=== PATIENT | male | born 1960 | race Caucasian/White ===

== ENCOUNTER 2016-09-11 05:24 | Day surgery (SDC) | payer OTHER ==
[2016-09-06 14:22] VITALS: BMI 33.7
[2016-09-11] MEDS ORDERED: POVIDONE-IODINE OINTMENT 10% - 28.4 GM TUBE ONE (12:09)
[2016-09-11] MEDS ORDERED: LIDOCAINE HCL 1%, 10 MG/ML (20ML VIAL) ONE (12:09)
[2016-09-11] MEDS ORDERED: HEPARIN NA (PORCINE) 5,000 UNITS/ML 1ML VIAL ONE (12:09)
--- NOTE | 2016-09-11 12:26 | HP ---
Satellite [facility] - Chief Complaint Chief Complaint: Renal failure History of Present Illness: 56 year old man who has ESRD on HD since April with Permacath. Chronic access needed. He is left handed. History Source: Patient Limitations to Obtaining History: No Limitations - Past Medical History Allergies/Adverse Reactions: Allergies Allergy/AdvReac Type Severity Reaction Status Date / Time No Known Allergies Allergy Verified 09/11/16 10:41 Cardiovascular: Yes: HTN Pulmonary: Yes: COPD Endocrine: Yes: Diabetes Mellitus - Current Medications Current Medications: Home Medications Medication Instructions Recorded Albuterol Sulfate Inhaler - 1 puff DAILY 09/06/16 [Ventolin HFA Inhaler -] Amlodipine Besylate 10 mg PO DAILY 09/06/16 Atorvastatin Ca [Lipitor] 20 mg PO DAILY 09/06/16 Calcium Acetate 667 mg PO DAILY 09/06/16 Cholecalciferol (Vitamin D3) 5,000 unit PO DAILY 09/06/16 [Vitamin D3] Fluticasone/Vilanterol [Breo 1 each IH DAILY 09/06/16 Ellipta 100-25 Mcg INH] Furosemide [Lasix] 40 mg PO ASDIR 09/06/16 Hydralazine HCl 100 mg PO BID 09/06/16 Insulin (Levemir) [Levemir Flexpen 20 units SQ DAILY 09/06/16 -] Satellite Physical Exam - Physical Examination Vital Signs: Vital Signs Period Temp Pulse Resp BP Sys/Sandoval Pulse Ox Last 24 Hr 98.2 F 84 20 114/62 99 General Appearance: Alert & Oriented x3 ENT: Clear Lung: Clear to auscultation Heart: Regular rate & rhythm Abdomen: Soft Extremities: No edema Satellite Impression/Plan - Impression/Plan Impression: ESRD on HD Operative Procedure: Creation AV fistula right arm Date to be Performed: 09/11/16
[2016-09-11] MEDS ORDERED: PAPAVERINE HCL 30 MG/1 ML 10 ML VIAL NR ONE (12:31)
[2016-09-11] MEDS ORDERED: PROPOFOL 20 ML ONE (12:31)
[2016-09-11] MEDS ORDERED: MIDAZOLAM HCL 2 MG/2 ML SINGLE DOSE VIAL ONE ×2 (12:32→12:36)
[2016-09-11] MEDS ORDERED: LIDOCAINE HCL/PF 2% SDV 5ML VIAL ONE (12:45)
[2016-09-11] MEDS ORDERED: LIDOCAINE HCL 1%, 10 MG/ML (20ML VIAL) IJ ONE (13:08)
[2016-09-11] MEDS ORDERED: ACETAMINOPHEN 325 MG TABLET (FP) PO PRN (13:59)
[2016-09-11] MEDS ORDERED: oxyCODONE HCL 5 MG TABLET PO PRN (13:59)
--- NOTE | 2016-09-11 13:59 | OP ---
Operative Note - Note: Operative Date: 09/11/16 Pre-Operative Diagnosis: ESRD Operation: Creation AV fistula right arm Post-Operative Diagnosis: Same as Pre-op Surgeon: Severo Little Anesthesiologist/CHURN TENDER: Milind Ramírez Anesthesia: Fractional Operative Report Dictated: Yes
[2016-09-11] MEDS ORDERED: ONDANSETRON 4 MG/2 ML VIAL IVPUSH PRN (14:04)
[2016-09-11] MEDS ORDERED: PROMETHAZINE HCL 25 MG/1 ML VIAL IVPUSH PRN (14:04)
[2016-09-11] MEDS ORDERED: SODIUM CHLORIDE 1,000 ML IV SCH (14:15)
[2016-09-11 15:42] VITALS: TEMP 97.4
[2016-09-11 15:59] VITALS: BP 133/65; PULSE 71
--- NOTE | 2016-09-14 07:58 | OP ---
DATE OF OPERATION: 09/11/2016 SURGEON: Severo Barajas MD PROCEDURE: Creation of arteriovenous fistula, right arm. PREOPERATIVE DIAGNOSIS: Renal failure. POSTOPERATIVE DIAGNOSIS: Renal failure. ANESTHESIA: Fractional. ANESTHESIOLOGIST: Addison Ramírez MD OPERATIVE FINDINGS: The right cephalic vein was patent down to the wrist. The radial artery was approximately 3 mm in diameter. DESCRIPTION OF OPERATIVE PROCEDURE: Following routine patient identification with side and site verification, intravenous sedation was established. The right arm and hand were prepped with ChloraPrep. Xylocaine 1% was infiltrated over the radial artery and cephalic vein just proximal to the wrist and a longitudinal incision made between the two. The vein was mobilized from its bed with sharp dissection and cautery for hemostasis. The vein was ligated distally and incised. It was distended with heparin and papaverine solution. Number 5 and number 8 feeding tubes were passed proximally without resistance. The vein was filled with heparin and was occluded with a small bulldog clamp. The artery was then exposed and encircled proximally and distally with vessel loops. Small side branches were ligated and divided. The artery was then occluded with Yasargil clips and opened with a longitudinal arteriotomy measuring approximately 6 mm. The vein was freed and spatulated and anastomosed to the side of the artery with running suture of 6-0 Prolene. Prior to completion of the suture line, the artery was allowed to back bleed and flushed, and the vessels were all flushed with heparin solution. Suture line was completed, and all vessels were released. There was good flow through the anastomosis with a palpable thrill proximally. Bleeding from the suture line was controlled with Surgicel. When hemostasis was adequate, the wound was irrigated and closed with interrupted suture of 3-0 Vicryl and skin emerita. Sterile dressings were applied, and the patient was taken to the recovery room in stable condition. SEVERO BARAJAS M.D. [id number]
== END 2016-09-11 15:15 | disposition home or self-care (01) ==
LOC: JASU-SURG 05:24
PROVIDERS: ATTEND Surgery
PROC: 031B0ZF Bypass Right Radial Artery to Lower Arm Vein, Open Approach (ICD-10-PCS; principal; 2016-09-11 12:30)
DX: I12.0 Hypertensive chronic kidney disease with stage 5 chronic kidney disease or end stage renal disease (principal); E11.22 Type 2 diabetes mellitus with diabetic chronic kidney disease; N18.6 End stage renal disease; N17.9 Acute kidney failure, unspecified; Z79.4 Long term (current) use of insulin
CPT/HCPCS: 36415; 84132; 94760; J1644

== ENCOUNTER 2019-01-12 10:32 | Inpatient (IN) | payer OTHER, MEDICARE ==
[2019-01-12 11:47] LABS: BASO % 0.9 % (0-2.0); HEMATOCRIT 37.3 % (35.4-49); HEMOGLOBIN 12.2 GM/dL (11.7-16.9); LYMPH % 16.6 % (8-40); MCH 31.2 pg (25.7-33.7); MCHC 32.7 g/dl (32.0-35.9); MEAN CELL VOLUME 95.4 fl (80-96); MEAN PLT VOLUME 8.3 fl (7.5-11.1); MONO % 3.2 % (3.8-10.2); NEUT % 78.3 % (42.8-82.8); PLATELET COUNT 167 K/MM3 (134-434); RDW 15.1 % (11.9-15.9); WHITE BLOOD COUNT 10.2 K/mm3 (4.0-10.0)
--- NOTE | 2019-01-12 11:48 | PDOC ---
*Physical Exam - Vital Signs Last Vital Signs Temp Pulse Resp BP Pulse Ox 97.8 F 44 L 16 181/62 H 99 01/12/19 10:39 01/12/19 10:39 01/12/19 10:39 01/12/19 10:39 01/12/19 10:39 ED Treatment Course - LABORATORY CBC & Chemistry Diagram: 01/13/19 05:50 01/13/19 05:50 Medical Decision Making - Critical Care Time Total Critical Care Time (minutes): 60 Critical Care Statement: The care of this patient involved high complexity decision making to prevent further life threatening deterioration of the patient 's condition and/or to evaluate & treat vital organ system(s) failure or risk of failure. - Medical Decision Making 01/12/19 11:48 This is a 58-year-old male end-stage renal disease presenting to the emergency department because his fistula is clogged. Last dialysis was 4 days ago. Patient denies chest pain, shortness of breath. 58-year-old male presenting with thrombosed fistula Pt seen by Midlevel Provider under my direct supervision Pt interviewed and examined Ancillary studies reviewed EKG: Bradycardia, intraventricular block, no ST elevations, EKG is concerning for hyperkalemia First set of labs hemolyzed Laboratory Tests 01/12/19 12:30 Potassium 8.3 H* BUN 82.5 H Creatinine 14.8 H* Labs finally return Pt hyperkalemic Insulin/Dextrose/Calcium/HCO3 ordered Lokelma approved by Dr Cross Pt walking around the ER Angry, refusing multiple interventions Dr. Cross has seen this patient in the ER After seeing Dr Cross, he is agreeable to getting into the stretcher Upgraded to ICU based on lab Earl Ba in the ER to place permacath I agree with plan as outlined by Midlevel Provider 01/12/19 13:48 01/12/19 13:48 Discharge - Discharge Information Problems reviewed: Yes Clinical Impression/Diagnosis: Thrombosis of arteriovenous fistula Qualifiers: Encounter type: initial encounter Qualified Code(s): T82.868A - Thrombosis due to vascular prosthetic devices, implants and grafts, initial encounter Condition: Fair - Admission Yes - Follow up/Referral - Patient Discharge Instructions - Post Discharge Activity
[2019-01-12 12:05] LABS: INR 1.07 (0.83-1.09); PROTHROMBIN TIME (PATIENT) 12.6 SEC (9.7-13.0)
[2019-01-12 12:08] LABS: ACTIVATED PTT 32.8 SECONDS (25.2-36.5)
--- NOTE | 2019-01-12 12:20 | PDOC ---
History of Present Illness - General Chief Complaint: Dialysis Shunt Problem Stated Complaint: SENT BY PCP Time Seen by Provider: 01/12/19 10:53 History Source: Patient Exam Limitations: No Limitations Past History - Past Medical History Allergies/Adverse Reactions: Allergies Allergy/AdvReac Type Severity Reaction Status Date / Time No Known Allergies Allergy Verified 01/12/19 10:43 Home Medications: Ambulatory Orders Albuterol Sulfate Inhaler - [Ventolin HFA Inhaler -] 1 puff DAILY 09/06/16 Amlodipine Besylate 10 mg PO DAILY 09/06/16 Atorvastatin Ca [Lipitor] 20 mg PO DAILY 09/06/16 Calcium Acetate 667 mg PO DAILY 09/06/16 Cholecalciferol (Vitamin D3) [Vitamin D3] 5,000 unit PO DAILY 09/06/16 Fluticasone/Vilanterol [Breo Ellipta 100-25 Mcg INH] 1 each IH DAILY 09/06/16 Furosemide [Lasix] 40 mg PO ASDIR 09/06/16 Hydralazine HCl 100 mg PO BID 09/06/16 Insulin (Levemir) [Levemir Flexpen -] 20 units SQ DAILY 09/06/16 Anemia: No Asthma: Yes (on inhalers) Cancer: No Cardiac Disorders: No CVA: No COPD: No CHF: No Diabetes: Yes Dialysis: Yes GI Disorders: No Disorders: No HTN: Yes Hypercholesterolemia: No Liver Disease: No Seizures: No Thyroid Disease: No - Psycho Social/Smoking Cessation Hx Smoking History: Former smoker Have you smoked in the past 12 months: No If you are a former smoker, when did you quit?: 2009 Information on smoking cessation initiated: No Hx Alcohol Use: No Drug/Substance Use Hx: No *Physical Exam - Vital Signs Last Vital Signs Temp Pulse Resp BP Pulse Ox 97.8 F 44 L 16 181/62 H 99 01/12/19 10:39 01/12/19 10:39 01/12/19 10:39 01/12/19 10:39 01/12/19 10:39 - Physical Exam General Appearance: No: Apparent Distress Respiratory/Chest: positive: Lungs Clear, Normal Breath Sounds. negative: Respiratory Distress Cardiovascular: positive: Bradycardia. negative: Murmur Gastrointestinal/Abdominal: positive: Soft. negative: Tender Extremity: positive: Other (R forearm AV fistula - difficult to feel thrill, no erythema) Integumentary: positive: Normal Color. negative: Swelling, Ecchymosis, Bruising Neurologic: positive: Alert ED Treatment Course - LABORATORY CBC & Chemistry Diagram: 01/12/19 11:33 01/12/19 11:33 - ADDITIONAL ORDERS Additional order review: Laboratory Results 01/12/19 11:33 PT with INR 12.60 INR 1.07 PTT (Actin FS) 32.8 01/12/19 11:33 RBC 3.90 L MCV 95.4 MCHC 32.7 RDW 15.1 MPV 8.3 Neutrophils % 78.3 Lymphocytes % 16.6 Monocytes % 3.2 L Eosinophils % 1.0 Basophils % 0.9 - RADIOLOGY Radiology Studies Ordered: Category Date Time Status CHEST PA & LAT [RAD] Stat Radiology 01/12/19 11:20 Ordered Medical Decision Making - Medical Decision Making 58 y/o M hx of ESRD on HD (//Fri; last dialysis 01/09), HTN, DM was sent by Dr. Little for clotted R arm AV fistula to be admitted to go to OR today. Patient was unable to get dialysis done today due to clotted fistula. Denies fever, sob, cp, abd pain, n/v. D/W Dr. Little - wants pre-op work-up and to keep NPO; patient to go to OR at 4:30 PM today Patient's PCP, Dr. Chavira, made aware as well EKG: Ventricular rate at 34 bpm, RBBB noted (seen on prior EKG as well) Prior EKG was from 2 years ago Patient is on Coreg Patient will need cardiac clearance prior to going to OR Awaiting to hear back from Dr. Wallace for cardiac clearance 01/12/19 12:14 Dr. Wallace currently seeing patient CMP hemolyzed; will get another sample Patient to be admitted 01/12/19 12:26 Discharge - Discharge Information Problems reviewed: Yes Clinical Impression/Diagnosis: Thrombosis of arteriovenous fistula Qualifiers: Encounter type: initial encounter Qualified Code(s): T82.868A - Thrombosis due to vascular prosthetic devices, implants and grafts, initial encounter Condition: Stable - Admission Yes - Additional Discharge Information Prescription Drug Monitoring Program (I-STOP) results: I-STOP not reviewed - Follow up/Referral Referrals: Orquidea Chavira MD [Primary Care Provider] - - Patient Discharge Instructions - Post Discharge Activity
--- NOTE | 2019-01-12 12:38 | CON.CARD ---
Consult Consult Specialty:: Cardiology Referred by:: ER/Dr. Chavira Reason for Consultation:: Preop, abnl ekg - History of Present Illness Chief Complaint: clotted AV fistula History of Present Illness: 58 year old man with a pmh HTN, DMII, HLD, ESRD on HD last 01/09, sent to ER by vascular for clotted R AV fistula, planned for declotting, noted to be bradycardic with EKG showing likely ventricular escape rhythm at 34bpm. pt seen and examined in the ER. Pt angry and not cooperative with history or exam. pt states he has no heart problem. states he is always bradycardic and that his potassium level is always high. denies chest pain, sob, palpitations, pnd, orthopnea or LE edema. chemistry panel is not back yet as first sample clotted. - History Source History Provided By: Patient, Medical Record Limitations to Obtaining History: Poor Historian - Past Medical History Cardio/Vascular: Yes: HTN Pulmonary: Yes: COPD Endocrine: Yes: Diabetes Mellitus - Alcohol/Substance Use Hx Alcohol Use: No - Smoking History Smoking history: Former smoker Have you smoked in the past 12 months: No If you are a former smoker, when did you quit?: 2009 Home Medications - Allergies Allergies/Adverse Reactions: Allergies Allergy/AdvReac Type Severity Reaction Status Date / Time No Known Allergies Allergy Verified 01/12/19 10:43 - Home Medications Home Medications: Ambulatory Orders Albuterol Sulfate Inhaler - [Ventolin HFA Inhaler -] 1 puff DAILY 09/06/16 Amlodipine Besylate 10 mg PO DAILY 09/06/16 Atorvastatin Ca [Lipitor] 20 mg PO DAILY 09/06/16 Calcium Acetate 667 mg PO DAILY 09/06/16 Cholecalciferol (Vitamin D3) [Vitamin D3] 5,000 unit PO DAILY 09/06/16 Fluticasone/Vilanterol [Breo Ellipta 100-25 Mcg INH] 1 each IH DAILY 09/06/16 Furosemide [Lasix] 40 mg PO ASDIR 09/06/16 Hydralazine HCl 100 mg PO BID 09/06/16 Insulin (Levemir) [Levemir Flexpen -] 20 units SQ DAILY 09/06/16 Review of Systems - Review of Systems Constitutional: denies: No Symptoms, Chills, Diaphoresis, Fever, Lethargy, Loss of Appetite, Malaise, Night Sweats, Unintentional Wgt. Loss, Weakness, Other Eyes: denies: No Symptoms, Blind Spots, Blurred Vision, Double Vision, Eye Pain , Floaters, Photophobia, Recent Change in Vision, Other HENT: denies: No Symptoms, Difficult Swallowing, Ear Discharge, Ear Pain, Epistaxis, Gingival Bleeding, Hearing Loss, Mouth Swelling, Nasal Congestion, Ocular Prosthesis, Throat Pain, Toothache, Ringing in Ears, Other Neck: denies: No Symptoms, Decreased ROM, Lumps, Pain on Movement, Stiffness, Swollen Glands, Tenderness, Other Cardiovascular: denies: No Symptoms, Chest Pain, Edema, Palpitations, Shortness of Breath, Other Respiratory: denies: No Symptoms, Cough, Exercise Intolerance, Hemoptysis, Orthopnea, PND, Snoring, SOB, SOB on Exertion, Wheezing, Other Gastrointestinal: denies: No Symptoms, Abdominal Pain, Bloating, Constipation, Diarrhea, Dysphagia, Indigestion, Melena, Nausea, Rectal Bleeding, Vomiting, Vomiting Blood, Other Genitourinary: denies: No Symptoms, Burning, Discharge, Dysuria, Flank Pain, Frequency, Hematuria, Incontinence, Lesions, Menses, Pain, Testicular Mass, Testicular Pain, Testicular Swelling, Urgency, Vaginal Bleeding, Other Breasts: denies: No Symptoms Reported, See HPI, Breast Implants, Discharge from Nipple, Lumps, Pain, Skin Changes, Other Musculoskeletal: denies: No Symptoms, Back Pain, Crepitus, Decreased ROM, Extremity Pain, Joint Pain, Joint Swelling, Muscle Pain, Muscle Cramps, Muscle Weakness, Other Integumentary: denies: No Symptoms, Blister, Bruising, Change in Color, Eczema, Erythema, Incision, Lesions, Lump, Pallor, Pruritis, Rash, Wound, Other Neurological: denies: No Symptoms, Change in LOC, Change in Speech, Confusion, Dizziness, Headache, Incoordination, Numbness, Parasthesia, Pre-Existing Deficit , Seizure, Syncope, Tremors, Unsteady Gait, Weakness, Other Endocrine: denies: No Symptoms, Excessive Sweating, Flushing, Increased Hunger, Increased Thirst, Intolerance to Cold, Intolerance to Heat, Unexplained Weight Gain, Unexplained Weight Loss, Other Hematology/Lymphatic: denies: No Symptoms, Easily Bruised, Excessive Bleeding, Swollen Glands, Other Psychiatric: denies: No Symptoms, Altered Sleep Pattern, Anxiety, Depression, Hallucinations, Panic, Paranoia, Suicidal, Other Vital Signs: Vital Signs Temperature 97.8 F 01/12/19 10:39 Pulse Rate 44 L 01/12/19 10:39 Respiratory Rate 16 01/12/19 10:39 Blood Pressure 181/62 H 01/12/19 10:39 O2 Sat by Pulse Oximetry (%) 99 01/12/19 10:39 Constitutional: Yes: No Distress, Calm Eyes: Yes: Conjunctiva Clear, EOM Intact HENT: Yes: Atraumatic, Normocephalic Neck: Yes: Supple, Trachea Midline Respiratory: Yes: Regular, CTA Bilaterally. No: Rales, Rhonchi, Wheezes Gastrointestinal: Yes: Normal Bowel Sounds, Soft Cardiovascular: Yes: Bradycardia. No: Regular Rate and Rhythm, Tachycardia, Pulse Irregular, Gallop, Rub, Varicosities JVD: No Carotid Bruit: No PMI: Non-Displaced Heart Sounds: Yes: S1, S2 Murmur: No: Systolic Murmur Edema: No Peripheral Pulses WNL: Yes Peripheral Pulses: 2+ Left Doralis Pedis, 2+ Right Dorsalis Pedis Neurological: Yes: Alert, Oriented Psychiatric: Yes: Alert, Oriented - Other Data Labs, Other Data: CBC, BMP 01/12/19 11:33 INR, PTT INR 1.07 (0.83-1.09) 01/12/19 11:33 ekg-ventricular escape rhythm 34bpm. Imaging - Results EKG: Report Reviewed, Image Reviewed Assessment/Plan 58 year old man with a pmh HTN, DMII, HLD, ESRD on HD last 01/09, sent to ER by vascular for clotted R AV fistula, planned for declotting, noted to be bradycardic with EKG showing likely ventricular escape rhythm at 34bpm. pt seen and examined in the ER. Pt angry and not cooperative with history or exam. pt states he has no heart problem. states he is always bradycardic and that his potassium level is always high. denies chest pain, sob, palpitations, pnd, orthopnea or LE edema. chemistry panel is not back yet as first sample clotted. Preop cardiovascular exam -do not recommend going to surgery with an unstable rhythm -pt should have further evaluation and treatment of source of bradyarrhythmia first Abnormal ekg -appears c/w ventricular escape rhythm at 34bpm -check chemistry panel candida for K+ -if K+ abnl will need correction -stop Carvedilol -can give glucagon -move to monitored bed pt became very agitated during this conversation. would not discuss his current condition any further. raised the possibility of needing a PPM but he refused to discuss it.
--- NOTE | 2019-01-12 13:11 | HP ---
Admitting History and Physical - Primary Care Physician PCP: Orquidea Chavira - Admission Chief Complaint: Not working fistula History of Present Illness: Patient is a 58 y/o male with past medical history of ESRD on HD, DM, HTN. Patient presented to [facility] from [facility] where they were unable to access R forearm fistula. Patient was unable to have HD done due to clotted fistula. Patient was to go to OR today with Dr Little for his clotted fistula when Pre-Op EKG showed slow ventricular rate. Cardiology was consulted and was not cleared from cardiac perspective for surgery. History Source: Patient Limitations to Obtaining History: No Limitations - Past Medical History Cardiovascular: Yes: HTN Pulmonary: Yes: COPD Endocrine: Yes: Diabetes Mellitus - Smoking History Smoking history: Former smoker Have you smoked in the past 12 months: No If you are a former smoker, when did you quit?: 2009 - Alcohol/Substance Use Hx Alcohol Use: No - Social History Usual Living Arrangement: Yes: Alone ADL: Independent Home Medications - Allergies Allergies/Adverse Reactions: Allergies Allergy/AdvReac Type Severity Reaction Status Date / Time No Known Allergies Allergy Verified 01/12/19 10:43 - Home Medications Home Medications: Ambulatory Orders Albuterol Sulfate Inhaler - [Ventolin HFA Inhaler -] 1 puff DAILY 09/06/16 Amlodipine Besylate 10 mg PO DAILY 09/06/16 Atorvastatin Ca [Lipitor] 20 mg PO DAILY 09/06/16 Calcium Acetate 667 mg PO DAILY 09/06/16 Cholecalciferol (Vitamin D3) [Vitamin D3] 5,000 unit PO DAILY 09/06/16 Fluticasone/Vilanterol [Breo Ellipta 100-25 Mcg INH] 1 each IH DAILY 09/06/16 Furosemide [Lasix] 40 mg PO ASDIR 09/06/16 Hydralazine HCl 100 mg PO BID 09/06/16 Insulin (Levemir) [Levemir Flexpen -] 20 units SQ DAILY 09/06/16 Review of Systems - Review of Systems Constitutional: reports: No Symptoms Eyes: reports: No Symptoms HENT: reports: No Symptoms Neck: reports: No Symptoms Cardiovascular: reports: No Symptoms Respiratory: reports: No Symptoms Gastrointestinal: reports: Diarrhea Genitourinary: reports: No Symptoms Breasts: reports: No Symptoms Reported Musculoskeletal: reports: No Symptoms Integumentary: reports: No Symptoms Neurological: reports: No Symptoms Endocrine: reports: No Symptoms Hematology/Lymphatic: reports: No Symptoms Psychiatric: reports: No Symptoms Physical Examination Vital Signs: Vital Signs Temperature 97.8 F 01/12/19 10:39 Pulse Rate 44 L 01/12/19 10:39 Respiratory Rate 16 01/12/19 10:39 Blood Pressure 181/62 H 01/12/19 10:39 O2 Sat by Pulse Oximetry (%) 99 01/12/19 10:39 Constitutional: Yes: No Distress, Calm, Obese Eyes: Yes: Conjunctiva Clear HENT: Yes: Atraumatic Neck: Yes: Supple Cardiovascular: Yes: Bradycardia Respiratory: Yes: Regular, Diminished Gastrointestinal: Yes: Normal Bowel Sounds, Soft, Abdomen, Obese Musculoskeletal: Yes: WNL Extremities: Yes: WNL Edema: Yes Edema: LLE: Trace, RLE: Trace Neurological: Yes: Alert, Oriented Psychiatric: Yes: Alert, Oriented, Agitated Labs: CBC, BMP 01/12/19 11:33 Problem List - Problems (1) ESRD on hemodialysis Assessment/Plan: -Renal on board -BUN/Cr 82.5/14.8 -monitor renal function -K 8.3 will upgrade patient to ICU, surgical PA will place shiley for emergent dialysis -tele monitoring Code(s): N18.6 - END STAGE RENAL DISEASE; Z99.2 - DEPENDENCE ON RENAL DIALYSIS (2) HTN (hypertension) Assessment/Plan: -Carvedilol on hold to ventricular rate -Hydralazine Code(s): I10 - ESSENTIAL (PRIMARY) HYPERTENSION (3) Diabetes mellitus Assessment/Plan: -BGM ACHS -Levemir -ISS -HgA1c Code(s): E11.9 - TYPE 2 DIABETES MELLITUS WITHOUT COMPLICATIONS (4) Thrombosis of arteriovenous fistula Assessment/Plan: -Vascular on board -OR on hold due to ventricular rate of 34 -surgical PA will place Shiley in meantime for emergent dialysis Code(s): T82.868A - THROMBOSIS DUE TO VASCULAR PROSTH DEV/GRFT, INIT Qualifiers: Encounter type: initial encounter Qualified Code(s): T82.868A - Thrombosis due to vascular prosthetic devices, implants and grafts, initial encounter (5) Abnormal EKG Assessment/Plan: -Cardiology on board -ICU monitoring -EKG with ventricular rate 34bpm -secondary to hyperkalemia K 8.3 -K 8.3 will upgrade patient to ICU, surgical PA will place shiley for emergent dialysis Code(s): R94.31 - ABNORMAL ELECTROCARDIOGRAM [ECG] [EKG] Assessment/Plan see problem list dvt ppx
[2019-01-12 13:14] LABS: BILIRUBIN,TOTAL 0.4 mg/dL (0.2-1); BLOOD UREA NITROGEN 82.5 mg/dL (7-18); CALCIUM 8.5 mg/dL (8.5-10.1); TOT PROT 7.4 g/dl (6.4-8.2)
[2019-01-12 13:22] LABS: CREATININE 14.8 mg/dL (0.55-1.3); POTASSIUM 8.3 mmol/L (3.5-5.1)
[2019-01-12] MEDS ORDERED: INSULIN REGULAR HUMAN 100 UNITS/ML *VIAL IVPUSH ONE ×2 (13:23→13:32)
[2019-01-12] MEDS ORDERED: DEXTROSE 50%-WATER - 25 GM/50 ML VIAL IVPUSH ONE (13:23)
[2019-01-12] MEDS ORDERED: CALCIUM GLUCONATE 10% - 1,000 MG/10 ML VIAL IVPUSH ONE (13:23)
[2019-01-12] MEDS ORDERED: SODIUM BICARBONATE 8.4% 50 MEQ/50 ML DISP.SYRIN IVPUSH ONE (13:33)
[2019-01-12] MEDS ORDERED: DEXTROSE 50%-WATER 25 GM/50 ML DISP.SYRIN ONE (13:35)
[2019-01-12] MEDS ORDERED: CALCIUM GLUCONATE 10% - 1,000 MG/10 ML VIAL ONE (13:35)
[2019-01-12] MEDS ORDERED: FUROSEMIDE 40 MG TABLET (FP) PO SCH (14:00)
--- NOTE | 2019-01-12 14:46 | PROC ---
Central Line Insertion - Procedure Note TIME OUT performed prior to this procedure with verbal confirmation of correct patient identity, correct side, agreement of the procedure, correct patient position, availability of necessary equipment. The consent form is complete and accurate. Risk of possible infection and bleeding a have been discussed with the patient. Safety precautions based on patient history or medication use has been addressed. Coag profile within normal limits to do procedure safely. Indication: Other (RUE AVF clotted and needs HD. ) Central Line: Dialysis Cath, Dual Lumen Position: Supine Area prepped with Chlorhexidine solution then draped using sterile barrier protection. Anesthesia: Lidocaine 1% Technique used: Seldinger Ultrasound Guided Assistance: Yes Site: Right Femoral Dark venous non-pulsatile flow noted from hub of needle. The catheter was introduced. Guide wire removed intact. Each port aspirated then flushed with sterile normal saline and Tegu caps placed. Line secured to skin with nylon suture. Biopatch placed around base of line. Sterile occlusive dressing applied. No complications. Patient tolerated the procedure well. Line ok to use for HD.
[2019-01-12] MEDS ORDERED: FUROSEMIDE 40 MG TABLET (FP) ONE ×2 (14:47→14:51)
[2019-01-12] MEDS ORDERED: SODIUM BICARBONATE 8.4% 50 MEQ/50 ML VIAL ONE (14:47)
--- NOTE | 2019-01-12 14:53 | CONSULT ---
Consult Consult Specialty:: Nephrology Reason for Consultation:: ESRD - History of Present Illness Chief Complaint: sent in for clotted access History of Present Illness: Pt is a 58 year old male with pmhx of htn, dm, hld, esrd who presented to the ER with a clotted av fistula. He was found to be hansa and have an ecg with vent escape rhythm at 34 bpm. His first set of labs were hemolyzed. His potassium was 8.3. I was called to evaluate pt for HD. He says he feels well. He denies shortness of breath or palpitations. He was anxious earlier but is calmer now. His last HD was on 01/09. - History Source History Provided By: Patient, Medical Record - Past Medical History Cardio/Vascular: Yes: HTN Pulmonary: Yes: COPD Renal/: Yes: Renal Failure, Renal Inusuff, Hemodialysis Endocrine: Yes: Diabetes Mellitus - Alcohol/Substance Use Hx Alcohol Use: No - Smoking History Smoking history: Former smoker Have you smoked in the past 12 months: No If you are a former smoker, when did you quit?: 2009 - Social History ADL: Independent Home Medications - Allergies Allergies/Adverse Reactions: Allergies Allergy/AdvReac Type Severity Reaction Status Date / Time No Known Allergies Allergy Verified 01/12/19 10:43 - Home Medications Home Medications: Ambulatory Orders Albuterol Sulfate Inhaler - [Ventolin HFA Inhaler -] 1 puff DAILY 09/06/16 Amlodipine Besylate 10 mg PO DAILY 09/06/16 Atorvastatin Ca [Lipitor] 20 mg PO DAILY 09/06/16 Calcium Acetate 667 mg PO DAILY 09/06/16 Cholecalciferol (Vitamin D3) [Vitamin D3] 5,000 unit PO DAILY 09/06/16 Fluticasone/Vilanterol [Breo Ellipta 100-25 Mcg INH] 1 each IH DAILY 09/06/16 Furosemide [Lasix] 40 mg PO ASDIR 09/06/16 Hydralazine HCl 100 mg PO BID 09/06/16 Insulin (Levemir) [Levemir Flexpen -] 20 units SQ DAILY 09/06/16 Family Medical History Family History: Denies Review of Systems - Review of Systems Constitutional: reports: No Symptoms Eyes: reports: No Symptoms HENT: reports: No Symptoms Neck: reports: No Symptoms Cardiovascular: reports: No Symptoms Respiratory: reports: No Symptoms Gastrointestinal: reports: No Symptoms Genitourinary: reports: No Symptoms Musculoskeletal: reports: No Symptoms Integumentary: reports: No Symptoms Neurological: reports: No Symptoms Endocrine: reports: No Symptoms Hematology/Lymphatic: reports: No Symptoms Physical Exam Vital Signs: Vital Signs Temperature 97.8 F 01/12/19 10:39 Pulse Rate 44 L 01/12/19 10:39 Respiratory Rate 16 01/12/19 10:39 Blood Pressure 181/62 H 01/12/19 10:39 O2 Sat by Pulse Oximetry (%) 99 01/12/19 10:39 Constitutional: Yes: Calm Eyes: Yes: Conjunctiva Clear HENT: Yes: Atraumatic Neck: Yes: Supple Cardiovascular: Yes: Bradycardia, Pulse Irregular, S1, S2 Gastrointestinal: Yes: Soft Renal/: Yes: WNL Musculoskeletal: Yes: WNL Edema: Yes Edema: LLE: 1+, RLE: 1+ Neurological: Yes: Oriented Psychiatric: Yes: Oriented Labs: CBC, BMP 01/12/19 11:33 01/12/19 12:30 Laboratory Tests 01/12/19 01/12/19 01/12/19 11:33 11:33 12:30 WBC 10.2 H Hgb 12.2 PT with INR 12.60 INR 1.07 PTT (Actin FS) 32.8 Sodium 134 L Potassium 8.3 H* BUN 82.5 H Creatinine 14.8 H* Random Glucose 148 H Problem List - Problems (1) Hyperkalemia Code(s): E87.5 - HYPERKALEMIA (2) Abnormal EKG Code(s): R94.31 - ABNORMAL ELECTROCARDIOGRAM [ECG] [EKG] (3) Diabetes mellitus Code(s): E11.9 - TYPE 2 DIABETES MELLITUS WITHOUT COMPLICATIONS (4) ESRD on hemodialysis Code(s): N18.6 - END STAGE RENAL DISEASE; Z99.2 - DEPENDENCE ON RENAL DIALYSIS (5) HTN (hypertension) Code(s): I10 - ESSENTIAL (PRIMARY) HYPERTENSION (6) Thrombosis of arteriovenous fistula Code(s): T82.868A - THROMBOSIS DUE TO VASCULAR PROSTH DEV/GRFT, INIT Qualifiers: Encounter type: initial encounter Qualified Code(s): T82.868A - Thrombosis due to vascular prosthetic devices, implants and grafts, initial encounter Assessment/Plan Current Medications Generic Name Dose Route Start Last Admin Trade Name Corby PRN Reason Stop Dose Admin Calcium Acetate 667 mg 01/12/19 17:30 Phoslo - PO TIDCM [facility] Chlorhexidine Gluconate 1 applic 01/12/19 22:00 Hibiclens For Decolonization - TP HS [facility] Furosemide 40 mg 01/12/19 14:00 Lasix - PO BID@0600,1400 [facility] Heparin Sodium (Porcine) 5,000 unit 01/12/19 22:00 Heparin - SQ BID [facility] Hydralazine HCl 50 mg 01/12/19 22:00 Apresoline - PO BID [facility] Insulin Aspart 1 vial 01/12/19 16:30 Novolog Vial Sliding Scale - SQ ACHS [facility] Protocol Insulin Detemir 30 units 01/12/19 22:00 Levemir Vial SQ HS [facility] Mupirocin 1 applic 01/12/19 22:00 Bactroban Ointment (For Decolonization) - NS 01/17/19 21:59 BID [facility] Impression 1. ESRD 2. hyperkalemia 3. arrythmia 4. htn 5. dm 6. hld 7. clotted av fistula Plan - spoke to vascular, they will place shiley cath - admit to ICU - pt for urgent bedside dialysis in ICU - check potassium post HD - monitor on tele monitor - discussed with cardio and primary team
[2019-01-12] MEDS ORDERED: SODIUM CHLORIDE 250 ML IV PRN ×2 (15:00→15:01)
--- NOTE | 2019-01-12 15:54 | CONSULT ---
Consultation: REQUESTING PROVIDER: CONSULT REQUEST: We have been asked to medically evaluate this patient for ICU admission. HISTORY OF PRESENT ILLNESS: 58 y/o/m with PMHx of HTN, DM, HLD, ESRD on HD (Friday, , Friday) with last treatment on 01/09 who was sent to the ER for a clotted right sided AV fistula. He states his fistula was working normally on Friday but today it was not working. In the ED he was noted to be bradycardic and had an EKG showing ventricular escape rhythm at 34bpm. He was also found to be hyperkalemic at 8.3. He denies chest pain, SOB, palpitations, SOB, cough, fever, chills, headache, Past Medical History: HTN, DM, HLD, ESRD Past Surgical History: Right AV fistula REVIEW OF SYSTEMS: As per HPI PHYSICAL EXAMINATION Vital Signs - 24 hr 01/12/19 01/12/19 10:39 14:45 Temperature 97.8 F Pulse Rate 44 L Pulse Rate [ 45 L Apical] Respiratory 16 18 Rate Blood Pressure 181/62 H Blood Pressure 187/58 H [Arm] O2 Sat by Pulse 99 96 Oximetry (%) GENERAL: Awake, alert, and fully oriented, in no acute distress. HEAD: Normal with no signs of trauma. EYES: PERRL, EOMI EARS, NOSE, THROAT: oropharynx clear without exudates. Moist mucous membranes. NECK: Normal range of motion, supple without lymphadenopathy, JVD, or masses. LUNGS: Breath sounds equal, clear to auscultation bilaterally. No wheezes, and no crackles. No accessory muscle use. HEART: Bradycardic, regular rhythm, normal S1 and S2 without murmur, rub or gallop. ABDOMEN: Soft, nontender, not distended, normoactive bowel sounds, no guarding, no rebound, no masses EXTREMITIES: 2+ pulses, warm, well-perfused. No peripheral edema. NEUROLOGICAL: Cranial nerves II-XII intact. Normal speech. Normal gait. PSYCHIATRIC: Cooperative. Good eye contact. Appropriate mood and affect. Laboratory Results - last 24 hr 01/12/19 01/12/19 01/12/19 11:33 11:33 11:33 WBC 10.2 H RBC 3.90 L Hgb 12.2 Hct 37.3 MCV 95.4 MCH 31.2 MCHC 32.7 RDW 15.1 Plt Count 167 MPV 8.3 Absolute Neuts (auto) 8.0 Neutrophils % 78.3 Lymphocytes % 16.6 Monocytes % 3.2 L Eosinophils % 1.0 Basophils % 0.9 Nucleated RBC % 0 PT with INR 12.60 INR 1.07 PTT (Actin FS) 32.8 Sodium Cancelled Potassium Cancelled Chloride Cancelled Carbon Dioxide Cancelled Anion Gap Cancelled BUN Cancelled Creatinine Cancelled Est GFR (CKD-EPI)AfAm Cancelled Est GFR (CKD-EPI)NonAf Cancelled Random Glucose Cancelled Calcium Cancelled Total Bilirubin Cancelled AST Cancelled ALT Cancelled Alkaline Phosphatase Cancelled Total Protein Cancelled Albumin Cancelled Blood Type Antibody Screen 01/12/19 01/12/19 01/12/19 11:33 12:30 14:30 WBC RBC Hgb Hct MCV MCH MCHC RDW Plt Count MPV Absolute Neuts (auto) Neutrophils % Lymphocytes % Monocytes % Eosinophils % Basophils % Nucleated RBC % PT with INR INR PTT (Actin FS) Sodium 134 L Potassium 8.3 H* Chloride 103 Carbon Dioxide 23 Anion Gap 8 BUN 82.5 H Creatinine 14.8 H* Est GFR (CKD-EPI)AfAm 3.66 Est GFR (CKD-EPI)NonAf 3.16 Random Glucose 148 H Calcium 8.5 Total Bilirubin 0.4 AST 16 ALT 16 Alkaline Phosphatase 80 Total Protein 7.4 Albumin 4.0 Blood Type O POSITIVE O POSITIVE Antibody Screen Negative Active Medications Generic Name Dose Route Start Last Admin Trade Name Freq PRN Reason Stop Dose Admin Calcium Acetate 667 mg 01/12/19 17:30 Phoslo - PO TIDCM [facility] Chlorhexidine Gluconate 1 applic 01/12/19 22:00 Hibiclens For Decolonization - TP HS [facility] Furosemide 40 mg 01/12/19 14:00 01/12/19 14:50 Lasix - PO 40 mg BID@0600,1400 [facility] Administration Heparin Sodium (Porcine) 5,000 unit 01/12/19 22:00 Heparin - SQ BID [facility] Hydralazine HCl 50 mg 01/12/19 22:00 Apresoline - PO BID [facility] Sodium Chloride 250 mls @ 3,000 mls/hr 01/12/19 15:00 Normal Saline - IV 01/13/19 15:00 PRN PRN Hypotension during Dialysis Sodium Chloride 250 mls @ 3,000 mls/hr 01/12/19 15:01 Normal Saline - IV 01/13/19 15:01 PRN PRN Hypotension during Dialysis Insulin Aspart 1 vial 01/12/19 16:30 Novolog Vial Sliding Scale - SQ ACHS [facility] Protocol Insulin Detemir 30 units 01/12/19 22:00 Levemir Vial SQ HS [facility] Mupirocin 1 applic 01/12/19 22:00 Bactroban Ointment (For Decolonization) - NS 01/17/19 21:59 BID [facility] ASSESSMENT/PLAN: 58 y/o/m with PMHx of HTN, DM, HLD, ESRD on HD with last treatment on 01/09 who was sent to the ER for a clotted right sided AV fistula. Admitted for bradycardia and Hyperkalemia requiring urgent dialysis. #Neuro - AAOx3, monitor #Cardio - EKG showing likely ventricular escape rhythm at 34 bpm - Bradycardia likely due to Hyperkalemia vs Beta Stanislaw use - Hyperkalemia at 8.3, correcting with medical management and HD - Patient should not be on Beta Blockers during hospital stay or on discharge due to RBBB - Calcium Gluconate, Sodium Bicarb given in ED - Heart rate improving with HD, monitor - On Hydralazine and Lasix at home, will continue - Cardio on board #Resp - Keep O2 saturation >90% #Renal - ESRD, clotted R AV fistula. Last HD on 01/09 - Shiley catheter placed in ED on 01/12 - BUN/Cr at 82.5/14.8. Monitor renal function - Hyperkalemia of 8.3, correcting with medical management and hemodialysis - repeat BMP after HD - Nephro on board #GI - no active issues - Hep B and C tests pending #Endo - Hx of DM - ISS - BGMs #ID - afebrile, WBC 10.2 - monitor #Prophylaxis - Heparin #FEN - Renal Diet - Hyperkalemia, correcting #Dispo - ICU monitoring Visit type - Emergency Visit Emergency Visit: Yes ED Registration Date: 01/12/19 Care time: The patient presented to the Emergency Department on the above date and was hospitalized for further evaluation of their emergent condition. - New Patient This patient is new to me today: Yes Date on this admission: 01/12/19 - Critical Care Critical Care patient: Yes Total Critical Care Time (in minutes): 36 Critical Care Statement: The care of this patient involved high complexity decision making to prevent further life threatening deterioration of the patient 's condition and/or to evaluate & treat vital organ system(s) failure or risk of failure. ATTENDING PHYSICIAN STATEMENT I saw and evaluated the patient. I reviewed the resident's note and discussed the case with the resident. I agree with the resident's findings and plan as documented. SUBJECTIVE: OBJECTIVE: ASSESSMENT AND PLAN:
[2019-01-12 16:03] VITALS: BMI 32.8
[2019-01-12] MEDS ORDERED: CALCIUM ACETATE 667 MG CAPSULE (FP) PO SCH (17:30)
[2019-01-12] MEDS ORDERED: hydrALAZINE HCL 50 MG TABLET (FP) PO ONE (18:03)
[2019-01-12] MEDS: INSULIN SLIDING SCALE (NOVOLOG) 1 VIAL SQ SCH ×2 (18:51→21:53)
[2019-01-12 19:50] LABS: BLOOD UREA NITROGEN 30.2 mg/dL (7-18); CALCIUM 8.4 mg/dL (8.5-10.1); CREATININE 5.9 mg/dL (0.55-1.3); POTASSIUM 3.5 mmol/L (3.5-5.1)
[2019-01-12] MEDS ORDERED: hydrALAZINE HCL 20 MG/ML VIAL IVPUSH ONE (21:03)
--- NOTE | 2019-01-12 21:37 | PN ---
Progress Note (short form) - Note Progress Note: If OR time available in AM will proceed with fistula thrombectomy. Keep patient NPO.
[2019-01-12] MEDS ORDERED: hydrALAZINE HCL 50 MG TABLET (FP) PO SCH (22:00)
[2019-01-12] MEDS ORDERED: HEPARIN NA (PORCINE) 5,000 UNITS/ML 1ML VIAL SQ SCH (22:00)
[2019-01-12] MEDS ORDERED: INSULIN (LEVEMIR) 100 UNITS/ML UNITS SQ SCH (22:00)
[2019-01-12] MEDS ORDERED: MUPIROCIN 2% TOPICAL OINTMENT FOR DECOLONIZATION NS SCH (22:00)
[2019-01-12] MEDS ORDERED: CARVEDILOL 12.5 MG TABLET (FP) PO SCH (22:00)
[2019-01-12] MEDS ORDERED: CHLORHEXIDINE GLUCONATE 4% CLEANSER FOR DECOLONIZATION TP SCH (22:00)
[2019-01-13] MEDS ORDERED: hydrALAZINE HCL 50 MG TABLET (FP) PO ONE (05:17)
[2019-01-13] MEDS: INSULIN SLIDING SCALE (NOVOLOG) 1 VIAL SQ SCH ×3 (06:06→16:44)
[2019-01-13] MEDS: FUROSEMIDE 40 MG TABLET (FP) PO SCH ×2 (06:06→14:23)
[2019-01-13] MEDS ORDERED: INSULIN (LEVEMIR) 100 UNITS/ML UNITS SQ SCH ×2 (07:00→22:00)
[2019-01-13] MEDS ORDERED: hydrALAZINE HCL 20 MG/ML VIAL IVPUSH ONE ×2 (07:42→09:15)
[2019-01-13 07:57] LABS: BASO % 0.5 % (0-2.0); EOS % 0.9 % (0-4.5); HEMATOCRIT 33.4 % (35.4-49); HEMOGLOBIN 11.4 GM/dL (11.7-16.9); LYMPH % 13.5 % (8-40); MCH 31.9 pg (25.7-33.7); MCHC 34.1 g/dl (32.0-35.9); MEAN CELL VOLUME 93.5 fl (80-96); MEAN PLT VOLUME 8.3 fl (7.5-11.1); MONO % 4.7 % (3.8-10.2); NEUT % 80.4 % (42.8-82.8); PLATELET COUNT 113 K/MM3 (134-434); RBC 3.57 M/mm3 (4.00-5.60); RDW 15.1 % (11.9-15.9); WHITE BLOOD COUNT 5.1 K/mm3 (4.0-10.0)
[2019-01-13 08:20] LABS: ALBUMIN 3.1 g/dl (3.4-5.0); BILIRUBIN,TOTAL 0.4 mg/dL (0.2-1); BLOOD UREA NITROGEN 47.5 mg/dL (7-18); CALCIUM 7.7 mg/dL (8.5-10.1); MAGNESIUM 1.7 mg/dL (1.8-2.4); PHOSPHOROUS 6.5 mg/dL (2.5-4.9); POTASSIUM 5.1 mmol/L (3.5-5.1); TOT PROT 6.2 g/dl (6.4-8.2)
[2019-01-13 08:23] LABS: CREATININE 10.8 mg/dL (0.55-1.3)
[2019-01-13] MEDS ORDERED: PROPOFOL 20 ML ONE ×3 (08:56→10:18)
[2019-01-13] MEDS ORDERED: LIDOCAINE HCL 1%, 10 MG/ML (20ML VIAL) ONE (09:00)
[2019-01-13] MEDS ORDERED: HEPARIN NA (PORCINE) 5,000 UNITS/ML 1ML VIAL ONE ×3 (09:00→10:01)
--- NOTE | 2019-01-13 09:06 | PN ---
Progress Note, Physician - Current Medication List Current Medications: Active Medications Calcium Acetate (Phoslo -) 667 mg PO TIDCM [facility] Chlorhexidine Gluconate (Hibiclens For Decolonization -) 1 applic TP HS [facility] Last Admin: 01/12/19 21:40 Dose: 1 applic Furosemide (Lasix -) 40 mg PO BID@0600,1400 [facility] Last Admin: 01/13/19 06:06 Dose: 40 mg Heparin Sodium (Porcine) (Heparin -) 5,000 unit SQ BID [facility] Hydralazine HCl (Apresoline -) 50 mg PO BID [facility] Sodium Chloride (Normal Saline -) 250 mls @ 3,000 mls/hr IV PRN PRN PRN Reason: Hypotension during Dialysis Stop: 01/13/19 15:00 Sodium Chloride (Normal Saline -) 250 mls @ 3,000 mls/hr IV PRN PRN PRN Reason: Hypotension during Dialysis Stop: 01/13/19 15:01 Insulin Aspart (Novolog Vial Sliding Scale -) 1 vial SQ ACHS [facility]; Protocol Last Admin: 01/13/19 06:06 Dose: 8 units Insulin Detemir (Levemir Vial) 30 units SQ HS [facility] Insulin Detemir (Levemir Vial) 10 units SQ 0700 [facility] Mupirocin (Bactroban Ointment (For Decolonization) -) 1 applic NS BID [facility] Stop: 01/17/19 21:59 Last Admin: 01/13/19 02:36 Dose: 1 applic - Objective Vital Signs: Vital Signs Temperature 98.4 F 01/13/19 06:00 Pulse Rate 74 01/13/19 08:00 Respiratory Rate 18 01/13/19 08:00 Blood Pressure 196/94 H 01/13/19 08:00 O2 Sat by Pulse Oximetry (%) 96 01/12/19 22:00 Cardiovascular: Yes: S1, S2 Respiratory: Yes: Regular, CTA Bilaterally Gastrointestinal: Yes: Normal Bowel Sounds, Soft Labs: CBC, BMP 01/13/19 05:50 01/13/19 05:50 INR, PTT INR 1.07 (0.83-1.09) 01/12/19 11:33 Assessment/Plan - Problems (1) ESRD on hemodialysis Assessment/Plan: -Renal on board -Trend BUN/Cr -monitor renal function -K was8.[address] and had emergent dialysis--improved--5 -tele monitoring Code(s): N18.6 - END STAGE RENAL DISEASE; Z99.2 - DEPENDENCE ON RENAL DIALYSIS (2) HTN (hypertension) Assessment/Plan: -Carvedilol on hold to ventricular rate -Hydralazine Code(s): I10 - ESSENTIAL (PRIMARY) HYPERTENSION (3) Diabetes mellitus Assessment/Plan: -BGM ACHS -Levemir -ISS -HgA1c Code(s): E11.9 - TYPE 2 DIABETES MELLITUS WITHOUT COMPLICATIONS (4) Thrombosis of arteriovenous fistula Assessment/Plan: -Vascular on board-Thrombectomy today -OR on hold yesterday due to ventricular rate of 34 Code(s): T82.868A - THROMBOSIS DUE TO VASCULAR PROSTH DEV/GRFT, INIT Qualifiers: Encounter type: initial encounter Qualified Code(s): T82.868A - Thrombosis due to vascular prosthetic devices, implants and grafts, initial encounter (5) Abnormal EKG Assessment/Plan: -Cardiology on board -ICU monitoring -EKG with ventricular rate 34bpm--now 74 -secondary to hyperkalemia K 8.3 Code(s): R94.31 - ABNORMAL ELECTROCARDIOGRAM [ECG] [EKG]
[2019-01-13] MEDS ORDERED: HEPARIN NA (PORCINE) 5,000 UNITS/ML 1ML VIAL SQ ONE (09:30)
[2019-01-13] MEDS ORDERED: LIDOCAINE HCL 1%, 10 MG/ML (20ML VIAL) INF ONE (09:30)
[2019-01-13] MEDS ORDERED: SUCCINYLCHOLINE CHLORIDE 200 MG/10 ML SYRINGE ONE (09:31)
[2019-01-13] MEDS ORDERED: MIDAZOLAM HCL 2 MG/2 ML SINGLE DOSE VIAL ONE (09:31)
[2019-01-13] MEDS ORDERED: ceFAZolin SODIUM 1 GM VIAL ONE (09:33)
[2019-01-13] MEDS ORDERED: LIDOCAINE HCL/PF 2% SDV 5ML VIAL ONE (09:33)
[2019-01-13] MEDS ORDERED: DEXAMETHASONE SOD PHOSPHATE 4 MG/1 ML VIAL ONE (09:33)
[2019-01-13] MEDS ORDERED: SODIUM CHLORIDE 0.9% P/F 10 ML VIAL IJ ONE (09:33)
[2019-01-13] MEDS ORDERED: LABETALOL HCL 5 MG/1 ML (100MG/20 ML VIAL) ONE (09:44)
[2019-01-13] MEDS ORDERED: hydrALAZINE HCL 50 MG TABLET (FP) PO SCH (10:00)
[2019-01-13] MEDS ORDERED: HEPARIN NA (PORCINE) 5,000 UNITS/ML 1ML VIAL SQ SCH (10:00)
[2019-01-13] MEDS: CALCIUM ACETATE 667 MG CAPSULE (FP) PO SCH ×3 (10:28→17:56)
--- NOTE | 2019-01-13 11:06 | OP ---
Operative Note - Note: Operative Date: 01/13/19 Pre-Operative Diagnosis: Thrombosed AV fistula right arm Operation: Percutaneous suction thrombectomy, venoplasty AV fistula Findings: Thrombosed AV fistula, stenosis of venous outflow in forearm Post-Operative Diagnosis: Same as Pre-op Surgeon: Severo Little Anesthesiologist/SOFTWARE PRODUCT SPECIALIST: Nitin Savage Anesthesia: Fractional Estimated Blood Loss (mls): 10
[2019-01-13] MEDS ORDERED: ASPIRIN 81 MG CHEWABLE TABLETS PO SCH (11:15)
[2019-01-13] MEDS ORDERED: CARVEDILOL 6.25 MG TABLET (FP) PO SCH (11:45)
[2019-01-13] MEDS ORDERED: amLODIPine BESYLATE 10 MG TABLET (FP) PO SCH (11:45)
--- NOTE | 2019-01-13 12:14 | EKG ---
Test Reason : Blood Pressure : / mmHG Vent. Rate : 075 BPM Atrial Rate : 075 BPM P-R Int : 162 ms QRS Dur : 138 ms QT Int : 456 ms P-R-T Axes : 044 -56 034 degrees QTc Int : 509 ms SINUS RHYTHM WITH OCCASIONAL PREMATURE VENTRICULAR COMPLEXES RIGHT BUNDLE BRANCH BLOCK LEFT ANTERIOR FASCICULAR BLOCK BIFASCICULAR BLOCK MINIMAL VOLTAGE CRITERIA FOR LVH, MAY BE NORMAL VARIANT ABNORMAL ECG WHEN COMPARED WITH ECG OF 12-JAN-2019 11:11, SINUS RHYTHM HAS REPLACED IDIOVENTRICULAR RHYTHM VENT. RATE HAS INCREASED BY 41 BPM Confirmed by MICHA NOBLE MD ([id number]) on 01/13/2019 12:14:02 PM Referred By: Confirmed By:MICHA NOBLE MD
--- NOTE | 2019-01-13 12:22 | EKG ---
Test Reason : Blood Pressure : / mmHG Vent. Rate : 069 BPM Atrial Rate : 069 BPM P-R Int : 166 ms QRS Dur : 142 ms QT Int : 454 ms P-R-T Axes : 050 -55 018 degrees QTc Int : 486 ms NORMAL SINUS RHYTHM RIGHT BUNDLE BRANCH BLOCK LEFT ANTERIOR FASCICULAR BLOCK BIFASCICULAR BLOCK MINIMAL VOLTAGE CRITERIA FOR LVH, MAY BE NORMAL VARIANT ABNORMAL ECG WHEN COMPARED WITH ECG OF 12-JAN-2019 19:45, PREMATURE VENTRICULAR COMPLEXES ARE NO LONGER PRESENT Confirmed by REAL ONEILL, MICHA ([id number]) on 01/13/2019 12:22:12 PM Referred By: Confirmed By:MICHA NOBLE MD
--- NOTE | 2019-01-13 12:22 | EKG ---
Test Reason : Blood Pressure : / mmHG Vent. Rate : 034 BPM Atrial Rate : 030 BPM P-R Int : 000 ms QRS Dur : 172 ms QT Int : 508 ms P-R-T Axes : 000 -61 007 degrees QTc Int : 381 ms IDIOVENTRICULAR RHYTHM RIGHT BUNDLE BRANCH BLOCK LEFT ANTERIOR FASCICULAR BLOCK BIFASCICULAR BLOCK MINIMAL VOLTAGE CRITERIA FOR LVH, MAY BE NORMAL VARIANT ABNORMAL ECG WHEN COMPARED WITH ECG OF 10-SEP-2016 13:26, IDIOVENTRICULAR RHYTHM HAS REPLACED SINUS RHYTHM VENT. RATE HAS DECREASED BY 47 BPM Confirmed by MICHA NOBLE MD ([id number]) on 01/13/2019 12:22:05 PM Referred By: Confirmed By:MICHA NOBLE MD
[2019-01-13] MEDS ORDERED: ONDANSETRON 4 MG/2 ML VIAL IVPUSH ONE (12:30)
[2019-01-13] MEDS: LABETALOL HCL 100 MG TABLET (FP) PO SCH ×2 (12:33→16:21)
--- NOTE | 2019-01-13 12:42 | PN ---
Teaching Attending Note Name of Resident: Ranjit Liu ATTENDING PHYSICIAN STATEMENT I saw and evaluated the patient. I reviewed the resident's note and discussed the case with the resident. I agree with the resident's findings and plan as documented. SUBJECTIVE: Pt seen and examined in the ICU. s/p thrombectomy/venoplasty of AVF. Denies shortness of breath or chest pain. OBJECTIVE: Vital Signs Period Temp Pulse Resp BP Sys/Sandoval Pulse Ox Last 24 Hr 97.8 F-98.4 F 35-81 12-20 136-200/8-97 92-98 Intake & Output 01/10/19 01/11/19 01/12/19 01/13/19 23:59 23:59 23:59 23:59 Intake Total 1150 250 Output Total 1500 10 Balance -350 240 Weight 113 kg 112.973 kg Gen: NAD at rest Heart: RRR Lung: decreased breath sounds at the bases Abd: soft, nontender Ext: no edema CBC, BMP 01/13/19 05:50 01/13/19 05:50 Active Medications Amlodipine Besylate (Norvasc -) 10 mg PO BID [facility] Last Admin: 01/13/19 12:33 Dose: 10 mg Aspirin (Asa -) 81 mg PO DAILY [facility] Last Admin: 01/13/19 12:34 Dose: 81 mg Calcium Acetate (Phoslo -) 667 mg PO TIDCM [facility] Last Admin: 01/13/19 10:28 Dose: Not Given Carvedilol (Coreg -) 6.25 mg PO BID [facility] Last Admin: 01/13/19 12:33 Dose: 6.25 mg Chlorhexidine Gluconate (Hibiclens For Decolonization -) 1 applic TP HS [facility] Last Admin: 01/12/19 21:40 Dose: 1 applic Furosemide (Lasix -) 40 mg PO BID@0600,1400 [facility] Last Admin: 01/13/19 06:06 Dose: 40 mg Heparin Sodium (Porcine) (Heparin -) 5,000 unit SQ BID [facility] Hydralazine HCl (Apresoline -) 25 mg PO TID [facility] Sodium Chloride (Normal Saline -) 250 mls @ 3,000 mls/hr IV PRN PRN PRN Reason: Hypotension during Dialysis Stop: 01/13/19 15:00 Sodium Chloride (Normal Saline -) 250 mls @ 3,000 mls/hr IV PRN PRN PRN Reason: Hypotension during Dialysis Stop: 01/13/19 15:01 Insulin Aspart (Novolog Vial Sliding Scale -) 1 vial SQ ACHS [facility]; Protocol Last Admin: 01/13/19 12:26 Dose: Not Given Insulin Detemir (Levemir Vial) 30 units SQ HS [facility] Insulin Detemir (Levemir Vial) 10 units SQ 0700 [facility] Last Admin: 01/13/19 10:28 Dose: Not Given Labetalol HCl (Normodyne -) 300 mg PO TID [facility] Last Admin: 01/13/19 12:33 Dose: 300 mg Mupirocin (Bactroban Ointment (For Decolonization) -) 1 applic NS BID [facility] Stop: 01/18/19 21:59 ASSESSMENT AND PLAN: Clotted AVF s/p thrombectomy/venoplasty POD #0 Severe Hyperkalemia s/p emergent HD Bradycardia resolved ESRD on HD HTN DM Hyperlipidemia Anemia - HD per renal - monitor lytes - BP control - PO as tolerated - DVT prophylaxis - can monitor on floor
--- NOTE | 2019-01-13 13:01 | PN ---
Physical Exam: SUBJECTIVE: Patient seen and examined. No active issues overnight. Denies lightheadedness, SOB, chest pain. No fistula bleeding noted. Sprained R ankle recently causing abrasions OBJECTIVE: Vital Signs Period Temp Pulse Resp BP Sys/Sandoval Pulse Ox Last 24 Hr 97.8 F-98.4 F 35-81 12-20 136-200/8-97 92-98 GENERAL: The patient is awake, alert, and fully oriented, in no acute distress. LUNGS: Breath sounds equal, clear to auscultation bilaterally, no wheezes, no crackles, no accessory muscle use. HEART: Regular rate and rhythm, S1, S2 without murmur, rub or gallop. ABDOMEN: Soft, nontender, nondistended, normoactive bowel sounds, no guarding, no rebound, no hepatosplenomegaly, no masses. EXTREMITIES: warm, well-perfused, no edema. R ankle abrasions NEUROLOGICAL: AOx3. Normal speech. Full sensation/strength/ROM BLE Laboratory Results - last 24 hr 01/12/19 01/12/19 01/12/19 12:30 14:30 15:30 WBC RBC Hgb Hct MCV MCH MCHC RDW Plt Count MPV Absolute Neuts (auto) Neutrophils % Lymphocytes % Monocytes % Eosinophils % Basophils % Nucleated RBC % Sodium 134 L Potassium 8.3 H* Chloride 103 Carbon Dioxide 23 Anion Gap 8 BUN 82.5 H Creatinine 14.8 H* Est GFR (CKD-EPI)AfAm 3.66 Est GFR (CKD-EPI)NonAf 3.16 POC Glucometer Random Glucose 148 H Hemoglobin A1c % Calcium 8.5 Phosphorus Magnesium Total Bilirubin 0.4 AST 16 ALT 16 Alkaline Phosphatase 80 Creatine Kinase Creatine Kinase Index CK-MB (CK-2) Troponin I Total Protein 7.4 Albumin 4.0 Triglycerides Cholesterol Total LDL Cholesterol HDL Cholesterol Hep C Ab Diagnostic Cancelled Hepatitis C RNA Cancelled HCV RNA PCR log animal cop/ml Cancelled HCV RNA (PCR) IUs/ml Cancelled HCV RNA PCR w/Genot Rflx Cancelled Liver Fibrosis Interp Cancelled Blood Type O POSITIVE 01/12/19 01/12/19 01/12/19 18:49 18:58 21:51 WBC RBC Hgb Hct MCV MCH MCHC RDW Plt Count MPV Absolute Neuts (auto) Neutrophils % Lymphocytes % Monocytes % Eosinophils % Basophils % Nucleated RBC % Sodium 139 Potassium 3.5 Chloride 100 Carbon Dioxide 31 Anion Gap 8 BUN 30.2 H Creatinine 5.9 H Est GFR (CKD-EPI)AfAm 11.12 Est GFR (CKD-EPI)NonAf 9.59 POC Glucometer 113 188 Random Glucose 129 H Hemoglobin A1c % Calcium 8.4 L Phosphorus Magnesium Total Bilirubin AST ALT Alkaline Phosphatase Creatine Kinase Creatine Kinase Index CK-MB (CK-2) Troponin I Total Protein Albumin Triglycerides Cholesterol Total LDL Cholesterol HDL Cholesterol Hep C Ab Diagnostic Hepatitis C RNA HCV RNA PCR log animal cop/ml HCV RNA (PCR) IUs/ml HCV RNA PCR w/Genot Rflx Liver Fibrosis Inter Blood Type 01/13/19 01/13/19 01/13/19 05:50 05:50 05:50 WBC 5.1 RBC 3.57 L Hgb 11.4 L Hct 33.4 L MCV 93.5 MCH 31.9 MCHC 34.1 RDW 15.1 Plt Count 113 L D MPV 8.3 Absolute Neuts (auto) 4.1 Neutrophils % 80.4 Lymphocytes % 13.5 Monocytes % 4.7 Eosinophils % 0.9 Basophils % 0.5 Nucleated RBC % 0 Sodium 136 Potassium 5.1 Chloride 99 Carbon Dioxide 29 Anion Gap 8 BUN 47.5 H Creatinine 10.8 H* Est GFR (CKD-EPI)AfAm 5.35 Est GFR (CKD-EPI)NonAf 4.62 POC Glucometer Random Glucose 395 H Hemoglobin A1c % 9.2 H Calcium 7.7 L Phosphorus 6.5 H Magnesium 1.7 L Total Bilirubin 0.4 AST 13 L ALT 15 Alkaline Phosphatase 93 Creatine Kinase 211 Creatine Kinase Index 1.4 CK-MB (CK-2) 3.1 Troponin I 0.04 Total Protein 6.2 L Albumin 3.1 L Triglycerides 168 H Cholesterol 164 Total LDL Cholesterol 103 H HDL Cholesterol 31 L Hep C Ab Diagnostic Hepatitis C RNA HCV RNA PCR log animal cop/ml HCV RNA (PCR) IUs/ml HCV RNA PCR w/Genot Rflx Liver Fibrosis [facility] Blood Type 01/13/19 01/13/19 01/13/19 05:58 09:05 09:46 WBC RBC Hgb Hct MCV MCH MCHC RDW Plt Count MPV Absolute Neuts (auto) Neutrophils % Lymphocytes % Monocytes % Eosinophils % Basophils % Nucleated RBC % Sodium Potassium Chloride Carbon Dioxide Anion Gap BUN Creatinine Est GFR (CKD-EPI)AfAm Est GFR (CKD-EPI)NonAf POC Glucometer 390 76 93 Random Glucose Hemoglobin A1c % Calcium Phosphorus Magnesium Total Bilirubin AST ALT Alkaline Phosphatase Creatine Kinase Creatine Kinase Index CK-MB (CK-2) Troponin I Total Protein Albumin Triglycerides Cholesterol Total LDL Cholesterol HDL Cholesterol Hep C Ab Diagnostic Hepatitis C RNA HCV RNA PCR log animal cop/ml HCV RNA (PCR) IUs/ml HCV RNA PCR w/Genot Rflx Liver Fibrosis Interp Blood Type 01/13/19 12:24 WBC RBC Hgb Hct MCV MCH MCHC RDW Plt Count MPV Absolute Neuts (auto) Neutrophils % Lymphocytes % Monocytes % Eosinophils % Basophils % Nucleated RBC % Sodium Potassium Chloride Carbon Dioxide Anion Gap BUN Creatinine Est GFR (CKD-EPI)AfAm Est GFR (CKD-EPI)NonAf POC Glucometer 130 Random Glucose Hemoglobin A1c % Calcium Phosphorus Magnesium Total Bilirubin AST ALT Alkaline Phosphatase Creatine Kinase Creatine Kinase Index CK-MB (CK-2) Troponin I Total Protein Albumin Triglycerides Cholesterol Total LDL Cholesterol HDL Cholesterol Hep C Ab Diagnostic Hepatitis C RNA HCV RNA PCR log animal cop/ml HCV RNA (PCR) IUs/ml HCV RNA PCR w/Genot Rflx Liver Fibrosis Interp Blood Type Active Medications Generic Name Dose Route Start Last Admin Trade Name Freq PRN Reason Stop Dose Admin Amlodipine Besylate 10 mg 01/13/19 11:45 01/13/19 12:33 Norvasc - PO 10 mg BID [facility] Administration Aspirin 81 mg 01/13/19 11:15 01/13/19 12:34 Asa - PO 81 mg DAILY [facility] Administration Calcium Acetate 667 mg 01/13/19 08:00 01/13/19 10:28 Phoslo - PO Not Given TIDCM [facility] Carvedilol 6.25 mg 01/13/19 11:45 01/13/19 12:33 Coreg - PO 6.25 mg BID [facility] Administration Chlorhexidine Gluconate 1 applic 01/12/19 22:00 01/12/19 21:40 Hibiclens For Decolonization - TP 1 applic HS [facility] Administration Furosemide 40 mg 01/13/19 06:00 01/13/19 06:06 Lasix - PO 40 mg BID@0600,1400 [facility] Administration Heparin Sodium (Porcine) 5,000 unit 01/13/19 10:00 Heparin - SQ BID [facility] Hydralazine HCl 25 mg 01/13/19 14:00 Apresoline - PO TID [facility] Sodium Chloride 250 mls @ 3,000 mls/hr 01/12/19 15:00 Normal Saline - IV 01/13/19 15:00 PRN PRN Hypotension during Dialysis Sodium Chloride 250 mls @ 3,000 mls/hr 01/12/19 15:01 Normal Saline - IV 01/13/19 15:01 PRN PRN Hypotension during Dialysis Insulin Aspart 1 vial 01/12/19 16:30 01/13/19 12:26 Novolog Vial Sliding Scale - SQ Not Given ACHS [facility] Protocol Insulin Detemir 30 units 01/13/19 22:00 Levemir Vial SQ HS [facility] Insulin Detemir 10 units 01/13/19 07:00 01/13/19 10:28 Levemir Vial SQ Not Given 0700 [facility] Labetalol HCl 300 mg 01/13/19 11:39 01/13/19 12:33 Normodyne - PO 300 mg TID [facility] Administration Mupirocin 1 applic 01/13/19 22:00 Bactroban Ointment (For Decolonization) - NS 01/18/19 21:59 BID [facility] ASSESSMENT/PLAN: 58 y/o/m with PMHx of HTN, DM, HLD, ESRD on HD with last treatment on 01/09 who presented for a clotted right sided AV fistula. Admitted for bradycardia and hyperkalemia requiring urgent dialysis. #Neuro - AOx3, no active issues #Cardio - hx HTN, HLD - EKG showed likely ventricular escape rhythm at 34 bpm - Bradycardia likely due to Hyperkalemia vs Beta Stanislaw use, resolved - Hyperkalemia at 8.3, corrected w Ca gluconate, bicarb, HD - restarted home Norvasc,Coreg, Lasix, hydralazine, ASA - holding labetalol d/t bradycardia - DVT ppx - Cardio on board #Resp - breathing RA, O2sat wnl #Renal - ESRD, clotted R AV fistula - AV fistula thrombectomy done today - short HD session today before discharge as potassium is still 5.1 - take out Shiley catheter after dialysis before d/c, hold pressure 15min ( placed 01/12) - Hep B and C tests pending - hyperPhos - started Ca acetate - I/O - Nephro on board #GI - renal diet #Heme - anemia, thrombocytopenia - Hgb 12.2 to 11.4 - plt 167 to 113 - trend H&H #Endo - Hx of DM - ISS, levemir #ID - afebrile, WBC wnl #Prophylaxis - Heparin - no GI ppx #FEN - no fluids - hyperPhos, hypoMg - renal diet #Dispo - d/c home from ICU Visit type - Emergency Visit Emergency Visit: Yes ED Registration Date: 01/12/19 Care time: The patient presented to the Emergency Department on the above date and was hospitalized for further evaluation of their emergent condition. - New Patient This patient is new to me today: Yes Date on this admission: 01/13/19 - Critical Care Critical Care patient: Yes Total Critical Care Time (in minutes): 39 Critical Care Statement: The care of this patient involved high complexity decision making to prevent further life threatening deterioration of the patient 's condition and/or to evaluate & treat vital organ system(s) failure or risk of failure. ATTENDING PHYSICIAN STATEMENT I saw and evaluated the patient. I reviewed the resident's note and discussed the case with the resident. I agree with the resident's findings and plan as documented. SUBJECTIVE: OBJECTIVE: ASSESSMENT AND PLAN:
[2019-01-13] MEDS ORDERED: MAGNESIUM SULF 50% (8.12 MEQ/2 ML-1 GM VIAL) IVPB ONE (13:23)
--- NOTE | 2019-01-13 13:25 | PN ---
Progress Note, Physician History of Present Illness: Pt seen and examined at bedside. He is awake and alert. He had the thrombectomy done today. - Current Medication List Current Medications: Active Medications Amlodipine Besylate (Norvasc -) 10 mg PO BID [facility] Last Admin: 01/13/19 12:33 Dose: 10 mg Aspirin (Asa -) 81 mg PO DAILY [facility] Last Admin: 01/13/19 12:34 Dose: 81 mg Calcium Acetate (Phoslo -) 667 mg PO TIDCM [facility] Last Admin: 01/13/19 10:28 Dose: Not Given Carvedilol (Coreg -) 6.25 mg PO BID [facility] Last Admin: 01/13/19 12:33 Dose: 6.25 mg Chlorhexidine Gluconate (Hibiclens For Decolonization -) 1 applic TP HS [facility] Last Admin: 01/12/19 21:40 Dose: 1 applic Furosemide (Lasix -) 40 mg PO BID@0600,1400 [facility] Last Admin: 01/13/19 06:06 Dose: 40 mg Heparin Sodium (Porcine) (Heparin -) 5,000 unit SQ BID [facility] Hydralazine HCl (Apresoline -) 25 mg PO TID [facility] Sodium Chloride (Normal Saline -) 250 mls @ 3,000 mls/hr IV PRN PRN PRN Reason: Hypotension during Dialysis Stop: 01/13/19 15:00 Sodium Chloride (Normal Saline -) 250 mls @ 3,000 mls/hr IV PRN PRN PRN Reason: Hypotension during Dialysis Stop: 01/13/19 15:01 Sodium Chloride (Normal Saline -) 250 mls @ 3,000 mls/hr IV PRN PRN PRN Reason: Hypotension during Dialysis Stop: 01/14/19 13:20 Insulin Aspart (Novolog Vial Sliding Scale -) 1 vial SQ ACHS [facility]; Protocol Last Admin: 01/13/19 12:26 Dose: Not Given Insulin Detemir (Levemir Vial) 30 units SQ HS [facility] Insulin Detemir (Levemir Vial) 10 units SQ 0700 [facility] Last Admin: 01/13/19 10:28 Dose: Not Given Labetalol HCl (Normodyne -) 300 mg PO TID [facility] Last Admin: 01/13/19 12:33 Dose: 300 mg Mupirocin (Bactroban Ointment (For Decolonization) -) 1 applic NS BID [facility] Stop: 01/18/19 21:59 - Objective Vital Signs: Vital Signs Temperature 98.0 F 01/13/19 11:55 Pulse Rate 72 01/13/19 12:00 Respiratory Rate 18 01/13/19 12:00 Blood Pressure 193/8 H 01/13/19 12:00 O2 Sat by Pulse Oximetry (%) 96 01/13/19 11:55 Constitutional: Yes: Calm Eyes: Yes: Conjunctiva Clear HENT: Yes: Atraumatic Neck: Yes: Supple Cardiovascular: Yes: S1, S2 Respiratory: Yes: CTA Bilaterally Gastrointestinal: Yes: Soft Genitourinary: Yes: WNL Musculoskeletal: Yes: WNL Edema: Yes Edema: LLE: 1+, RLE: 1+ Neurological: Yes: Oriented Psychiatric: Yes: Oriented Labs: CBC, BMP 01/13/19 05:50 01/13/19 05:50 INR, PTT INR 1.07 (0.83-1.09) 01/12/19 11:33 Problem List - Problems (1) Hyperkalemia Code(s): E87.5 - HYPERKALEMIA (2) Abnormal EKG Code(s): R94.31 - ABNORMAL ELECTROCARDIOGRAM [ECG] [EKG] (3) Diabetes mellitus Code(s): E11.9 - TYPE 2 DIABETES MELLITUS WITHOUT COMPLICATIONS (4) ESRD on hemodialysis Code(s): N18.6 - END STAGE RENAL DISEASE; Z99.2 - DEPENDENCE ON RENAL DIALYSIS (5) HTN (hypertension) Code(s): I10 - ESSENTIAL (PRIMARY) HYPERTENSION (6) Thrombosis of arteriovenous fistula Code(s): T82.868A - THROMBOSIS DUE TO VASCULAR PROSTH DEV/GRFT, INIT Qualifiers: Qualified Code(s): T82.868A - Thrombosis due to vascular prosthetic devices, implants and grafts, initial encounter Assessment/Plan Current Medications Generic Name Dose Route Start Last Admin Trade Name Freq PRN Reason Stop Dose Admin Amlodipine Besylate 10 mg 01/13/19 11:45 01/13/19 12:33 Norvasc - PO 10 mg BID [facility] Administration Aspirin 81 mg 01/13/19 11:15 01/13/19 12:34 Asa - PO 81 mg DAILY [facility] Administration Calcium Acetate 667 mg 01/13/19 08:00 01/13/19 10:28 Phoslo - PO Not Given TIDCM [facility] Carvedilol 6.25 mg 01/13/19 11:45 01/13/19 12:33 Coreg - PO 6.25 mg BID [facility] Administration Chlorhexidine Gluconate 1 applic 01/12/19 22:00 01/12/19 21:40 Hibiclens For Decolonization - TP 1 applic HS [facility] Administration Furosemide 40 mg 01/13/19 06:00 01/13/19 06:06 Lasix - PO 40 mg BID@0600,1400 [facility] Administration Heparin Sodium (Porcine) 5,000 unit 01/13/19 10:00 Heparin - SQ BID [facility] Hydralazine HCl 25 mg 01/13/19 14:00 Apresoline - PO TID [facility] Sodium Chloride 250 mls @ 3,000 mls/hr 01/12/19 15:00 Normal Saline - IV 01/13/19 15:00 PRN PRN Hypotension during Dialysis Sodium Chloride 250 mls @ 3,000 mls/hr 01/12/19 15:01 Normal Saline - IV 01/13/19 15:01 PRN PRN Hypotension during Dialysis Sodium Chloride 250 mls @ 3,000 mls/hr 01/13/19 13:19 Normal Saline - IV 01/14/19 13:20 PRN PRN Hypotension during Dialysis Insulin Aspart 1 vial 01/12/19 16:30 01/13/19 12:26 Novolog Vial Sliding Scale - SQ Not Given ACHS [facility] Protocol Insulin Detemir 30 units 01/13/19 22:00 Levemir Vial SQ [facility] Insulin Detemir 10 units 01/13/19 07:00 01/13/19 10:28 Levemir Vial SQ Not Given 0700 [facility] Labetalol HCl 300 mg 01/13/19 11:39 01/13/19 12:33 Normodyne - PO 300 mg TID [facility] Administration Mupirocin 1 applic 01/13/19 22:00 Bactroban Ointment (For Decolonization) - NS 01/18/19 21:59 BID [facility] Impression 1. ESRD 2. hyperkalemia 3. arrythmia 4. htn 5. dm 6. hld 7. clotted av fistula Plan - will arrange for a short HD session today before discharge as potassium is still 5.1 - will use shiley then it can be taken out - pulse is improved - pt regularly on TTS schedule - spoke to vascular, will use fistula tomorrow
[2019-01-13] MEDS ORDERED: hydrALAZINE HCL 25 MG TABLET (FP) PO SCH (14:00)
--- NOTE | 2019-01-13 14:26 | PN ---
Progress Note, Physician Chief Complaint: fatigue. History of Present Illness: 58 year old man with a pmh HTN, DMII, HLD, ESRD on HD last 01/09, sent to ER by vascular for clotted R AV fistula, planned for declotting, noted to be bradycardic with EKG showing likely ventricular escape rhythm at 34bpm. pt seen and examined in the ER. Pt angry and not cooperative with history or exam. pt states he has no heart problem. states he is always bradycardic and that his potassium level is always high. denies chest pain, sob, palpitations, pnd, orthopnea or LE edema. chemistry panel is not back yet as first sample clotted. he patient underwent emergent dialysis.He is in sinus rhythm. No heart block. He is quite comfortable. - Current Medication List Current Medications: Active Medications Amlodipine Besylate (Norvasc -) 10 mg PO BID [facility] Last Admin: 01/13/19 12:33 Dose: 10 mg Aspirin (Asa -) 81 mg PO DAILY [facility] Last Admin: 01/13/19 12:34 Dose: 81 mg Calcium Acetate (Phoslo -) 667 mg PO TIDCM [facility] Last Admin: 01/13/19 13:28 Dose: 667 mg Carvedilol (Coreg -) 6.25 mg PO BID [facility] Last Admin: 01/13/19 12:33 Dose: 6.25 mg Chlorhexidine Gluconate (Hibiclens For Decolonization -) 1 applic TP HS [facility] Last Admin: 01/12/19 21:40 Dose: 1 applic Furosemide (Lasix -) 40 mg PO BID@0600,1400 [facility] Last Admin: 01/13/19 06:06 Dose: 40 mg Heparin Sodium (Porcine) (Heparin -) 5,000 unit SQ BID [facility] Hydralazine HCl (Apresoline -) 25 mg PO TID [facility] Sodium Chloride (Normal Saline -) 250 mls @ 3,000 mls/hr IV PRN PRN PRN Reason: Hypotension during Dialysis Stop: 01/13/19 15:00 Sodium Chloride (Normal Saline -) 250 mls @ 3,000 mls/hr IV PRN PRN PRN Reason: Hypotension during Dialysis Stop: 01/13/19 15:01 Sodium Chloride (Normal Saline -) 250 mls @ 3,000 mls/hr IV PRN PRN PRN Reason: Hypotension during Dialysis Stop: 01/14/19 13:20 Insulin Aspart (Novolog Vial Sliding Scale -) 1 vial SQ ACHS [facility]; Protocol Last Admin: 01/13/19 12:26 Dose: Not Given Insulin Detemir (Levemir Vial) 30 units SQ HS [facility] Insulin Detemir (Levemir Vial) 10 units SQ 0700 [facility] Last Admin: 01/13/19 10:28 Dose: Not Given Labetalol HCl (Normodyne -) 300 mg PO TID [facility] Last Admin: 01/13/19 12:33 Dose: 300 mg Mupirocin (Bactroban Ointment (For Decolonization) -) 1 applic NS BID [facility] Stop: 01/18/19 21:59 - Objective Vital Signs: Vital Signs Temperature 98 F 01/13/19 14:00 Pulse Rate 74 01/13/19 14:00 Respiratory Rate 18 01/13/19 14:00 Blood Pressure 183/78 H 01/13/19 14:00 O2 Sat by Pulse Oximetry (%) 96 01/13/19 11:55 Constitutional: Yes: No Distress, Calm, Obese, Pallor Eyes: Yes: Conjunctiva Clear, EOM Intact HENT: Yes: WNL, Atraumatic, Normocephalic Neck: Yes: WNL, Supple, Trachea Midline Cardiovascular: Yes: WNL, Regular Rate and Rhythm, Pulse Irregular Respiratory: Yes: Regular, Rales, Rhonchi Gastrointestinal: Yes: WNL, Normal Bowel Sounds, Soft ...Rectal Exam: Yes: Deferred Musculoskeletal: Yes: WNL Extremities: Yes: WNL Edema: LLE: Trace, RLE: Trace Peripheral Pulses: Left Radial: 1+, Right Radial: 1+, Left Doralis Pedis: 1+, Right Dorsalis Pedis: 1+, Left Femoral: 1+, Right Femoral: 1+ Neurological: Yes: WNL, Alert, Oriented Labs: CBC, BMP 01/13/19 05:50 01/13/19 05:50 INR, PTT INR 1.07 (0.83-1.09) 01/12/19 11:33 Assessment/Plan 58 year old man with a pmh HTN, DMII, HLD, ESRD on HD last 01/09, sent to ER by vascular for clotted R AV fistula, planned for declotting, noted to be bradycardic with EKG showing likely ventricular escape rhythm at 34bpm. pt seen and examined in the ER. Pt angry and not cooperative with history or exam. pt states he has no heart problem. states he is always bradycardic and that his potassium level is always high. denies chest pain, sob, palpitations, pnd, orthopnea or LE edema. chemistry panel is not back yet as first sample clotted. he patient underwent emergent dialysis.He is in sinus rhythm. No heart block. He is quite comfortable. please continue fluid removal with dialysis. Try to keep the potassium around 4.0. stop labetalol. continue Coreg. Continue the other medications as currently. no need for further cardiac workup at this point. no need for cardiac pacing. Please do not hesitate to call us PRN.
[2019-01-13] MEDS ORDERED: SODIUM CHLORIDE 250 ML IV PRN (15:14)
[2019-01-13 16:12] VITALS: TEMP 98.4
--- NOTE | 2019-01-13 19:40 | CONSULT ---
Consult Consult Specialty:: endocrine Referred by:: dr.[email or web address] yadav Reason for Consultation:: dmt2 - History of Present Illness Chief Complaint: here for av shunt History of Present Illness: 58 y/o male with past medical history of ESRD on HD, DM T2, HTN. Patient presented to [facility] from HD Center where they were unable to access R forearm fistula. Patient was unable to have HD done due to clotted fistula. Patient underwent vascular procedure for fistula thrombectomy.post op awake and asking to go home,denies cp sob cough or fever - Past Medical History Cardio/Vascular: Yes: HTN Pulmonary: Yes: COPD Renal/: Yes: Renal Failure, Renal Inusuff, Hemodialysis Endocrine: Yes: Diabetes Mellitus - Alcohol/Substance Use Hx Alcohol Use: No - Smoking History Smoking history: Former smoker Have you smoked in the past 12 months: No If you are a former smoker, when did you quit?: 2009 - Social History ADL: Independent Home Medications - Allergies Allergies/Adverse Reactions: Allergies Allergy/AdvReac Type Severity Reaction Status Date / Time No Known Allergies Allergy Verified 01/12/19 10:43 - Home Medications Home Medications: Ambulatory Orders Albuterol Sulfate Inhaler - [Ventolin HFA Inhaler -] 1 puff DAILY 09/06/16 Amlodipine Besylate 10 mg PO BID 09/06/16 Atorvastatin Ca [Lipitor] 20 mg PO DAILY 09/06/16 Calcium Acetate 667 mg PO DAILY 09/06/16 Cholecalciferol (Vitamin D3) [Vitamin D3] 5,000 unit PO DAILY 09/06/16 Fluticasone/Vilanterol [Breo Ellipta 100-25 Mcg INH] 1 each IH DAILY 09/06/16 Furosemide [Lasix] 40 mg PO BID 09/06/16 Hydralazine HCl 25 mg PO TID 09/06/16 Insulin (Levemir) [Levemir Flexpen -] 20 units SQ DAILY 09/06/16 Carvedilol [Coreg] 6.25 mg PO BID 01/13/19 Labetalol HCl [Normodyne -] 300 mg PO TID 01/13/19 Review of Systems - Review of Systems Constitutional: reports: No Symptoms Eyes: reports: No Symptoms HENT: reports: No Symptoms Neck: reports: No Symptoms Cardiovascular: reports: No Symptoms Respiratory: reports: No Symptoms Gastrointestinal: reports: No Symptoms Breasts: reports: No Symptoms Reported Musculoskeletal: reports: No Symptoms Neurological: reports: No Symptoms Physical Exam Vital Signs: Vital Signs Temperature 98.4 F 01/13/19 16:00 Pulse Rate 74 01/13/19 18:00 Respiratory Rate 20 01/13/19 18:00 Blood Pressure 155/71 01/13/19 18:00 O2 Sat by Pulse Oximetry (%) 96 01/13/19 11:55 Constitutional: Yes: Calm Eyes: Yes: EOM Intact HENT: Yes: Normocephalic Neck: Yes: Trachea Midline Cardiovascular: Yes: Regular Rate and Rhythm Respiratory: Yes: Regular Gastrointestinal: Yes: WNL ...Rectal Exam: Yes: Deferred Extremities: Yes: WNL Edema: No Labs: CBC, BMP 01/13/19 05:50 01/13/19 05:50 Assessment/Plan Current Active Problems Abnormal EKG (Acute) Diabetes mellitus (Acute) ESRD on hemodialysis (Acute) HTN (hypertension) (Acute) Hyperkalemia (Acute) Thrombosis of arteriovenous fistula (Acute) Abnormal Lab Results 01/12/19 01/13/19 01/13/19 18:58 05:50 05:50 RBC 3.57 L Hgb 11.4 L Hct 33.4 L Plt Count 113 L D BUN 30.2 H 47.5 H Creatinine 5.9 H 10.8 H* Random Glucose 129 H 395 H Hemoglobin A1c % Calcium 8.4 L 7.7 L Phosphorus 6.5 H Magnesium 1.7 L AST 13 L Total Protein 6.2 L Albumin 3.1 L Triglycerides 168 H Total LDL Cholesterol 103 H HDL Cholesterol 31 L 01/13/19 05:50 RBC Hgb Hct Plt Count BUN Creatinine Random Glucose Hemoglobin A1c % 9.2 H Calcium Phosphorus Magnesium AST Total Protein Albumin Triglycerides Total LDL Cholesterol HDL Cholesterol plan: patient unwilling to accept advice for diabetic management wants pmd to control his dm
--- NOTE | 2019-01-13 20:20 | DS ---
Physical Examination Vital Signs: Vital Signs Temperature 98.4 F 01/13/19 16:00 Pulse Rate 74 01/13/19 18:00 Respiratory Rate 20 01/13/19 18:00 Blood Pressure 155/71 01/13/19 18:00 O2 Sat by Pulse Oximetry (%) 94 L 01/13/19 20:06 Findings/Remarks: Laboratory Results - last 24 hr 01/12/19 01/13/19 01/13/19 21:51 05:50 05:50 WBC 5.1 RBC 3.57 L Hgb 11.4 L Hct 33.4 L MCV 93.5 MCH 31.9 MCHC 34.1 RDW 15.1 Plt Count 113 L D MPV 8.3 Absolute Neuts (auto) 4.1 Neutrophils % 80.4 Lymphocytes % 13.5 Monocytes % 4.7 Eosinophils % 0.9 Basophils % 0.5 Nucleated RBC % 0 Sodium 136 Potassium 5.1 Chloride 99 Carbon Dioxide 29 Anion Gap 8 BUN 47.5 H Creatinine 10.8 H* Est GFR (CKD-EPI)AfAm 5.35 Est GFR (CKD-EPI)NonAf 4.62 POC Glucometer 188 Random Glucose 395 H Hemoglobin A1c % Calcium 7.7 L Phosphorus 6.5 H Magnesium 1.7 L Total Bilirubin 0.4 AST 13 L ALT 15 Alkaline Phosphatase 93 Creatine Kinase 211 Creatine Kinase Index 1.4 CK-MB (CK-2) 3.1 Troponin I 0.04 Total Protein 6.2 L Albumin 3.1 L Triglycerides 168 H Cholesterol 164 Total LDL Cholesterol 103 H HDL Cholesterol 31 L 01/13/19 01/13/19 01/13/19 05:50 05:58 09:05 WBC RBC Hgb Hct MCV MCH MCHC RDW Plt Count MPV Absolute Neuts (auto) Neutrophils % Lymphocytes % Monocytes % Eosinophils % Basophils % Nucleated RBC % Sodium Potassium Chloride Carbon Dioxide Anion Gap BUN Creatinine Est GFR (CKD-EPI)AfAm Est GFR (CKD-EPI)NonAf POC Glucometer 390 76 Random Glucose Hemoglobin A1c % 9.2 H Calcium Phosphorus Magnesium Total Bilirubin AST ALT Alkaline Phosphatase Creatine Kinase Creatine Kinase Index CK-MB (CK-2) Troponin I Total Protein Albumin Triglycerides Cholesterol Total LDL Cholesterol HDL Cholesterol 01/13/19 01/13/19 01/13/19 09:46 12:24 16:43 WBC RBC Hgb Hct MCV MCH MCHC RDW Plt Count MPV Absolute Neuts (auto) Neutrophils % Lymphocytes % Monocytes % Eosinophils % Basophils % Nucleated RBC % Sodium Potassium Chloride Carbon Dioxide Anion Gap BUN Creatinine Est GFR (CKD-EPI)AfAm Est GFR (CKD-EPI)NonAf POC Glucometer 93 130 180 Random Glucose Hemoglobin A1c % Calcium Phosphorus Magnesium Total Bilirubin AST ALT Alkaline Phosphatase Creatine Kinase Creatine Kinase Index CK-MB (CK-2) Troponin I Total Protein Albumin Triglycerides Cholesterol Total LDL Cholesterol HDL Cholesterol Active Medications Generic Name Dose Route Start Last Admin Trade Name Freq PRN Reason Stop Dose Admin Amlodipine Besylate 10 mg 01/13/19 11:45 01/13/19 12:33 Norvasc - PO 10 mg BID [facility] Administration Aspirin 81 mg 01/13/19 11:15 01/13/19 12:34 Asa - PO 81 mg DAILY [facility] Administration Calcium Acetate 667 mg 01/13/19 08:00 01/13/19 17:56 Phoslo - PO 667 mg TIDCM [facility] Administration Carvedilol 6.25 mg 01/13/19 11:45 01/13/19 12:33 Coreg - PO 6.25 mg BID [facility] Administration Chlorhexidine Gluconate 1 applic 01/12/19 22:00 01/12/19 21:40 Hibiclens For Decolonization - TP 1 applic HS [facility] Administration Furosemide 40 mg 01/13/19 06:00 01/13/19 14:23 Lasix - PO 40 mg BID@0600,1400 [facility] Administration Heparin Sodium (Porcine) 5,000 unit 01/13/19 10:00 Heparin - SQ BID [facility] Hydralazine HCl 25 mg 01/13/19 14:00 01/13/19 14:23 Apresoline - PO 25 mg TID [facility] Administration Sodium Chloride 250 mls @ 3,000 mls/hr 01/13/19 15:14 Normal Saline - IV 01/13/19 22:00 PRN PRN Hypotension during Dialysis Insulin Aspart 1 vial 01/12/19 16:30 01/13/19 16:44 Novolog Vial Sliding Scale - SQ Not Given ACHS [facility] Protocol Insulin Detemir 30 units 01/13/19 22:00 Levemir Vial SQ HS [facility] Insulin Detemir 10 units 01/13/19 07:00 01/13/19 10:28 Levemir Vial SQ Not Given 0700 [facility] Mupirocin 1 applic 01/13/19 22:00 Bactroban Ointment (For Decolonization) - NS 01/18/19 21:59 BID [facility] Labs: CBC, BMP 01/13/19 05:50 01/13/19 05:50 Discharge Summary Problems reviewed: Yes Reason For Visit: THROMBOSIS OF ARTERIOVENOUS Current Active Problems Abnormal EKG (Acute) Diabetes mellitus (Acute) ESRD on hemodialysis (Acute) HTN (hypertension) (Acute) Hyperkalemia (Acute) Thrombosis of arteriovenous fistula (Acute) Hospital Course: Patient is a 58 y/o male with past medical history of ESRD on HD, DM, HTN. Patient presented to [facility] from [facility] where they were unable to access R forearm fistula. Patient was unable to have HD done due to clotted fistula. Patient was to go to OR today with Dr Little for his clotted fistula when Pre-Op EKG showed slow ventricular rate. Cardiology was consulted and was not cleared from cardiac perspective for surgery. In ER labs show hyperkalemia with K 8.3 and shiley placed for emergent dialysis. Patient received dialysis and K 3.5. Evaluated by Dr Little and went to OR for removal of embolism from fistula. Condition: Stable - Instructions Diet, Activity, Other Instructions: Follow up with PCP in 1 week Follow up with Watchstander Dr Cross Follow up with Showcase Maker Dr Wallace Follow up with Shoeshiner Dr oJe Follow up with Vascular Dr Little continue with renal diet return to ER if develop severe pain, respiratory distress, chest pain Referrals: Danielito Joe MD [Staff Physician] - Juan Wallace MD [Staff Physician] - Orquidea Chavira MD [Primary Care Provider] - Akhil Cross MD [Staff Physician] - Severo Little MD [Staff Physician] - Disposition: HOME - Home Medications Comprehensive Discharge Medication List: Ambulatory Orders Albuterol Sulfate Inhaler - [Ventolin HFA Inhaler -] 1 puff DAILY 09/06/16 Amlodipine Besylate 10 mg PO BID 09/06/16 Atorvastatin Ca [Lipitor] 20 mg PO DAILY 09/06/16 Cholecalciferol (Vitamin D3) [Vitamin D3] 5,000 unit PO DAILY 09/06/16 Fluticasone/Vilanterol [Breo Ellipta 100-25 Mcg INH] 1 each IH DAILY 09/06/16 Furosemide [Lasix] 40 mg PO BID 09/06/16 Hydralazine HCl 25 mg PO TID 09/06/16 Insulin (Levemir) [Levemir Flexpen -] 20 units SQ DAILY 09/06/16 Aspirin [ASA -] 81 mg PO DAILY #30 tab.chew 01/13/19 Calcium Acetate [Phoslo -] 667 mg PO TIDCM capsule 01/13/19 Carvedilol [Coreg -] 12.5 mg PO BID #60 tablet 01/13/19 Carvedilol [Coreg] 6.25 mg PO BID 01/13/19 Insulin (Levemir) [Levemir Vial] 10 units SQ 0700 units 01/13/19 Insulin (Levemir) [Levemir Vial] 30 units SQ HS units 01/13/19 Labetalol HCl [Normodyne -] 300 mg PO TID 01/13/19 hydrALAZINE HCL [Apresoline -] 50 mg PO BID #60 tablet 01/13/19
[2019-01-13 20:29] VITALS: BP 173/78; PULSE 75
[2019-01-13] MEDS ORDERED: CHLORHEXIDINE GLUCONATE 4% CLEANSER FOR DECOLONIZATION TP SCH (22:00)
[2019-01-13] MEDS ORDERED: MUPIROCIN 2% TOPICAL OINTMENT FOR DECOLONIZATION NS SCH (22:00)
--- NOTE | 2019-01-16 12:18 | OP ---
DATE OF OPERATION: 01/13/2019 SURGEON: Severo Barajas MD PROCEDURE: Percutaneous destruction thrombectomy with venoplasty of arteriovenous fistula of right arm. PREOPERATIVE DIAGNOSIS: Thrombosed arteriovenous fistula, right arm. POSTOPERATIVE DIAGNOSIS: Thrombosed arteriovenous fistula, right arm, stenosis. ANESTHESIA: Fractional. ANESTHESIOLOGIST: Janette OPERATIVE FINDINGS: The right radial cephalic fistula was thrombosed. Following thrombectomy, stenosis of the vein in the forearm was identified with greater than 80% narrowing. OPERATIVE PROCEDURE: Following routine patient identification with side and site verification, intravenous sedation was established. Right arm was prepped with ChloraPrep. Time-out was performed, 1% lidocaine was infiltrated over the distal end of the fistula, and using ultrasound guidance, a needle was introduced into the vein lumen. A wire was passed proximally, and the needle was exchanged for a 5-Turkish catheter and then the catheter exchanged for a 7-Turkish sheath. An angled tip wire and catheter were advanced proximally through the thrombosed fistula into cephalic vein proximal to the elbow. Venography was performed showing a patent vein at this level was no stenosis in the venous outflow. The wire was replaced. Suction thrombectomy with the AngioJet was then performed. Repeat imaging revealed diffuse stenosis in the vein and the forearm, and this was balloon dilated with 7-mm balloon. No. 4 Dena catheter was also used to remove small amounts of thrombus from the vein. Repeat angiography was performed showing a patent lumen. The patient was systemically heparinized during the procedure. The sheath was removed and a mattress suture of nylon placed. The vein was then reassessed in the proximal forearm directed distally with 7-Turkish sheath. The wire and catheter were advanced into the radial artery and angiography performed showing a patent radial artery. The AngioJet was used on the distal portion of the graft and the No. 4 Dena catheter used to complete the thrombectomy. Completion imaging showed good flow through the fistula with no residual stenosis. The sheath was removed and nylon suture placed. Patient was taken to the recovery room in stable condition. SEVERO BARAJAS M.D. [id number]
== END 2019-01-13 20:58 | disposition home or self-care (01) | DRG 252 ==
LOC: JER 10:32 → JERBED 12:41 → JICU 14:57
PROVIDERS: ADMIT Family Medicine; ATTEND Family Medicine
PROC: 06HM33Z Insertion of Infusion Device into Right Femoral Vein, Percutaneous Approach (ICD-10-PCS; 2019-01-12)
PROC: B54BZZA Ultrasonography of Right Lower Extremity Veins, Guidance (ICD-10-PCS; 2019-01-12)
PROC: 5A1D70Z Performance of Urinary Filtration, Intermittent, Less than 6 Hours Per Day (ICD-10-PCS; 2019-01-12)
PROC: 05CY3ZZ Extirpation of Matter from Upper Vein, Percutaneous Approach (ICD-10-PCS; principal; 2019-01-13 09:30)
DX: T82.868A Thrombosis due to vascular prosthetic devices, implants and grafts, initial encounter (principal); N18.6 End stage renal disease; I12.0 Hypertensive chronic kidney disease with stage 5 chronic kidney disease or end stage renal disease; Y83.8 Other surgical procedures as the cause of abnormal reaction of the patient, or of later complication, without mention of misadventure at the time of the procedure; E87.5 Hyperkalemia; R00.1 Bradycardia, unspecified; E83.42 Hypomagnesemia; E83.39 Other disorders of phosphorus metabolism; Z79.4 Long term (current) use of insulin; Z87.891 Personal history of nicotine dependence; E11.22 Type 2 diabetes mellitus with diabetic chronic kidney disease; Z99.2 Dependence on renal dialysis; I45.10 Unspecified right bundle-branch block; E78.5 Hyperlipidemia, unspecified; R94.31 Abnormal electrocardiogram [ECG] [EKG]; D64.9 Anemia, unspecified; D69.6 Thrombocytopenia, unspecified
CPT/HCPCS: 36415; 76000-TC-FY; 80048; 80053; 80061; 82550; 82553; 82962; 83036; 83721; 83735; 84100; 84484; 85025; 85610; 85730; 86803; 86850; 86900; 86901; 87340; 93005; 93010; 99285-25; J1644

== ENCOUNTER 2019-09-24 13:07 | Inpatient (IN) | payer OTHER, MEDICARE ==
--- NOTE | 2019-09-24 13:22 | PDOC ---
Rapid Medical Evaluation Medical Evaluation: Allergies Allergy/AdvReac Type Severity Reaction Status Date / Time No Known Allergies Allergy Verified 05/26/19 14:28 09/24/19 13:16 The patient is a 59 y/o M on ESRD (/Fri/Fri) presents to the ER for a clotted R forearm AV shunt. Seen by Dr. Little this morning and diagnosed with a clotted AV shunt on US. Dialyzed yesterday. Exam: no palpable thrill to the R AV shunt Orders: labs Pt to proceed to the ER for further evaluation Discharge Disposition - Diagnosis Thrombosis of arteriovenous fistula Qualifiers: Encounter type: initial encounter Qualified Code(s): T82.868A - Thrombosis due to vascular prosthetic devices, implants and grafts, initial encounter - Referrals - Patient Instructions - Post Discharge Activity
[2019-09-24 13:27] VITALS: BMI 34.2
[2019-09-24 14:13] LABS: BASO % 0.5 % (0-2.0); EOS % 1.4 % (0-4.5); HEMOGLOBIN 12.2 GM/dL (11.7-16.9); LYMPH % 18.9 % (8-40); MCH 31.4 pg (25.7-33.7); MCHC 32.9 g/dl (32.0-35.9); MEAN CELL VOLUME 95.5 fl (80-96); MONO % 5.9 % (3.8-10.2); NEUT % 73.3 % (42.8-82.8); PLATELET COUNT 125 K/MM3 (134-434); RBC 3.87 M/mm3 (4.00-5.60); RDW 14.4 % (11.9-15.9)
--- NOTE | 2019-09-24 14:13 | PDOC ---
History of Present Illness <Tamika Lynn - Last Filed: 09/24/19 14:47> - General History Source: Patient - History of Present Illness Timing/Duration: other (last night) <Bing Briseno - Last Filed: 09/24/19 16:47> - General Chief Complaint: Dialysis Shunt Problem Stated Complaint: SENT BY DOC Time Seen by Provider: 09/24/19 13:47 Past History <Tamika Lynn - Last Filed: 09/24/19 14:47> - Medical History Anemia: No Asthma: No Cancer: No Cardiac Disorders: No CVA: No COPD: No CHF: No Diabetes: Yes Dialysis: Yes (T,TH,SAT) GI Disorders: No Disorders: No HTN: Yes Hypercholesterolemia: No Liver Disease: No Seizures: No Thyroid Disease: No - Surgical History Orthopedic Surgery: Yes (Right foot surgery x 3 "my bone was coming through my foot") - Immunization History Immunization Up to Date: Yes - Psycho-Social/Smoking History Smoking History: Never smoked Have you smoked in the past 12 months: No If you are a former smoker, when did you quit?: 2010 - Substance Abuse Hx (Audit-C & DAST Scrn) In the last yr the pt used illegal drug/Rx for NonMed reason: No Score: Yes response is considered Positive: 0 Screen Result (Positive result requires Nsg. DAST-10): Negative <Bing Briseno - Last Filed: 09/24/19 16:47> - Medical History Allergies/Adverse Reactions: Allergies Allergy/AdvReac Type Severity Reaction Status Date / Time No Known Allergies Allergy Verified 09/24/19 13:20 Home Medications: Ambulatory Orders Cholecalciferol (Vitamin D3) [Vitamin D3] 5,000 unit PO DAILY 09/06/16 Furosemide [Lasix] 40 mg PO ASDIR 09/06/16 Calcium Acetate [Phoslo -] 667 mg PO TIDCM capsule 01/13/19 Carvedilol [Coreg] 12.5 mg PO BID 01/13/19 Omeprazole 20 mg PO DAILY 05/27/19 Acetaminophen [Tylenol .Regular Strength -] 650 mg PO Q4H PRN tablet 05/30/19 hydrALAZINE HCL [Apresoline -] 50 mg PO BID tablet 05/30/19 Insulin Glargine,Hum.rec.anlog [Jennifer Marionar] 30 unit SQ DAILY 09/24/19 Insulin Lispro [Humalog] 5 unit SQ ASDIR 09/24/19 Rosuvastatin [Crestor -] 5 mg PO HS 09/24/19 Review of Systems - Review of Systems Constitutional: No: Chills, Fever Respiratory: No: Cough, Shortness of Breath Cardiac (ROS): No: Chest Pain Integumentary: No: Erythema <Bing Briseno - Last Filed: 09/24/19 16:47> *Physical Exam - Vital Signs Last Vital Signs Temp Pulse Resp BP Pulse Ox 97.8 F 64 16 152/85 100 09/24/19 13:21 09/24/19 13:21 09/24/19 13:21 09/24/19 13:21 09/24/19 13:21 <Tamika Lynn - Last Filed: 09/24/19 14:47> - Vital Signs Last Vital Signs Temp Pulse Resp BP Pulse Ox 97.8 F 64 16 152/85 100 09/24/19 13:21 09/24/19 13:21 09/24/19 13:21 09/24/19 13:21 09/24/19 13:21 - Physical Exam General Appearance: Yes: Appropriately Dressed. No: Apparent Distress HEENT: positive: Normal Voice Neck: positive: Supple Respiratory/Chest: negative: Respiratory Distress Extremity: positive: Other (fistula to RUE, no erythema or swelling) Integumentary: positive: Dry, Warm Neurologic: positive: Fully Oriented, Alert, Normal Mood/Affect <Bing Briseno - Last Filed: 09/24/19 16:47> ED Treatment Course - LABORATORY CBC & Chemistry Diagram: 09/24/19 11:00 09/24/19 11:00 - ADDITIONAL ORDERS Additional order review: Laboratory Results 09/24/19 11:00 PT with INR 12.40 INR 1.05 09/24/19 11:00 RBC 3.87 L MCV 95.5 MCHC 32.9 RDW 14.4 MPV 8.0 Neutrophils % 73.3 Lymphocytes % 18.9 D Monocytes % 5.9 Eosinophils % 1.4 D Basophils % 0.5 <Tamika Lynn - Last Filed: 09/24/19 14:47> - LABORATORY CBC & Chemistry Diagram: 09/24/19 11:00 09/24/19 15:12 <Bing Briseno - Last Filed: 09/24/19 16:47> Medical Decision Making - Medical Decision Making The patient was seen and evaluated in conjunction with midlevel provider under my direct supervision, ancillary studies were reviewed. I agree with the plan as outlined with_ANIBAL Briseno. HPI, workup/dispo as outlined. VS reviewed, wnl. Clogged AV fistula, will require vascular intervention, Dr. Little consulted Admit, preop labs and testing sent 09/24/19 14:47 <Tamika Lynn - Last Filed: 09/24/19 14:47> - Medical Decision Making 09/24/19 14:10 59 yo M, h/o HTN< HLD, DM< ESRD on HOWELL via RUE fistula (T/R/S), last dialyzed yesterday but last night gelt no "pulsation" to fistula and seen by DR Little of [facility] this am who confirmed that access in clotted based on US. Pt reports no sxs. DR Cross in ED and confirms that [facility] taking pt to OR today. Pre-op labs pending 09/24/19 16:46 K 5.5. To be dialyzed per d/w Dr Cross. Pt currently in OR <Bing Briseno - Last Filed: 09/24/19 16:47> Discharge <Tamika Lynn - Last Filed: 09/24/19 14:47> - Discharge Information Problems reviewed: Yes - Admission Yes <Bing Briseno - Last Filed: 09/24/19 16:47> - Discharge Information Clinical Impression/Diagnosis: Thrombosis of arteriovenous fistula Qualifiers: Encounter type: initial encounter Qualified Code(s): T82.868A - Thrombosis due to vascular prosthetic devices, implants and grafts, initial encounter Condition: Stable - Follow up/Referral Referrals: Orquidea Chavira MD [Primary Care Provider] -
[2019-09-24 14:23] LABS: INR 1.05 (0.83-1.09); PROTHROMBIN TIME (PATIENT) 12.4 SEC (9.7-13.0)
[2019-09-24 14:48] LABS: ALBUMIN 3.9 g/dl (3.4-5.0); BILIRUBIN,TOTAL 0.4 mg/dL (0.2-1); BLOOD UREA NITROGEN 43.7 mg/dL (7-18); CALCIUM 8.7 mg/dL (8.5-10.1); TOT PROT 7.9 g/dl (6.4-8.2)
[2019-09-24 14:57] LABS: CREATININE 9.8 mg/dL (0.55-1.3)
[2019-09-24 14:58] LABS: POTASSIUM 6.8 mmol/L (3.5-5.1)
[2019-09-24] MEDS ORDERED: LIDOCAINE HCL 1%, 10 MG/ML (20ML VIAL) ONE (15:38)
[2019-09-24] MEDS ORDERED: HEPARIN NA (PORCINE) 5,000 UNITS/ML 1ML VIAL ONE ×2 (15:38→17:01)
[2019-09-24 15:56] LABS: BLOOD UREA NITROGEN 43.9 mg/dL (7-18); CALCIUM 8.5 mg/dL (8.5-10.1); POTASSIUM 5.5 mmol/L (3.5-5.1)
[2019-09-24 16:05] LABS: CREATININE 9.9 mg/dL (0.55-1.3)
[2019-09-24] MEDS ORDERED: MIDAZOLAM HCL 2 MG/2 ML SINGLE DOSE VIAL ONE ×2 (16:17)
[2019-09-24] MEDS ORDERED: PROPOFOL 20 ML ONE (16:17)
[2019-09-24] MEDS ORDERED: ACETAMINOPHEN 325 MG TABLET (FP) PO PRN (16:41)
[2019-09-24] MEDS ORDERED: CALCIUM ACETATE 667 MG CAPSULE (FP) PO SCH (17:30)
--- NOTE | 2019-09-24 18:02 | CONSULT ---
Consult - text type - Consultation Consultation Note: 59 year old man ESRD on HD with right forearm AVF. Fistula thrombosed today. Last HD yesterday. Right arm fistula with no thrill or bruit. No edema. Plan for suction thrombectomy. Renal to decide on timing of next dialysis.
--- NOTE | 2019-09-24 18:04 | OP ---
Operative Note - Note: Operative Date: 09/24/19 Pre-Operative Diagnosis: Thrombosed AV fistula Operation: Percutaneous suction thrombectomy. Venoplasty cephalic vein fistula. DCB distal fistula Implants: Thrombosed AVF. Intact proximal cephalic and basilic veins with no stenosis Post-Operative Diagnosis: Same as Pre-op Surgeon: Severo Little Anesthesiologist/BRIDGE TEACHER: Hudson Flores Anesthesia: MAC Estimated Blood Loss (mls): 30
[2019-09-24] MEDS ORDERED: CLOPIDOGREL BISULFATE 75 MG TABLET (FP) PO SCH (18:15)
[2019-09-24] MEDS ORDERED: ASPIRIN 81 MG CHEWABLE TABLETS PO SCH (18:15)
[2019-09-24] MEDS ORDERED: ONDANSETRON 4 MG/2 ML VIAL IVPUSH PRN (18:19)
[2019-09-24] MEDS ORDERED: SODIUM ZIRCONIUM CYCLOSILICATE (LOKELMA) 10 GM PACKET PO ONE (18:30)
--- NOTE | 2019-09-24 18:31 | CONSULT ---
Consult Consult Specialty:: Nephrology Reason for Consultation:: ESRD - History of Present Illness Chief Complaint: clotted fistula History of Present Illness: Pt is a 59 year old man with pmhx of esrd, htn, and anemia who presents to the ER with a clotted fistula. He first noticed that he did not feel the thrill yesterday. He spoke to his vascular surgeon who recommended he come in for evaluation. He last had HD yesterday. I was called to evaluate him. He denies chest pain or palpitations. He denies fevers or chills. He denies shortness of breath. - History Source History Provided By: Patient - Past Medical History Cardio/Vascular: Yes: HTN Pulmonary: Yes: COPD Renal/: Yes: Renal Failure, Renal Inusuff, Hemodialysis Endocrine: Yes: Diabetes Mellitus - Past Surgical History Past Surgical History: Yes: AV Fistula/Graft - Alcohol/Substance Use Hx Alcohol Use: No - Smoking History Smoking history: Never smoked Have you smoked in the past 12 months: No If you are a former smoker, when did you quit?: 2009 - Social History ADL: Independent Home Medications - Allergies Allergies/Adverse Reactions: Allergies Allergy/AdvReac Type Severity Reaction Status Date / Time No Known Allergies Allergy Verified 09/24/19 13:20 - Home Medications Home Medications: Ambulatory Orders Cholecalciferol (Vitamin D3) [Vitamin D3] 5,000 unit PO DAILY 09/06/16 Furosemide [Lasix] 40 mg PO ASDIR 09/06/16 Calcium Acetate [Phoslo -] 667 mg PO TIDCM capsule 01/13/19 Carvedilol [Coreg] 12.5 mg PO BID 01/13/19 Omeprazole 20 mg PO DAILY 05/27/19 Acetaminophen [Tylenol .Regular Strength -] 650 mg PO Q4H PRN tablet 05/30/19 hydrALAZINE HCL [Apresoline -] 50 mg PO BID tablet 05/30/19 Clopidogrel Bisulfate [Plavix -] 75 mg PO DAILY #30 tablet 09/24/19 Insulin Glargine,Hum.rec.anlog [Touisa Solostar] 30 unit SQ DAILY 09/24/19 Insulin Lispro [Humalog] 5 unit SQ ASDIR 09/24/19 Rosuvastatin [Crestor -] 5 mg PO HS 09/24/19 Family Medical History Family History: Denies Review of Systems - Review of Systems Constitutional: reports: No Symptoms Eyes: reports: No Symptoms HENT: reports: No Symptoms Neck: reports: No Symptoms Cardiovascular: reports: No Symptoms Respiratory: reports: No Symptoms Gastrointestinal: reports: No Symptoms Genitourinary: reports: No Symptoms Musculoskeletal: reports: No Symptoms Integumentary: reports: No Symptoms Neurological: reports: No Symptoms Endocrine: reports: No Symptoms Hematology/Lymphatic: reports: No Symptoms Psychiatric: reports: No Symptoms Physical Exam Vital Signs: Vital Signs Temperature 97.8 F 09/24/19 13:21 Pulse Rate 64 09/24/19 13:21 Respiratory Rate 16 09/24/19 13:21 Blood Pressure 152/85 09/24/19 13:21 O2 Sat by Pulse Oximetry (%) 100 09/24/19 13:21 Constitutional: Yes: Calm Eyes: Yes: Conjunctiva Clear HENT: Yes: Atraumatic Neck: Yes: Supple Cardiovascular: Yes: S1, S2 Respiratory: Yes: CTA Bilaterally Gastrointestinal: Yes: Soft Renal/: Yes: WNL Musculoskeletal: Yes: WNL Edema: Yes Edema: LLE: Trace, RLE: Trace Neurological: Yes: Oriented Psychiatric: Yes: Oriented Labs: CBC, BMP 09/24/19 11:00 09/24/19 15:12 Problem List - Problems (1) Thrombosis of arteriovenous fistula Code(s): T82.868A - THROMBOSIS DUE TO VASCULAR PROSTH DEV/GRFT, INIT Qualifiers: Encounter type: initial encounter Qualified Code(s): T82.868A - Thrombosis due to vascular prosthetic devices, implants and grafts, initial encounter (2) COVID-19 virus detected Code(s): U07.1 - COVID POSITIVE (3) ESRD on hemodialysis Code(s): N18.6 - END STAGE RENAL DISEASE; Z99.2 - DEPENDENCE ON RENAL DIALYSIS (4) HTN (hypertension) Code(s): I10 - ESSENTIAL (PRIMARY) HYPERTENSION (5) Hyperkalemia Code(s): E87.5 - HYPERKALEMIA Assessment/Plan Current Medications Generic Name Dose Route Start Last Admin Trade Name Freq PRN Reason Stop Dose Admin Acetaminophen 650 mg 09/24/19 16:41 Tylenol - PO Q4H PRN FEVER Aspirin 81 mg 09/24/19 18:15 Asa - PO DAILY [facility] Calcium Acetate 667 mg 09/24/19 17:30 Phoslo - PO TIDCM [facility] Carvedilol 12.5 mg 09/24/19 22:00 Coreg - PO BID [facility] Clopidogrel Bisulfate 75 mg 09/24/19 18:15 Plavix - PO DAILY [facility] Fentanyl 25 mcg 09/24/19 18:19 Sublimaze Injection - IVPUSH [id number] PRN PAIN-PACU ORDER X 4 DOSES ONLY Hydralazine HCl 50 mg 09/24/19 22:00 Apresoline - PO BID [facility] Insulin Aspart 1 vial 09/24/19 22:00 Novolog Vial Sliding Scale - SQ ACHS [facility] Protocol Ondansetron HCl 4 mg 09/24/19 18:19 Zofran Injection IVPUSH Q6H PRN NAUSEA AND/OR VOMITING Rosuvastatin Calcium 5 mg 09/24/19 22:00 Crestor - PO [facility] Sodium Zirconium Cyclosilicate 10 gm 09/24/19 18:30 Lokelma PO 09/24/19 18:31 ONCE ONE Impression 1. ESRD 2. hyperkalemia 3. clotted fistula 4. htn 5. dm 6. hld Plan - first bmp was hemolyzed - repeat potassium improved - will give a dose of lokelma - pt does not want to stay for hd - he has hd set up as outpt tomorrow morning - fistula to be repaired today
[2019-09-24] MEDS ORDERED: CLOPIDOGREL BISULFATE 75 MG TABLET (FP) ONE (18:36)
[2019-09-24] MEDS ORDERED: ASPIRIN 81 MG CHEWABLE TABLETS ONE (18:36)
[2019-09-24 19:17] VITALS: PULSE 55
[2019-09-24 19:25] VITALS: TEMP 97
[2019-09-24 20:41] VITALS: BP 175/75
[2019-09-24] MEDS ORDERED: INSULIN SLIDING SCALE (NOVOLOG) 1 VIAL SQ SCH (22:00)
[2019-09-24] MEDS ORDERED: ROSUVASTATIN CA 5 MG TABLET (FP) PO SCH (22:00)
[2019-09-24] MEDS ORDERED: CARVEDILOL 12.5 MG TABLET (FP) PO SCH (22:00)
[2019-09-24] MEDS ORDERED: hydrALAZINE HCL 50 MG TABLET (FP) PO SCH (22:00)
--- NOTE | 2019-09-25 11:59 | OP ---
DATE OF OPERATION: 09/24/2019 PROCEDURE: Percutaneous suction thrombectomy of right arm arteriovenous graft fistula. Venogram and venoplasty of cephalic vein. Drug-coated balloon venoplasty of the distal fistula. PREOPERATIVE DIAGNOSIS: Thrombosed arteriovenous fistula. POSTOPERATIVE DIAGNOSIS: Thrombosed arteriovenous fistula with stenosis of cephalic vein. ANESTHESIA: Fractional. ANESTHESIOLOGIST: MARTY Egan OPERATIVE FINDINGS: The right radial cephalic fistula was thrombosed up to the elbow. Outflow via basilic and cephalic veins was intact, with no evidence of proximal stenosis. Following thrombectomy, there was diffuse stenosis of the cephalic vein, most severe at the distal end. In 4 weeks via the radial artery was patent, with no evidence of inflow disease. OPERATIVE PROCEDURE: Following routine patient identification with side and site verification, intravenous sedation was established. The right arm was prepped with ChloraPrep. Timeout was performed. Using ultrasound guidance, the thrombosed AV fistula was identified in the right forearm. Lidocaine 1% was infiltrated over the distal end of the vein. It was cannulated under ultrasound guidance with a Micropuncture needle. A wire was advanced proximally and the needle exchanged for a 5-Polish catheter, and then a 7-Polish sheath was placed. An angle-tip wire and catheter were then advanced proximally into the antecubital vein. Contrast was injected with the above-noted findings. The wire was replaced. AngioJet using an AVX catheter was then used to perform suction thrombectomy. Patient was systemically heparinized as well. A No. 4 Dena catheter was then pulled back through the vein, with removal of thrombus from the sheath, which was then replaced. Venogram performed showing diffuse stenosis in the vein. The cephalic vein was then dilated with a 7-mm balloon. Repeat imaging showed a patent vein with no residual stenosis. The sheath was removed and the site closed with a monitors suture of 3-0 nylon. The vein was then reaccessed in the distal upper arm, cephalic vein, and a wire and catheter advanced distally to the arteriovenous anastomosis. Arteriogram in the radial artery was then performed. The wire was replaced and the AngioJet used to clear out the distal end of the vein. Pulled back across the arterial anastomosis. Imaging showed diffuse stenosis of this area. The distal vein was then balloon dilated with a 7-mm balloon. A 7-mm x 80-mm Lutonix drug-coated balloon was then used to treat the distal end of the vein. Repeat imaging was performed and the sheath was removed and the suture nylon placed at this site. Sterile dressings were applied and the patient was taken to recovery room in stable condition. SARITHA BARAJAS M.D. [id number] MTDD
--- NOTE | 2019-09-26 17:36 | EKG ---
Test Reason : Blood Pressure : / mmHG Vent. Rate : 061 BPM Atrial Rate : 061 BPM P-R Int : 182 ms QRS Dur : 138 ms QT Int : 444 ms P-R-T Axes : 065 -54 013 degrees QTc Int : 446 ms NORMAL SINUS RHYTHM RIGHT BUNDLE BRANCH BLOCK LEFT ANTERIOR FASCICULAR BLOCK BIFASCICULAR BLOCK MINIMAL VOLTAGE CRITERIA FOR LVH, MAY BE NORMAL VARIANT SEPTAL INFARCT , AGE UNDETERMINED ABNORMAL ECG Confirmed by MD Abdi, Dominik ([id number]) on 09/26/2019 5:36:25 PM Referred By: Confirmed By:Dominik Patton MD
== END 2019-09-24 19:22 | disposition home or self-care (01) | DRG 252 ==
LOC: JER 13:07 → JERBED 16:52
PROVIDERS: ADMIT Family Medicine; ATTEND Family Medicine
PROC: 057 Upper Veins, Dilation (ICD-10-PCS; 2019-09-24)
PROC: B50MYZZ Plain Radiography of Right Upper Extremity Veins using Other Contrast (ICD-10-PCS; 2019-09-24)
PROC: 05CD3ZZ Extirpation of Matter from Right Cephalic Vein, Percutaneous Approach (ICD-10-PCS; principal; 2019-09-24 14:45)
DX: T82.868A Thrombosis due to vascular prosthetic devices, implants and grafts, initial encounter (principal); N18.6 End stage renal disease; I12.0 Hypertensive chronic kidney disease with stage 5 chronic kidney disease or end stage renal disease; Y83.8 Other surgical procedures as the cause of abnormal reaction of the patient, or of later complication, without mention of misadventure at the time of the procedure; E11.22 Type 2 diabetes mellitus with diabetic chronic kidney disease; Z99.2 Dependence on renal dialysis; E78.5 Hyperlipidemia, unspecified
CPT/HCPCS: 36415; 76000-TC-FY; 80048; 80053; 85025; 85610; 86850; 86900; 86901; 93005; 93010; 94760; 99285-25; J1644

== ENCOUNTER 2021-05-02 04:22 | Day surgery (SDC) | payer OTHER, MEDICARE ==
[2021-04-27 13:59] VITALS: BMI 31.8
[2021-05-02] MEDS ORDERED: INSULIN (NOVOLOG) ASPART 100 UNITS/ML 10ML VIAL SQ ONE (07:45)
[2021-05-02] MEDS ORDERED: PROPOFOL 20 ML ONE (09:20)
[2021-05-02] MEDS ORDERED: MIDAZOLAM HCL 2 MG/2 ML SINGLE DOSE VIAL ONE (09:20)
[2021-05-02] MEDS ORDERED: BUPIVACAINE HCL/PF 0.5% (5MG/ML) 10 ML VIAL ONE (09:41)
[2021-05-02] MEDS ORDERED: ceFAZolin SODIUM 1 GM VIAL IVPB ONE (09:47)
[2021-05-02] MEDS ORDERED: ceFAZolin SODIUM 1 GM VIAL ONE (10:15)
[2021-05-02] MEDS ORDERED: KETOROLAC TROMETHAMINE 30 MG/1 ML VIAL ONE (10:15)
[2021-05-02] MEDS ORDERED: DEXAMETHASONE SOD PHOSPHATE 4 MG/1 ML VIAL ONE (10:15)
[2021-05-02] MEDS ORDERED: BUPIVACAINE HCL/PF 0.5% (5 MG/ML) 30 ML VIAL IJ ONE (10:16)
[2021-05-02] MEDS ORDERED: ONDANSETRON 4 MG/2 ML VIAL IVPUSH PRN (10:28)
[2021-05-02] MEDS ORDERED: oxyCODONE HCL 5 MG TABLET PO PRN (10:28)
[2021-05-02] MEDS ORDERED: SODIUM CHLORIDE 1,000 ML IV SCH (10:30)
[2021-05-02 14:42] VITALS: BP 170/89; PULSE 56; TEMP 97.3
== END 2021-05-02 13:30 | disposition home or self-care (01) ==
LOC: JASU-SURG 04:22
PROVIDERS: ATTEND Orthopaedic Surgery
PROC: 0SBD4ZZ Excision of Left Knee Joint, Percutaneous Endoscopic Approach (ICD-10-PCS; principal; 2021-05-02 09:00)
DX: S83.282A Other tear of lateral meniscus, current injury, left knee, initial encounter (principal); X58.XXXA Exposure to other specified factors, initial encounter; Y93.9 Activity, unspecified; Y92.9 Unspecified place or not applicable; M17.12 Unilateral primary osteoarthritis, left knee; M79.4 Hypertrophy of (infrapatellar) fat pad; M65.862 Other synovitis and tenosynovitis, left lower leg; M25.562 Pain in left knee; I12.0 Hypertensive chronic kidney disease with stage 5 chronic kidney disease or end stage renal disease; E13.22 Other specified diabetes mellitus with diabetic chronic kidney disease; N18.6 End stage renal disease; Z99.2 Dependence on renal dialysis
CPT/HCPCS: 82962; 94760

== ENCOUNTER 2021-10-21 19:52 | Inpatient (IN) | payer OTHER, MEDICARE ==
[2021-10-21] MEDS ORDERED: SODIUM CHLORIDE 3,293 ML IV ONE (21:34)
[2021-10-21] MEDS ORDERED: SODIUM CHLORIDE 0.9% 500 ML INFUS.BAG IV ONE (21:40)
[2021-10-21] MEDS ORDERED: ACETAMINOPHEN 1000 MG/100 ML BAG IVPB ONE (21:49)
[2021-10-21] MEDS ORDERED: ACETAMINOPHEN INJECTION 100 ML IVPB ONE (22:53)
[2021-10-21 23:09] LABS: BASO % 0.2 % (0-2.0); EOS % 0.2 % (0-4.5); HEMATOCRIT 32.9 % (35.4-49); HEMOGLOBIN 10.8 GM/dL (11.7-16.9); LYMPH % 9.9 % (8-40); MCH 31.4 pg (25.7-33.7); MCHC 32.8 g/dl (32.0-35.9); MEAN CELL VOLUME 95.6 fl (80-96); MEAN PLT VOLUME 7.8 fl (7.5-11.1); MONO % 4.3 % (3.8-10.2); NEUT % 85.4 % (42.8-82.8); PLATELET COUNT 164 10^3/uL (134-434); RBC 3.44 M/mm3 (4.00-5.60); WHITE BLOOD COUNT 16.1 K/mm3 (4.0-10.0)
[2021-10-21] MEDS ORDERED: CEFEPIME HCL/D5W 2 GM/50 ML BAG IVPB ONE (23:11)
[2021-10-21] MEDS ORDERED: VANCOMYCIN 1 GM in D5W (PRE-DOCKED) 1,000 MG/250 ML IVPB ONE (23:11)
[2021-10-21 23:18] LABS: INR 1.17 (0.83-1.09); PROTHROMBIN TIME (PATIENT) 13.5 SEC (9.7-13.0)
[2021-10-21 23:21] LABS: ACTIVATED PTT 30.4 SECONDS (25.2-36.5)
[2021-10-21 23:28] LABS: CHLORIDE 103 mmol/L (98-107); SODIUM 137 mmol/L (136-145)
[2021-10-21 23:30] LABS: ALBUMIN 3.5 g/dl (3.4-5.0); BLOOD UREA NITROGEN 57.6 mg/dL (7-18); CALCIUM 8.1 mg/dL (8.5-10.1); CO2 20 mmol/L (21-32)
[2021-10-21 23:31] LABS: GLUCOSE,RANDOM 111 mg/dL (74-106)
[2021-10-21 23:34] LABS: SGOT/AST 19 U/L (15-37); SGPT/ALT 18 U/L (13-61)
[2021-10-21 23:36] LABS: BILIRUBIN,TOTAL 0.5 mg/dL (0.2-1); TOT PROT 6.6 g/dl (6.4-8.2)
[2021-10-21 23:37] LABS: ALK PHOS 71 U/L (45-117)
[2021-10-21 23:41] LABS: ANION GAP 14 MMOL/L (8-16); CREATININE 12.1 mg/dL (0.55-1.3)
[2021-10-21] MEDS ORDERED: SODIUM ZIRCONIUM CYCLOSILICATE (LOKELMA) 5 GM PACKET PO SCH (23:56)
[2021-10-21] MEDS ORDERED: CEFEPIME 2 GM/100 ML BAG IVPB ONE (23:56)
[2021-10-22 02:22] LABS: VENOUS BASE EXCESS -6.3 mmol/L (-2-2); VENOUS O2 SATURATION 63.7 % (70-80); VENOUS PCO2 41.9 mmHg (38-52); VENOUS PH 7.293 (7.310-7.410)
[2021-10-22] MEDS ORDERED: DOCUSATE SODIUM 100 MG CAPSULE (FP) PO PRN (03:15)
[2021-10-22] MEDS ORDERED: ALBUTEROL SO4 HFA INHALER IH PRN (03:39)
[2021-10-22] MEDS ORDERED: traMADol HCL 50 MG TABLET PO ONE (03:44)
[2021-10-22] MEDS ORDERED: VANCOMYCIN/WATER FOR INJ (PEG) 1,000 MG/200 ML BAG IVPB ONE (04:27)
[2021-10-22] MEDS ORDERED: traMADol HCL 50 MG TABLET ONE (04:27)
[2021-10-22] MEDS ORDERED: ACETAMINOPHEN 325 MG TABLET (FP) PO PRN (04:51)
[2021-10-22] MEDS ORDERED: HEPARIN NA (PORCINE) 5,000 UNITS/ML 1ML VIAL ONE (06:52)
[2021-10-22] MEDS: HEPARIN NA (PORCINE) 5,000 UNITS/ML 1ML VIAL SQ SCH ×3 (06:54→22:19)
[2021-10-22] MEDS ORDERED: SODIUM CHLORIDE 250 ML IV PRN (07:39)
[2021-10-22] MEDS ORDERED: PANTOPRAZOLE 20 MG TABLET PO ONE (09:25)
[2021-10-22] MEDS ORDERED: ASPIRIN 81 MG CHEWABLE TABLETS ONE (09:25)
[2021-10-22] MEDS ORDERED: SODIUM ZIRCONIUM CYCLOSILICATE (LOKELMA) 5 GM PACKET ONE (09:25)
[2021-10-22] MEDS ORDERED: GABAPENTIN 100 MG CAPSULE ONE (09:25)
[2021-10-22] MEDS: PANTOPRAZOLE 20 MG TABLET PO SCH (09:31)
[2021-10-22] MEDS: SODIUM ZIRCONIUM CYCLOSILICATE (LOKELMA) 5 GM PACKET PO SCH (09:31)
[2021-10-22] MEDS: GABAPENTIN 100 MG CAPSULE PO SCH ×2 (09:31→22:19)
[2021-10-22] MEDS: ASPIRIN 81 MG CHEWABLE TABLETS PO SCH (09:31)
[2021-10-22] MEDS ORDERED: SODIUM ZIRCONIUM CYCLOSILICATE (LOKELMA) 5 GM PACKET PO SCH (10:00)
[2021-10-22 11:36] VITALS: BMI 32.8
[2021-10-22 13:54] LABS: HEMATOCRIT 31.8 % (35.4-49); HEMOGLOBIN 10.4 GM/dL (11.7-16.9); MCH 31.3 pg (25.7-33.7); MCHC 32.7 g/dl (32.0-35.9); MEAN CELL VOLUME 95.7 fl (80-96); MEAN PLT VOLUME 7.8 fl (7.5-11.1); PLATELET COUNT 123 10^3/uL (134-434); RBC 3.33 M/mm3 (4.00-5.60); RDW 15.2 % (11.9-15.9); WHITE BLOOD COUNT 6.7 K/mm3 (4.0-10.0)
[2021-10-22] MEDS ORDERED: VANCOMYCIN 1 GM in D5W (PRE-DOCKED) 1,000 MG/250 ML IVPB SCH (14:00)
[2021-10-22] MEDS ORDERED: VANCOMYCIN 1 GM/200 ML PREMIX BAG IVPB SCH (14:00)
[2021-10-22] MEDS ORDERED: CEFEPIME 1 GM in DEXTROSE 5%-WATER 100 ML IVPB SCH (14:00)
[2021-10-22 14:11] LABS: CHLORIDE 102 mmol/L (98-107); SODIUM 136 mmol/L (136-145)
[2021-10-22 14:13] LABS: CALCIUM 7.9 mg/dL (8.5-10.1)
[2021-10-22 14:14] LABS: ALBUMIN 3.1 g/dl (3.4-5.0); BLOOD UREA NITROGEN 63.7 mg/dL (7-18); CO2 19 mmol/L (21-32); GLUCOSE,RANDOM 175 mg/dL (74-106)
[2021-10-22 14:17] LABS: SGOT/AST 13 U/L (15-37); SGPT/ALT 14 U/L (13-61)
[2021-10-22 14:19] LABS: BILIRUBIN,TOTAL 0.4 mg/dL (0.2-1); TOT PROT 6.3 g/dl (6.4-8.2)
[2021-10-22 14:20] LABS: ALK PHOS 67 U/L (45-117); ANION GAP 14 MMOL/L (8-16); CREATININE 13.2 mg/dL (0.55-1.3)
[2021-10-22] MEDS ORDERED: CEFEPIME 1 GM in DEXTROSE 5%-WATER 100 ML IVPB ONE (21:32)
[2021-10-22] MEDS ORDERED: ROSUVASTATIN CA 5 MG TABLET PO SCH (22:00)
[2021-10-23] MEDS: HEPARIN NA (PORCINE) 5,000 UNITS/ML 1ML VIAL SQ SCH ×2 (05:41→13:10)
[2021-10-23 08:04] LABS: BASO % 0.4 % (0-2.0); EOS % 1.2 % (0-4.5); HEMOGLOBIN 11.3 GM/dL (11.7-16.9); MCH 31.8 pg (25.7-33.7); MCHC 33.3 g/dl (32.0-35.9); MEAN CELL VOLUME 95.4 fl (80-96); MEAN PLT VOLUME 7.9 fl (7.5-11.1); NEUT % 80.4 % (42.8-82.8); PLATELET COUNT 124 10^3/uL (134-434); RBC 3.56 M/mm3 (4.00-5.60); WHITE BLOOD COUNT 7.6 K/mm3 (4.0-10.0)
[2021-10-23 08:30] LABS: CHLORIDE 101 mmol/L (98-107); SODIUM 136 mmol/L (136-145)
[2021-10-23 08:34] LABS: ALBUMIN 2.8 g/dl (3.4-5.0); BLOOD UREA NITROGEN 43.4 mg/dL (7-18); CALCIUM 7.9 mg/dL (8.5-10.1)
[2021-10-23 08:35] LABS: ANION GAP 9 MMOL/L (8-16); CO2 26 mmol/L (21-32); GLUCOSE,RANDOM 141 mg/dL (74-106); MAGNESIUM 1.7 mg/dL (1.8-2.4)
[2021-10-23 08:37] LABS: SGPT/ALT 16 U/L (13-61)
[2021-10-23 08:38] LABS: PHOSPHOROUS 6.4 mg/dL (2.5-4.9)
[2021-10-23 08:39] LABS: BILIRUBIN,TOTAL 0.5 mg/dL (0.2-1); SGOT/AST 13 U/L (15-37); TOT PROT 6.1 g/dl (6.4-8.2)
[2021-10-23 08:40] LABS: ALK PHOS 69 U/L (45-117)
[2021-10-23 08:43] LABS: CREATININE 9.5 mg/dL (0.55-1.3)
[2021-10-23] MEDS ORDERED: CEFEPIME 1 GM in DEXTROSE 5%-WATER 100 ML IVPB SCH (10:00)
[2021-10-23] MEDS: PANTOPRAZOLE 20 MG TABLET PO SCH (10:08)
[2021-10-23] MEDS: GABAPENTIN 100 MG CAPSULE PO SCH (10:08)
[2021-10-23] MEDS: ASPIRIN 81 MG CHEWABLE TABLETS PO SCH (10:08)
[2021-10-23] MEDS: SODIUM ZIRCONIUM CYCLOSILICATE (LOKELMA) 5 GM PACKET PO SCH (10:08)
[2021-10-23 13:08] VITALS: TEMP 98.7
[2021-10-23] MEDS ORDERED: SODIUM CHLORIDE 250 ML IV PRN (14:16)
[2021-10-23] MEDS ORDERED: CEFEPIME 1 GM in DEXTROSE 5%-WATER 100 ML IVPB ONE (15:15)
[2021-10-23] MEDS ORDERED: VANCOMYCIN/WATER FOR INJ (PEG) 1,000 MG/200 ML BAG IVPB ONE (15:15)
[2021-10-23 16:53] VITALS: BP 110/68; PULSE 85; RESP 20
[2021-10-24] MEDS ORDERED: VANCOMYCIN 1 GM/200 ML PREMIX BAG IVPB SCH (10:00)
[2021-10-24] MEDS ORDERED: HEPARIN NA (PORCINE) 5,000 UNITS/ML 1ML VIAL IVPUSH ONE (14:16)
== END 2021-10-23 19:00 | disposition home or self-care (01) | DRG 193 ==
LOC: JER 19:52 → JERBED 10-22 00:39 → J2W 10-22 10:10
PROVIDERS: ADMIT Hospitalist; ATTEND Family Medicine
PROC: 5A1D70Z Performance of Urinary Filtration, Intermittent, Less than 6 Hours Per Day (ICD-10-PCS; principal; 2021-10-22)
DX: J18.9 Pneumonia, unspecified organism (principal); N18.6 End stage renal disease; I12.0 Hypertensive chronic kidney disease with stage 5 chronic kidney disease or end stage renal disease; J44.0 Chronic obstructive pulmonary disease with (acute) lower respiratory infection; J44.9 Chronic obstructive pulmonary disease, unspecified; E11.22 Type 2 diabetes mellitus with diabetic chronic kidney disease; E78.5 Hyperlipidemia, unspecified; R00.0 Tachycardia, unspecified; R77.8 Other specified abnormalities of plasma proteins; M54.9 Dorsalgia, unspecified; E87.5 Hyperkalemia; M79.662 Pain in left lower leg; R94.31 Abnormal electrocardiogram [ECG] [EKG]; R50.9 Fever, unspecified; D72.829 Elevated white blood cell count, unspecified; Z99.2 Dependence on renal dialysis
CPT/HCPCS: 0241U-QW; 36415; 71045-TC-FY; 80048; 80053; 82550; 82553; 82803; 82962; 83036; 83605; 83735; 84100; 84484; 85025; 85027; 85610; 85730; 86803; 86850; 86900; 86901; 87040; 87340; 93005; 93010; 93970-TC; 97116-GP; 97161-GP; 99285-25; G0480; J1644

== ENCOUNTER 2022-03-21 16:00 | Inpatient (IN) | payer OTHER, MEDICARE ==
[2022-03-21 18:32] LABS: BASO % 0.5 % (0-2.0); HEMATOCRIT 32.7 % (35.4-49); HEMOGLOBIN 10.6 GM/dL (11.7-16.9); LYMPH % 4.2 % (8-40); MCH 29.6 pg (25.7-33.7); MCHC 32.4 g/dl (32.0-35.9); MEAN CELL VOLUME 91.5 fl (80-96); MEAN PLT VOLUME 8.3 fl (7.5-11.1); MONO % 2.1 % (3.8-10.2); NEUT % 93.2 % (42.8-82.8); PLATELET COUNT 117 10^3/uL (134-434); RBC 3.57 M/mm3 (4.00-5.60); RDW 16.3 % (11.9-15.9); WHITE BLOOD COUNT 15.6 K/mm3 (4.0-10.0)
[2022-03-21 18:39] LABS: INR 1.45 (0.83-1.09); PROTHROMBIN TIME (PATIENT) 16.7 SEC (9.7-13.0)
[2022-03-21 18:42] LABS: ACTIVATED PTT 32.5 SECONDS (25.2-36.5)
[2022-03-21 18:54] LABS: CHLORIDE 105 mmol/L (98-107); SODIUM 137 mmol/L (136-145)
[2022-03-21 18:56] LABS: ALBUMIN 3.3 g/dl (3.4-5.0); ANION GAP 8 MMOL/L (8-16); BLOOD UREA NITROGEN 47.5 mg/dL (7-18); CALCIUM 8.7 mg/dL (8.5-10.1); CO2 24 mmol/L (21-32); GLUCOSE,RANDOM 180 mg/dL (74-106)
[2022-03-21 18:59] LABS: SGOT/AST 20 U/L (15-37); SGPT/ALT 19 U/L (13-61)
[2022-03-21 19:01] LABS: BILIRUBIN,TOTAL 0.6 mg/dL (0.2-1); TOT PROT 6.7 g/dl (6.4-8.2)
[2022-03-21 19:02] LABS: ALK PHOS 109 U/L (45-117); CREATININE 8.4 mg/dL (0.55-1.3)
[2022-03-21] MEDS ORDERED: AZITHROMYCIN IVPB 500 MG in DEXTROSE 5%-WATER - 250 ML IVPB ONE (19:31)
[2022-03-21] MEDS ORDERED: CEFTRIAXONE 1,000 MG in DEXTROSE 5%-WATER - 50 ML IVPB ONE (19:31)
[2022-03-21] MEDS ORDERED: AZITHROMYCIN IVPB 500 MG/250 ML BAG IVPB ONE (19:45)
[2022-03-21] MEDS ORDERED: CEFTRIAXONE 1 GM/50 ML BAG ONE (19:45)
[2022-03-21] MEDS ORDERED: INSULIN (NOVOLOG) ASPART 100 UNITS/ML 10ML VIAL ONE (22:31)
[2022-03-21] MEDS: ROSUVASTATIN CA 5 MG TABLET PO SCH (22:46)
[2022-03-21] MEDS: APIXABAN 5 MG TABLET PO SCH (22:46)
[2022-03-21] MEDS: INSULIN SLIDING SCALE (NOVOLOG) 1 VIAL SQ SCH (22:49)
[2022-03-22 01:20] VITALS: BMI 32.2
[2022-03-22] MEDS: INSULIN SLIDING SCALE (NOVOLOG) 1 VIAL SQ SCH ×4 (06:13→21:33)
[2022-03-22 08:30] LABS: HEMATOCRIT 31.2 % (35.4-49); HEMOGLOBIN 10.1 GM/dL (11.7-16.9); MCH 29.9 pg (25.7-33.7); MCHC 32.3 g/dl (32.0-35.9); MEAN CELL VOLUME 92.5 fl (80-96); MEAN PLT VOLUME 8.3 fl (7.5-11.1); PLATELET COUNT 117 10^3/uL (134-434); RBC 3.38 M/mm3 (4.00-5.60); RDW 15.9 % (11.9-15.9); WHITE BLOOD COUNT 13.8 K/mm3 (4.0-10.0)
[2022-03-22] MEDS ORDERED: SODIUM CHLORIDE 250 ML IV PRN (08:30)
[2022-03-22 08:46] LABS: CHLORIDE 102 mmol/L (98-107); SODIUM 136 mmol/L (136-145)
[2022-03-22 08:48] LABS: CALCIUM 8.9 mg/dL (8.5-10.1)
[2022-03-22 08:49] LABS: ANION GAP 10 MMOL/L (8-16); BLOOD UREA NITROGEN 57.2 mg/dL (7-18); CO2 24 mmol/L (21-32); GLUCOSE,RANDOM 127 mg/dL (74-106); MAGNESIUM 1.5 mg/dL (1.8-2.4)
[2022-03-22 09:15] LABS: CREATININE 9.3 mg/dL (0.55-1.3)
[2022-03-22] MEDS: CEFTRIAXONE 1 GM in DEXTROSE 5%-WATER - 50 ML IVPB SCH (09:54)
[2022-03-22] MEDS: AZITHROMYCIN IVPB 500 MG/250 ML BAG IVPB SCH (09:56)
[2022-03-22] MEDS: ASPIRIN 81 MG CHEWABLE TABLETS PO SCH (09:58)
[2022-03-22] MEDS ORDERED: hydrALAZINE HCL 10 MG TABLET PO SCH (10:00)
[2022-03-22] MEDS ORDERED: LEVALBUTEROL HCL 0.31 MG/3 ML VIAL.NEB IH PRN (14:39)
[2022-03-22] MEDS: APIXABAN 5 MG TABLET PO SCH ×2 (15:25→21:30)
[2022-03-22] MEDS ORDERED: VANCOMYCIN/WATER FOR INJ (PEG) 1,000 MG/200 ML BAG IVPB ONE (19:00)
[2022-03-22] MEDS: ROSUVASTATIN CA 5 MG TABLET PO SCH (21:30)
[2022-03-23] MEDS: INSULIN SLIDING SCALE (NOVOLOG) 1 VIAL SQ SCH ×4 (06:00→21:45)
[2022-03-23] MEDS: CEFTRIAXONE 1 GM in DEXTROSE 5%-WATER - 50 ML IVPB SCH (09:36)
[2022-03-23] MEDS: APIXABAN 5 MG TABLET PO SCH ×2 (09:36→21:25)
[2022-03-23] MEDS: ASPIRIN 81 MG CHEWABLE TABLETS PO SCH (09:36)
[2022-03-23] MEDS: FUROSEMIDE 40 MG TABLET (FP) PO SCH (09:39)
[2022-03-23] MEDS: AZITHROMYCIN IVPB 500 MG/250 ML BAG IVPB SCH (09:40)
[2022-03-23] MEDS: ROSUVASTATIN CA 5 MG TABLET PO SCH (21:25)
[2022-03-24 06:16] VITALS: PULSE 104; RESP 18
[2022-03-24] MEDS: INSULIN SLIDING SCALE (NOVOLOG) 1 VIAL SQ SCH ×2 (06:36→12:47)
[2022-03-24] MEDS: ASPIRIN 81 MG CHEWABLE TABLETS PO SCH (09:22)
[2022-03-24] MEDS: APIXABAN 5 MG TABLET PO SCH (09:22)
[2022-03-24] MEDS: CEFTRIAXONE 1 GM in DEXTROSE 5%-WATER - 50 ML IVPB SCH (09:22)
[2022-03-24] MEDS: FUROSEMIDE 40 MG TABLET (FP) PO SCH (09:22)
[2022-03-24 10:10] VITALS: BP 155/84; TEMP 98.7
[2022-03-24] MEDS: AZITHROMYCIN IVPB 500 MG/250 ML BAG IVPB SCH (10:33)
== END 2022-03-24 14:30 | disposition home or self-care (01) | DRG 193 ==
LOC: JER 16:00 → JERBED 19:59 → J4W 22:12
PROVIDERS: ADMIT Internal Medicine; ATTEND Family Medicine
PROC: 5A1D70Z Performance of Urinary Filtration, Intermittent, Less than 6 Hours Per Day (ICD-10-PCS; principal; 2022-03-22)
DX: J18.9 Pneumonia, unspecified organism (principal); I21.4 Non-ST elevation (NSTEMI) myocardial infarction; N18.6 End stage renal disease; I12.0 Hypertensive chronic kidney disease with stage 5 chronic kidney disease or end stage renal disease; I48.19 Other persistent atrial fibrillation; I24.8 Other forms of acute ischemic heart disease; E11.22 Type 2 diabetes mellitus with diabetic chronic kidney disease; Z99.2 Dependence on renal dialysis; I48.91 Unspecified atrial fibrillation; J44.9 Chronic obstructive pulmonary disease, unspecified; D64.9 Anemia, unspecified; E87.5 Hyperkalemia; D72.829 Elevated white blood cell count, unspecified; R91.1 Solitary pulmonary nodule; R07.81 Pleurodynia; R77.8 Other specified abnormalities of plasma proteins; E11.51 Type 2 diabetes mellitus with diabetic peripheral angiopathy without gangrene; L60.3 Nail dystrophy
CPT/HCPCS: 0241U-QW; 36415; 71045-TC-FY; 71250-TC; 80048; 80053; 82550; 82962; 83735; 84484; 85025; 85027; 85610; 85730; 86803; 87040; 87340; 93005; 93010; 99285-25

== ENCOUNTER 2022-07-02 04:01 | Day surgery (SDC) | payer OTHER, MEDICARE ==
[2022-06-28 14:44] VITALS: BMI 31.8
[~2022-07-02 04:01] MED LIST: DEXAMETHASONE SOD PHOSPHATE 10 MG/1 ML VIAL IM ONE; DEXAMETHASONE SOD PHOSPHATE 4 MG/1 ML VIAL IM ONE; IOHEXOL 180 MG/1 ML ML IJ ONE; LIDOCAINE 1% P/F 10 MG/ML VIAL INF ONE
[2022-07-02] MEDS ORDERED: LIDOCAINE HCL/PF 1% SDV 5ML VIAL ONE (08:21)
[2022-07-02] MEDS ORDERED: DEXAMETHASONE SOD PHOSPHATE 10 MG/1 ML VIAL ONE (08:22)
[2022-07-02] MEDS ORDERED: ACETAMINOPHEN 500 MG TABLET (FP) PO PRN (10:41)
[2022-07-02 11:31] VITALS: RESP 20
[2022-07-02] MEDS ORDERED: DEXAMETHASONE SOD PHOSPHATE 10 MG/1 ML VIAL IM ONE (12:01)
[2022-07-02] MEDS ORDERED: LIDOCAINE 1% P/F 10 MG/ML VIAL INF ONE (12:01)
[2022-07-02 12:44] VITALS: BP 175/82; PULSE 78; TEMP 97.8
== END 2022-07-02 12:31 | disposition home or self-care (01) ==
LOC: JASU-SURG 04:01
PROVIDERS: ATTEND Pain Medicine Pain Medicine
PROC: 3E0R3BZ Introduction of Anesthetic Agent into Spinal Canal, Percutaneous Approach (ICD-10-PCS; 2022-07-02)
PROC: 3E0R33Z Introduction of Anti-inflammatory into Spinal Canal, Percutaneous Approach (ICD-10-PCS; principal; 2022-07-02 12:30)
DX: M48.061 Spinal stenosis, lumbar region without neurogenic claudication (principal); M54.16 Radiculopathy, lumbar region
CPT/HCPCS: 76000-TC-FY; J1100

== ENCOUNTER 2022-07-24 12:05 | Emergency (ER) | payer OTHER, MEDICARE ==
[2022-07-24 12:14] VITALS: RESP 16; TEMP 98; BMI 31.9
[2022-07-24] MEDS ORDERED: hydrALAZINE HCL 50 MG TABLET (FP) PO ONE (13:04)
[2022-07-24 13:22] VITALS: BP 184/93; PULSE 85
[2022-07-24] MEDS ORDERED: hydrALAZINE HCL 50 MG TABLET (FP) ONE (13:22)
== END 2022-07-24 13:30 | disposition home or self-care (01) ==
LOC: JER 12:05
DX: I12.0 Hypertensive chronic kidney disease with stage 5 chronic kidney disease or end stage renal disease (principal); E11.22 Type 2 diabetes mellitus with diabetic chronic kidney disease; N18.6 End stage renal disease; T82.838A Hemorrhage due to vascular prosthetic devices, implants and grafts, initial encounter; Y83.1 Surgical operation with implant of artificial internal device as the cause of abnormal reaction of the patient, or of later complication, without mention of misadventure at the time of the procedure
CPT/HCPCS: 99283-25

== ENCOUNTER 2023-05-19 12:54 | Inpatient (IN) | payer OTHER, MEDICARE ==
[2023-05-19 15:30] LABS: BASO % 1.1 % (0-2.0); EOS % 1.1 % (0-4.5); HEMATOCRIT 33.1 % (35.4-49); HEMOGLOBIN 10.7 GM/dL (11.7-16.9); LYMPH % 13.6 % (8-40); MCH 29.9 pg (25.7-33.7); MCHC 32.1 g/dl (32.0-35.9); MEAN PLT VOLUME 8.2 fl (7.5-11.1); MONO % 6.1 % (3.8-10.2); NEUT % 78.1 % (42.8-82.8); PLATELET COUNT 115 10^3/uL (134-434); RBC 3.56 M/mm3 (4.00-5.60); RDW 15.2 % (11.9-15.9); WHITE BLOOD COUNT 5.1 K/mm3 (4.0-10.0)
[2023-05-19 15:58] LABS: POTASSIUM 4.2 mmol/L (3.5-5.1)
[2023-05-19 16:00] LABS: ALBUMIN 2.7 g/dl (3.4-5.0); CALCIUM 8.6 mg/dL (8.5-10.1); MAGNESIUM 1.8 mg/dL (1.8-2.4)
[2023-05-19 16:03] LABS: PHOSPHOROUS 2.9 mg/dL (2.5-4.9)
[2023-05-19 16:05] LABS: BILIRUBIN,TOTAL 1.5 mg/dL (0.2-1); TOT PROT 6.3 g/dl (6.4-8.2)
[2023-05-19 20:20] VITALS: BMI 26.0
[2023-05-19] MEDS: GABAPENTIN 100 MG CAPSULE PO SCH (21:37)
[2023-05-19] MEDS: APIXABAN 5 MG TABLET PO SCH (21:37)
[2023-05-19] MEDS: INSULIN ASPART SLIDING SCALE (NOVOLOG) 1 VIAL SQ SCH (21:37)
[2023-05-19] MEDS ORDERED: ROSUVASTATIN CA 5 MG TABLET PO SCH ×2 (22:00)
[2023-05-20 05:53] VITALS: RESP 18
[2023-05-20 07:11] LABS: BASO % 0.7 % (0-2.0); EOS % 1.9 % (0-4.5); HEMOGLOBIN 10.7 GM/dL (11.7-16.9); LYMPH % 20.6 % (8-40); MCH 30.1 pg (25.7-33.7); MCHC 32.4 g/dl (32.0-35.9); MEAN CELL VOLUME 92.8 fl (80-96); MEAN PLT VOLUME 8.2 fl (7.5-11.1); MONO % 6.1 % (3.8-10.2); NEUT % 70.7 % (42.8-82.8); PLATELET COUNT 112 10^3/uL (134-434); RBC 3.56 M/mm3 (4.00-5.60); RDW 15.2 % (11.9-15.9); WHITE BLOOD COUNT 5.1 K/mm3 (4.0-10.0)
[2023-05-20 07:33] LABS: POTASSIUM 4.8 mmol/L (3.5-5.1)
[2023-05-20 07:38] LABS: ALBUMIN 2.7 g/dl (3.4-5.0); BLOOD UREA NITROGEN 32.3 mg/dL (7-18); CALCIUM 8.9 mg/dL (8.5-10.1)
[2023-05-20 07:42] LABS: BILIRUBIN,TOTAL 1.4 mg/dL (0.2-1); TOT PROT 6.2 g/dl (6.4-8.2)
[2023-05-20 07:48] LABS: CREATININE 7.4 mg/dL (0.55-1.3)
[2023-05-20] MEDS: CALCIUM ACETATE 667 MG CAPSULE (FP) PO SCH (08:58)
[2023-05-20] MEDS: FUROSEMIDE 40 MG TABLET (FP) PO SCH (09:12)
[2023-05-20] MEDS: CEFTRIAXONE 1 GM in DEXTROSE 5%-WATER - 50 ML IVPB SCH (09:12)
[2023-05-20] MEDS: METOPROLOL TARTRATE 50 MG TABLET (FP) PO SCH (09:12)
[2023-05-20] MEDS: PANTOPRAZOLE 20 MG TABLET PO SCH (09:12)
[2023-05-20] MEDS: FLUTICASONE/UMECLIDIN/VILANTER(100-62.5-25 TRELEGY ELLIPTA) INAHLER IH SCH (09:13)
[2023-05-20] MEDS ORDERED: hydrALAZINE HCL 50 MG TABLET (FP) PO SCH ×2 (10:00)
[2023-05-20 11:10] LABS: BILIRUBIN,DIRECT 0.9 mg/dL (0.0-0.2)
[2023-05-20] MEDS ORDERED: SODIUM CHLORIDE 250 ML IV PRN (12:58)
[2023-05-20 16:00] VITALS: BP 165/47; PULSE 99; TEMP 97.3
[2023-05-20] MEDS ORDERED: PIPERACILLIN/TAZOB 2.25 GM 2.25 GM in DEXTROSE 5%-WATER - 50 ML IVPB SCH (18:00)
[2023-05-21] MEDS ORDERED: CEFTRIAXONE 1 GM in DEXTROSE 5%-WATER - 50 ML IVPB SCH (10:00)
== END 2023-05-20 18:32 | disposition home or self-care (01) | DRG 308 ==
LOC: JER 12:54 → JERBED 15:49 → J4W 18:16 → OBSVTOIN 05-20 10:10
PROVIDERS: ADMIT Internal Medicine; ATTEND Internal Medicine
DX: I48.19 Other persistent atrial fibrillation (principal); N18.6 End stage renal disease; I13.2 Hypertensive heart and chronic kidney disease with heart failure and with stage 5 chronic kidney disease, or end stage renal disease; I50.9 Heart failure, unspecified; I27.20 Pulmonary hypertension, unspecified; E11.51 Type 2 diabetes mellitus with diabetic peripheral angiopathy without gangrene; J44.9 Chronic obstructive pulmonary disease, unspecified; E78.00 Pure hypercholesterolemia, unspecified; I25.10 Atherosclerotic heart disease of native coronary artery without angina pectoris; E87.5 Hyperkalemia; D64.9 Anemia, unspecified; E83.118 Other hemochromatosis; K80.20 Calculus of gallbladder without cholecystitis without obstruction; E11.22 Type 2 diabetes mellitus with diabetic chronic kidney disease; Z99.2 Dependence on renal dialysis
CPT/HCPCS: 0241U-QW; 36415; 71046-TC-FY; 71250-TC; 80053; 82248; 82550; 82728; 82962; 82977; 83540; 83550; 83735; 84100; 84484; 85025; 87340; 87902; 93005; 93010; 99285-25; G0378

== ENCOUNTER 2023-10-16 08:46 | Emergency (ER) | payer OTHER, MEDICARE ==
[2023-10-16 08:51] VITALS: BP 152/80; PULSE 94; RESP 18; TEMP 97.9; BMI 25.0
[2023-10-16] MEDS: VANCOMYCIN 1,000 MG in DEXTROSE 5%-WATER - 250 ML IVPB ONE (09:32)
[2023-10-16] MEDS ORDERED: DALBAVANCIN HCL 500 MG VIAL (RESTRICTED TO ID ONLY) IVPB ONE (10:09)
[2023-10-16] MEDS: DALBAVANCIN HCL 1,500 MG in DEXTROSE 5%-WATER - 500 ML IVPB ONE (10:20)
[2023-10-16 10:23] LABS: BASO % 0.5 % (0-2.0); EOS % 2.2 % (0-4.5); HEMOGLOBIN 12.7 GM/dL (11.7-16.9); LYMPH % 10.2 % (8-40); MCH 31.3 pg (25.7-33.7); MCHC 33.4 g/dl (32.0-35.9); MEAN CELL VOLUME 93.7 fl (80-96); MEAN PLT VOLUME 7.1 fl (7.5-11.1); MONO % 6.6 % (3.8-10.2); NEUT % 80.5 % (42.8-82.8); PLATELET COUNT 176 10^3/uL (134-434); RBC 4.06 M/mm3 (4.00-5.60); RDW 15.9 % (11.9-15.9); WHITE BLOOD COUNT 7.1 K/mm3 (4.0-10.0)
[2023-10-16 10:34] LABS: CHLORIDE 105 mmol/L (98-107); POTASSIUM 5.4 mmol/L (3.5-5.1); SODIUM 138 mmol/L (136-145)
[2023-10-16 10:36] LABS: ALBUMIN 3.2 g/dl (3.4-5.0); ANION GAP 8 mmol/L (4-13); BLOOD UREA NITROGEN 41.5 mg/dL (7-18); CALCIUM 9.4 mg/dL (8.5-10.1); CO2 25 mmol/L (21-32); GLUCOSE,RANDOM 145 mg/dL (74-106)
[2023-10-16 10:39] LABS: SGOT/AST 14 U/L (15-37); SGPT/ALT 9 U/L (13-61)
[2023-10-16 10:40] LABS: CREATININE 7.9 mg/dL (0.55-1.3)
[2023-10-16 10:41] LABS: BILIRUBIN,TOTAL 0.5 mg/dL (0.2-1); TOT PROT 7.1 g/dl (6.4-8.2)
[2023-10-16 10:42] LABS: ALK PHOS 103 U/L (45-117)
[2023-10-16 11:04] LABS: ERYTHROCYTE SEDIMENTATION RATE 50 mm/hr (0-20)
== END 2023-10-16 11:30 | disposition left against medical advice (07) ==
LOC: JER 08:46
DX: S91.301A Unspecified open wound, right foot, initial encounter (principal); X50.1XXA Overexertion from prolonged static or awkward postures, initial encounter
CPT/HCPCS: 36415; 80053; 85025; 85651; 86140; 87040; 93005; 93010; 99284-25; G0463-25; J0875

== ENCOUNTER 2024-02-11 04:25 | Day surgery (SDC) | payer OTHER, MEDICARE ==
[2024-02-10 09:48] VITALS: BMI 25.0
[2024-02-11] MEDS ORDERED: LIDOCAINE HCL 1%, 10 MG/ML (20ML VIAL) ONE (07:22)
[2024-02-11] MEDS ORDERED: BUPIVACAINE HCL/PF 0.5% (5MG/ML) 10 ML VIAL ONE (07:22)
[2024-02-11] MEDS ORDERED: MIDAZOLAM HCL 2 MG/2 ML SINGLE DOSE VIAL ONE (08:07)
[2024-02-11] MEDS ORDERED: PROPOFOL 20 ML ONE ×2 (08:10→08:13)
[2024-02-11] MEDS: AMPICILLIN NA/SULBACTAM NA 3 GM VIAL IVPB ONE ×2 (08:15)
[2024-02-11] MEDS: LIDOCAINE HCL 1%, 10 MG/ML (20ML VIAL) NR ONE ×3 (08:24)
[2024-02-11] MEDS ORDERED: VANCOMYCIN 1,000 MG VIAL (RESTRICTED TO ID ONLY) ONE (08:36)
[2024-02-11] MEDS ORDERED: ACETAMINOPHEN 325 MG TABLET (FP) PO PRN (08:56)
[2024-02-11] MEDS ORDERED: ONDANSETRON 4 MG/2 ML VIAL IVPUSH PRN (09:04)
[2024-02-11] MEDS ORDERED: SODIUM CHLORIDE 1,000 ML IV SCH (10:00)
[2024-02-11] MEDS ORDERED: AMPICILLIN NA/SULBACTAM NA 1.5 GM in SODIUM CHLORIDE 100 ML IVPB SCH (10:32)
[2024-02-11] MEDS: LACTATED RINGERS SOLUTION 1,000 ML IV SCH (11:02)
[2024-02-11] MEDS: AMPICILLIN NA/SULBACTAM NA 1.5 GM in SODIUM CHLORIDE 100 ML IVPB SCH ×2 (11:02→22:12)
[2024-02-11] MEDS: PANTOPRAZOLE 20 MG TABLET PO SCH (12:07)
[2024-02-11] MEDS: GABAPENTIN 100 MG CAPSULE PO SCH (12:07)
[2024-02-11] MEDS: ASCORBIC ACID 500 MG TABLET (FP) PO SCH (12:08)
[2024-02-11] MEDS: CALCIUM ACETATE 667 MG CAPSULE (FP) PO SCH (12:10)
[2024-02-11] MEDS: AMIODARONE HCL 200 MG TABLET PO SCH (12:10)
[2024-02-11] MEDS: FUROSEMIDE 40 MG TABLET (FP) PO SCH (13:55)
[2024-02-11] MEDS: AMPICILLIN NA/SULBACTAM NA 3 GM in SODIUM CHLORIDE 100 ML IVPB ONE (14:00)
[2024-02-11] MEDS: CHOLECALCIFEROL (VIT D3) 5000 UNITS (125 MCG) CAP PO SCH (17:48)
[2024-02-11 17:57] VITALS: RESP 18
[2024-02-11] MEDS: oxyCODONE HCL 5 MG TABLET PO PRN (22:13)
[2024-02-12 09:37] LABS: HEMOGLOBIN 9.5 GM/dL (11.7-16.9); MCH 29.8 pg (25.7-33.7); MCHC 31.8 g/dl (32.0-35.9); MEAN CELL VOLUME 93.8 fl (80-96); MEAN PLT VOLUME 7.4 fl (7.5-11.1); PLATELET COUNT 129 10^3/uL (134-434); RDW 15.9 % (11.9-15.9); WHITE BLOOD COUNT 4.2 K/mm3 (4.0-10.0)
[2024-02-12 09:58] LABS: CHLORIDE 98 mmol/L (98-107); POTASSIUM 5.7 mmol/L (3.5-5.1); SODIUM 135 mmol/L (136-145)
[2024-02-12] MEDS ORDERED: SODIUM CHLORIDE 250 ML IV PRN (10:07)
[2024-02-12 10:12] LABS: ALBUMIN 2.7 g/dl (3.4-5.0); ANION GAP 7 mmol/L (4-13); BLOOD UREA NITROGEN 48.2 mg/dL (7-18); CALCIUM 8.6 mg/dL (8.5-10.1); CO2 29 mmol/L (21-32); GLUCOSE,RANDOM 135 mg/dL (74-106)
[2024-02-12 10:13] LABS: SGOT/AST 11 U/L (15-37); SGPT/ALT 12 U/L (13-61)
[2024-02-12 10:15] LABS: BILIRUBIN,TOTAL 0.5 mg/dL (0.2-1); TOT PROT 6.1 g/dl (6.4-8.2)
[2024-02-12 10:16] LABS: ALK PHOS 87 U/L (45-117)
[2024-02-12] MEDS: SODIUM ZIRCONIUM CYCLOSILICATE (LOKELMA) 5 GM PACKET PO SCH (16:51)
[2024-02-13 09:01] LABS: CHLORIDE 99 mmol/L (98-107); POTASSIUM 5.3 mmol/L (3.5-5.1); SODIUM 135 mmol/L (136-145)
[2024-02-13 09:02] LABS: CALCIUM 8.5 mg/dL (8.5-10.1)
[2024-02-13 09:03] LABS: ALBUMIN 2.6 g/dl (3.4-5.0); ANION GAP 10 mmol/L (4-13); BLOOD UREA NITROGEN 60.1 mg/dL (7-18); CO2 26 mmol/L (21-32); GLUCOSE,RANDOM 123 mg/dL (74-106)
[2024-02-13 09:06] LABS: SGOT/AST 13 U/L (15-37); SGPT/ALT 13 U/L (13-61)
[2024-02-13 09:07] LABS: BILIRUBIN,TOTAL 0.4 mg/dL (0.2-1)
[2024-02-13 09:08] LABS: TOT PROT 6.2 g/dl (6.4-8.2)
[2024-02-13 09:09] LABS: ALK PHOS 99 U/L (45-117); CREATININE 9.3 mg/dL (0.55-1.3)
[2024-02-13 09:30] VITALS: TEMP 98.4
[2024-02-13] MEDS: EPOETIN ALFA-EPBX 10,000 UNIT/ML VIAL IVPUSH ONE (11:35)
[2024-02-13 13:31] VITALS: PULSE 80
[2024-02-13 13:32] VITALS: BP 163/86
== END 2024-02-13 15:29 | disposition home health service (06) ==
LOC: JASUSAT 04:25 → SUATTDRO 04:25 → J2C 04:25 → UNDOADMIN 04:25 → EDSTATUS 08:00 → J5S 10:33 → JASUSAT 02-13 15:29
PROVIDERS: ATTEND Family Medicine
PROC: 0QBQ0ZZ Excision of Right Toe Phalanx, Open Approach (ICD-10-PCS; 2024-02-11)
PROC: 0Y6P0Z1 Detachment at Right 1st Toe, High, Open Approach (ICD-10-PCS; principal; 2024-02-11 08:00)
DX: M86.9 Osteomyelitis, unspecified (principal)
CPT/HCPCS: 36415; 80053; 82962; 85027; 86704; 86803; 87340; 87517; 88305-TC; 88311-TC; 94760; 97116-GP; 97161-GP; Q5106

== ENCOUNTER 2024-04-19 09:45 | Inpatient (IN) | payer OTHER, MEDICARE ==
[2024-04-19 11:28] LABS: VENOUS BASE EXCESS 2.5 mmol/L (-2-2); VENOUS O2 SATURATION 22.8 % (70-80); VENOUS PCO2 44.2 mmHg (38-52); VENOUS PH 7.41 (7.310-7.410)
[2024-04-19 11:40] LABS: HEMATOCRIT 25.9 % (35.4-49); MCH 27.4 pg (25.7-33.7); MCHC 30.7 g/dl (32.0-35.9); MEAN CELL VOLUME 89.3 fl (80-96); MEAN PLT VOLUME 7.1 fl (7.5-11.1); PLATELET COUNT 330 10^3/uL (134-434); RDW 17.1 % (11.9-15.9)
[2024-04-19 11:49] LABS: POTASSIUM 4.9 mmol/L (3.5-5.1)
[2024-04-19 11:51] LABS: CALCIUM 8.3 mg/dL (8.5-10.1)
[2024-04-19 11:52] LABS: BLOOD UREA NITROGEN 26.4 mg/dL (7-18)
[2024-04-19 11:55] LABS: CREATININE 4.1 mg/dL (0.55-1.3)
[2024-04-19 11:56] LABS: BILIRUBIN,TOTAL 2.2 mg/dL (0.2-1)
[2024-04-19 11:57] LABS: TOT PROT 7.4 g/dl (6.4-8.2)
[2024-04-19 12:59] LABS: BILIRUBIN,DIRECT 0.8 mg/dL (0.0-0.2)
[2024-04-19 13:12] LABS: ANISOCYTOSIS 0; MACROCYTOSIS 0
[2024-04-19] MEDS ORDERED: PIPERACILLIN/TAZOB 4.5 GM 4.5 GM/100 ML BAG IVPB ONE (14:04)
[2024-04-19] MEDS: PIPERACILLIN/TAZOB 4.5 GM 4.5 GM in DEXTROSE 5%-WATER 100 ML IVPB ONE (14:32)
[2024-04-19] MEDS: SODIUM CHLORIDE 0.9% 500 ML INFUS.BAG IV ONE (14:32)
[2024-04-19] MEDS ORDERED: oxyCODONE HCL 5 MG TABLET PO PRN (14:54)
[2024-04-19] MEDS ORDERED: DOCUSATE SODIUM 100 MG CAPSULE (FP) PO PRN (14:54)
[2024-04-19 17:17] LABS: HEMATOCRIT 22.1 % (35.4-49); MCH 27.6 pg (25.7-33.7); MCHC 31.3 g/dl (32.0-35.9); MEAN CELL VOLUME 88.3 fl (80-96); MEAN PLT VOLUME 6.9 fl (7.5-11.1); PLATELET COUNT 201 10^3/uL (134-434); WHITE BLOOD COUNT 13.3 K/mm3 (4.0-10.0)
[2024-04-19 17:20] LABS: HEMOGLOBIN 6.9 GM/dL (11.7-16.9)
[2024-04-19 17:28] LABS: POTASSIUM 4.4 mmol/L (3.5-5.1)
[2024-04-19 17:29] LABS: BLOOD UREA NITROGEN 32.7 mg/dL (7-18)
[2024-04-19 17:30] LABS: ALBUMIN 1.8 g/dl (3.4-5.0); CALCIUM 7.8 mg/dL (8.5-10.1)
[2024-04-19 17:33] LABS: CREATININE 4.7 mg/dL (0.55-1.3)
[2024-04-19 17:35] LABS: TOT PROT 6.2 g/dl (6.4-8.2)
[2024-04-19] MEDS: INSULIN ASPART SLIDING SCALE (NOVOLOG) 1 VIAL SQ SCH (18:30)
[2024-04-19] MEDS: CALCIUM ACETATE 667 MG CAPSULE (FP) PO SCH (19:23)
[2024-04-19 21:03] LABS: HEMATOCRIT 20.3 % (35.4-49); MCH 27.7 pg (25.7-33.7); MCHC 31.4 g/dl (32.0-35.9); MEAN CELL VOLUME 88.1 fl (80-96); MEAN PLT VOLUME 7.2 fl (7.5-11.1); PLATELET COUNT 203 10^3/uL (134-434); RBC 2.31 M/mm3 (4.00-5.60); RDW 17.2 % (11.9-15.9); WHITE BLOOD COUNT 15.6 K/mm3 (4.0-10.0)
[2024-04-19 21:09] LABS: HEMOGLOBIN 6.4 GM/dL (11.7-16.9)
[2024-04-19] MEDS ORDERED: APIXABAN 2.5 MG TABLET PO SCH (22:00)
[2024-04-19] MEDS ORDERED: ACETAMINOPHEN 325 MG TABLET (FP) ONE (23:03)
[2024-04-20] MEDS: LIDOCAINE PATCH REMOVAL MC SCH (00:01)
[2024-04-20] MEDS: ALBUTEROL SULFATE 0.021% (0.63 MG/3 ML) VIAL.NEB NEB SCH (00:35)
[2024-04-20] MEDS ORDERED: PIPERACILLIN/TAZOB 4.5 GM 4.5 GM/100 ML BAG IVPB ONE ×3 (00:37→21:10)
[2024-04-20] MEDS ORDERED: PANTOPRAZOLE SODIUM 40 MG VIAL ONE ×3 (00:37→21:10)
[2024-04-20] MEDS: PANTOPRAZOLE SODIUM 40 MG VIAL IVPUSH SCH (00:52)
[2024-04-20] MEDS: PIPERACILLIN/TAZOB 4.5 GM 4.5 GM in DEXTROSE 5%-WATER 100 ML IVPB SCH (00:52)
[2024-04-20] MEDS: MINERAL OIL/PET HY-PHL TOPICAL OINTMENT 454 GM JAR TP SCH (00:52)
[2024-04-20] MEDS ORDERED: VANCOMYCIN 1 GM PREMIX (F) 1 GM/200 ML BAG ONE (01:33)
[2024-04-20 02:08] LABS: HEMATOCRIT 22.4 % (35.4-49); HEMOGLOBIN 7.1 GM/dL (11.7-16.9); MCHC 31.6 g/dl (32.0-35.9); MEAN CELL VOLUME 88.8 fl (80-96); MEAN PLT VOLUME 7.7 fl (7.5-11.1); PLATELET COUNT 195 10^3/uL (134-434); RBC 2.52 M/mm3 (4.00-5.60); RDW 17.2 % (11.9-15.9); WHITE BLOOD COUNT 14.1 K/mm3 (4.0-10.0)
[2024-04-20] MEDS: VANCOMYCIN/WATER FOR INJ (PEG) 1,000 MG/200 ML BAG IVPB ONE (02:33)
[2024-04-20] MEDS ORDERED: LIDOCAINE 4% PATCH TP ONE (09:06)
[2024-04-20] MEDS ORDERED: FUROSEMIDE 20 MG TABLET (FP) ONE (09:06)
[2024-04-20] MEDS ORDERED: AMIODARONE HCL 200 MG TABLET ONE (09:06)
[2024-04-20] MEDS ORDERED: SERTRALINE HCL 50 MG TABLET (FP) ONE (09:06)
[2024-04-20] MEDS: AMIODARONE HCL 200 MG TABLET PO SCH (09:23)
[2024-04-20] MEDS: SERTRALINE HCL 25 MG TABLET (FP) PO SCH (09:24)
[2024-04-20] MEDS: FUROSEMIDE 20 MG TABLET (FP) PO SCH (09:24)
[2024-04-20] MEDS: LIDOCAINE 5% TOPICAL PATCH TP SCH (09:24)
[2024-04-20] MEDS ORDERED: ASPIRIN COATED 81 MG TABLET.EC PO SCH (10:00)
[2024-04-20] MEDS ORDERED: CLOPIDOGREL BISULFATE 75 MG TABLET (FP) PO SCH (10:00)
[2024-04-20] MEDS ORDERED: PANTOPRAZOLE 40 MG TABLET PO SCH (10:00)
[2024-04-20] MEDS: DEXTROSE 5%-NORMAL SALINE 1,000 ML IV SCH (10:13)
[2024-04-20 10:25] LABS: HEMATOCRIT 23.5 % (35.4-49); HEMOGLOBIN 7.5 GM/dL (11.7-16.9); MCH 27.9 pg (25.7-33.7); MCHC 32.1 g/dl (32.0-35.9); MEAN CELL VOLUME 87.2 fl (80-96); MEAN PLT VOLUME 7.4 fl (7.5-11.1); PLATELET COUNT 201 10^3/uL (134-434); RDW 17.5 % (11.9-15.9); WHITE BLOOD COUNT 11.9 K/mm3 (4.0-10.0)
[2024-04-20 10:50] LABS: HEMATOCRIT 24.6 % (35.4-49); HEMOGLOBIN 8.1 GM/dL (11.7-16.9); MCH 28.5 pg (25.7-33.7); MCHC 32.8 g/dl (32.0-35.9); MEAN PLT VOLUME 7.2 fl (7.5-11.1); PLATELET COUNT 192 10^3/uL (134-434); RBC 2.83 M/mm3 (4.00-5.60); RDW 17.5 % (11.9-15.9); WHITE BLOOD COUNT 10.9 K/mm3 (4.0-10.0)
[2024-04-20 10:57] LABS: INR 2.38 (0.83-1.09); PROTHROMBIN TIME (PATIENT) 26.2 SEC (9.7-13.0)
[2024-04-20 11:09] LABS: CHLORIDE 96 mmol/L (98-107); POTASSIUM 4.6 mmol/L (3.5-5.1); SODIUM 131 mmol/L (136-145)
[2024-04-20 11:12] LABS: ALBUMIN 1.8 g/dl (3.4-5.0); ANION GAP 10 mmol/L (4-13); CALCIUM 8.4 mg/dL (8.5-10.1); CO2 24 mmol/L (21-32); GLUCOSE,RANDOM 148 mg/dL (74-106)
[2024-04-20 11:15] LABS: SGOT/AST 506 U/L (15-37); SGPT/ALT 351 U/L (13-61)
[2024-04-20 11:16] LABS: BILIRUBIN,TOTAL 3.2 mg/dL (0.2-1); CREATININE 5.7 mg/dL (0.55-1.3); TOT PROT 6.3 g/dl (6.4-8.2)
[2024-04-20 11:20] LABS: BLOOD UREA NITROGEN 49.1 mg/dL (7-18)
[2024-04-20 11:25] LABS: ALK PHOS 475 U/L (45-117)
[2024-04-20 12:00] LABS: ANISOCYTOSIS 1+; MACROCYTOSIS 0; OVALOCYTE 1+
[2024-04-20 13:00] LABS: BILIRUBIN,DIRECT 2.7 mg/dL (0.0-0.2)
[2024-04-20 13:10] LABS: GAMMA GLUTAMYL TRANSPEPTIDASE 271 U/L (5-85)
[2024-04-20 13:14] LABS: IRON SERUM 62 ug/dL (50-175)
[2024-04-20 13:15] LABS: TOTAL IRON BINDING CAPACITY 93 ug/dL (250-450)
[2024-04-20] MEDS: PIPERACILLIN/TAZOB 4.5 GM 4.5 GM/100 ML BAG IVPB SCH (15:56)
[2024-04-20] MEDS ORDERED: ATORVASTATIN CA 20 MG TABLET (FP) ONE (22:13)
[2024-04-20] MEDS ORDERED: OSELTAMIVIR PHOSPHATE 30 MG CAPSULE ONE (22:13)
[2024-04-20] MEDS ORDERED: DONEPEZIL HCL 5 MG TABLET (FP) ONE (22:13)
[2024-04-20] MEDS ORDERED: GABAPENTIN 100 MG CAPSULE ONE (22:13)
[2024-04-20] MEDS ORDERED: HEPARIN NA (PORCINE) 5,000 UNITS/ML 1ML VIAL ONE (22:14)
[2024-04-21 08:04] LABS: HEMOGLOBIN 7.3 GM/dL (11.7-16.9); MCH 28.7 pg (25.7-33.7); MCHC 33.2 g/dl (32.0-35.9); MEAN CELL VOLUME 86.3 fl (80-96); MEAN PLT VOLUME 7.4 fl (7.5-11.1); PLATELET COUNT 198 10^3/uL (134-434); RBC 2.55 M/mm3 (4.00-5.60); RDW 17.5 % (11.9-15.9); WHITE BLOOD COUNT 7.6 K/mm3 (4.0-10.0)
[2024-04-21 08:15] LABS: INR 1.79 (0.83-1.09); PROTHROMBIN TIME (PATIENT) 19.5 SEC (9.7-13.0)
[2024-04-21 08:20] LABS: POTASSIUM 5.2 mmol/L (3.5-5.1)
[2024-04-21 08:23] LABS: CALCIUM 8.5 mg/dL (8.5-10.1)
[2024-04-21 08:27] LABS: ALBUMIN 1.7 g/dl (3.4-5.0); BLOOD UREA NITROGEN 62.6 mg/dL (7-18)
[2024-04-21 08:30] LABS: CREATININE 6.6 mg/dL (0.55-1.3)
[2024-04-21 08:31] LABS: BILIRUBIN,TOTAL 1.9 mg/dL (0.2-1)
[2024-04-21 08:32] LABS: TOT PROT 6.1 g/dl (6.4-8.2)
[2024-04-21] MEDS ORDERED: PIPERACILLIN/TAZOB 3.375 GM 3.375 GM/50 ML BAG IVPB ONE (09:32)
[2024-04-21] MEDS ORDERED: PIPERACILLIN/TAZOB 4.5 GM 4.5 GM/100 ML BAG IVPB ONE (09:36)
[2024-04-21] MEDS ORDERED: SODIUM CHLORIDE 250 ML IV PRN (09:38)
[2024-04-21] MEDS: EPOETIN ALFA-EPBX 10,000 UNIT, EPOETIN ALFA-EPBX 2,000 UNIT SQ ONE (11:16)
[2024-04-21] MEDS ORDERED: EPOETIN ALFA-EPBX 4,000 UNIT/ML VIAL SQ ONE (12:01)
[2024-04-21 14:08] LABS: MITOCHONDRIAL AB <20.0 Units (0.0-20.0)
[2024-04-21] MEDS: DEXTROSE 5%-0.45% SALINE 1,000 ML IV SCH (19:57)
[2024-04-22 18:39] LABS: ALBUMIN 1.7 g/dl (3.4-5.0)
[2024-04-22 18:42] LABS: BILIRUBIN,DIRECT 1.1 mg/dL (0.0-0.2)
[2024-04-22 18:44] LABS: BILIRUBIN,TOTAL 1.5 mg/dL (0.2-1); TOT PROT 6.2 g/dl (6.4-8.2)
[2024-04-22] MEDS ORDERED: SODIUM CHLORIDE 250 ML IV PRN (18:48)
[2024-04-22] MEDS: SODIUM ZIRCONIUM CYCLOSILICATE (LOKELMA) 5 GM PACKET PO SCH (19:14)
[2024-04-23 08:58] LABS: BASO % 0.5 % (0-2.0); HEMATOCRIT 24.5 % (35.4-49); LYMPH % 12.3 % (8-40); MCH 28.5 pg (25.7-33.7); MCHC 32.6 g/dl (32.0-35.9); MEAN CELL VOLUME 87.5 fl (80-96); MEAN PLT VOLUME 7.1 fl (7.5-11.1); NEUT % 82.2 % (42.8-82.8); PLATELET COUNT 182 10^3/uL (134-434); RBC 2.79 M/mm3 (4.00-5.60); RDW 17.8 % (11.9-15.9); WHITE BLOOD COUNT 5.4 K/mm3 (4.0-10.0)
[2024-04-23] MEDS ORDERED: BUPIVACAINE HCL/PF 0.25% (2.5MG/ML) 10 ML VIAL ONE (09:32)
[2024-04-23 09:38] LABS: POTASSIUM 3.9 mmol/L (3.5-5.1)
[2024-04-23 09:40] LABS: ALBUMIN 1.8 g/dl (3.4-5.0); BLOOD UREA NITROGEN 39.6 mg/dL (7-18)
[2024-04-23 09:43] LABS: CREATININE 6.2 mg/dL (0.55-1.3)
[2024-04-23 09:45] LABS: BILIRUBIN,TOTAL 1.3 mg/dL (0.2-1); TOT PROT 6.4 g/dl (6.4-8.2)
[2024-04-23] MEDS ORDERED: PROPOFOL 20 ML ONE (11:52)
[2024-04-23] MEDS ORDERED: SUCCINYLCHOLINE CHLORIDE 200 MG/10 ML SYRINGE ONE (11:53)
[2024-04-23] MEDS ORDERED: ROCURONIUM BROMIDE 50 MG/5 ML SYRINGE ONE (12:04)
[2024-04-23] MEDS: ceFAZolin SODIUM 1 GM VIAL IVPB ONE (12:10)
[2024-04-23] MEDS: BUPIVACAINE HCL/PF 0.5% (5MG/ML) 10 ML VIAL IJ ONE (12:10)
[2024-04-23] MEDS: BUPIVACAINE HCL/PF 0.25% (2.5MG/ML) 10 ML VIAL IJ ONE (12:30)
[2024-04-23] MEDS ORDERED: SUGAMMADEX SODIUM 200 MG/2 ML VIAL ONE (13:37)
[2024-04-23] MEDS ORDERED: ONDANSETRON 4 MG/2 ML VIAL IVPUSH PRN (14:17)
[2024-04-23] MEDS ORDERED: oxyCODONE HCL 5 MG TABLET PO PRN (14:30)
[2024-04-23] MEDS: ACETAMINOPHEN 1000 MG/100 ML BAG IVPB SCH ×2 (14:30→21:51)
[2024-04-23] MEDS ORDERED: SODIUM CHLORIDE 250 ML IV PRN (17:38)
[2024-04-23] MEDS ORDERED: EPOETIN ALFA-EPBX 10,000 UNIT/ML VIAL SQ ONE (18:48)
[2024-04-23] MEDS: ALBUTEROL SULFATE 0.021% (0.63 MG/3 ML) VIAL.NEB NEB SCH (20:55)
[2024-04-23] MEDS ORDERED: PIPERACILLIN/TAZOB 4.5 GM 4.5 GM/100 ML BAG IVPB SCH ×2 (21:00)
[2024-04-23] MEDS: PANTOPRAZOLE SODIUM 40 MG VIAL IVPUSH SCH (21:53)
[2024-04-23] MEDS ORDERED: LIDOCAINE PATCH REMOVAL MC SCH (22:00)
[2024-04-23] MEDS: INSULIN ASPART SLIDING SCALE (NOVOLOG) 1 VIAL SQ SCH (22:22)
[2024-04-23] MEDS: PIPERACILLIN/TAZOB 4.5 GM 4.5 GM/100 ML BAG IVPB SCH (22:23)
[2024-04-24] MEDS: oxyCODONE HCL 5 MG TABLET PO PRN (03:32)
[2024-04-24] MEDS: MINERAL OIL/PET HY-PHL TOPICAL OINTMENT 454 GM JAR TP SCH (06:18)
[2024-04-24] MEDS: LIDOCAINE PATCH REMOVAL MC SCH (06:18)
[2024-04-24] MEDS: CALCIUM ACETATE 667 MG CAPSULE (FP) PO SCH (08:37)
[2024-04-24] MEDS: FUROSEMIDE 20 MG TABLET (FP) PO SCH (09:23)
[2024-04-24] MEDS: SERTRALINE HCL 25 MG TABLET (FP) PO SCH (09:23)
[2024-04-24] MEDS: AMIODARONE HCL 200 MG TABLET PO SCH (09:23)
[2024-04-24] MEDS: LIDOCAINE 5% TOPICAL PATCH TP SCH (09:24)
[2024-04-24 09:59] LABS: BASO % 0.2 % (0-2.0); EOS % 0.1 % (0-4.5); HEMATOCRIT 19.3 % (35.4-49); LYMPH % 6.4 % (8-40); MCH 28.7 pg (25.7-33.7); MCHC 32.2 g/dl (32.0-35.9); MEAN CELL VOLUME 89.1 fl (80-96); MEAN PLT VOLUME 7.4 fl (7.5-11.1); MONO % 2.8 % (3.8-10.2); NEUT % 90.5 % (42.8-82.8); PLATELET COUNT 227 10^3/uL (134-434); RBC 2.16 M/mm3 (4.00-5.60); RDW 17.9 % (11.9-15.9); WHITE BLOOD COUNT 9.3 K/mm3 (4.0-10.0)
[2024-04-24 10:24] LABS: HEMOGLOBIN 6.2 GM/dL (11.7-16.9)
[2024-04-24 10:34] LABS: CALCIUM 7.7 mg/dL (8.5-10.1)
[2024-04-24 10:35] LABS: ALBUMIN 1.6 g/dl (3.4-5.0); BLOOD UREA NITROGEN 23.8 mg/dL (7-18)
[2024-04-24 10:38] LABS: CREATININE 4.6 mg/dL (0.55-1.3)
[2024-04-24 10:39] LABS: TOT PROT 5.5 g/dl (6.4-8.2)
[2024-04-24 10:48] LABS: BILIRUBIN,TOTAL 1.2 mg/dL (0.2-1)
[2024-04-24] MEDS: ACETAMINOPHEN 1000 MG/100 ML BAG IVPB ONE (20:03)
[2024-04-25 10:08] LABS: BASO % 0.7 % (0-2.0); EOS % 0.9 % (0-4.5); HEMATOCRIT 20.4 % (35.4-49); LYMPH % 8.7 % (8-40); MCH 29.2 pg (25.7-33.7); MCHC 32.5 g/dl (32.0-35.9); MEAN CELL VOLUME 89.7 fl (80-96); MEAN PLT VOLUME 7.3 fl (7.5-11.1); MONO % 3.3 % (3.8-10.2); NEUT % 86.4 % (42.8-82.8); PLATELET COUNT 227 10^3/uL (134-434); RBC 2.27 M/mm3 (4.00-5.60); RDW 17.1 % (11.9-15.9); WHITE BLOOD COUNT 9.2 K/mm3 (4.0-10.0)
[2024-04-25 10:17] LABS: HEMOGLOBIN 6.6 GM/dL (11.7-16.9)
[2024-04-25 10:24] LABS: ALBUMIN 1.7 g/dl (3.4-5.0); BLOOD UREA NITROGEN 31.7 mg/dL (7-18); CALCIUM 7.9 mg/dL (8.5-10.1)
[2024-04-26 10:05] LABS: BASO % 0.9 % (0-2.0); EOS % 3.2 % (0-4.5); HEMATOCRIT 20.6 % (35.4-49); LYMPH % 13.8 % (8-40); MCH 29.3 pg (25.7-33.7); MCHC 32.6 g/dl (32.0-35.9); MEAN PLT VOLUME 7.3 fl (7.5-11.1); MONO % 3.8 % (3.8-10.2); NEUT % 78.3 % (42.8-82.8); PLATELET COUNT 171 10^3/uL (134-434); RBC 2.29 M/mm3 (4.00-5.60); RDW 16.7 % (11.9-15.9); WHITE BLOOD COUNT 6.7 K/mm3 (4.0-10.0)
[2024-04-26 10:11] LABS: HEMOGLOBIN 6.7 GM/dL (11.7-16.9)
[2024-04-26 11:19] LABS: ALBUMIN 1.6 g/dl (3.4-5.0); CALCIUM 7.7 mg/dL (8.5-10.1); POTASSIUM 4.5 mmol/L (3.5-5.1)
[2024-04-26 11:20] LABS: BLOOD UREA NITROGEN 38.7 mg/dL (7-18)
[2024-04-26 11:24] LABS: TOT PROT 6.1 g/dl (6.4-8.2)
[2024-04-26] MEDS ORDERED: SODIUM CHLORIDE 250 ML IV PRN (11:53)
[2024-04-26] MEDS: EPOETIN ALFA-EPBX 10,000 UNIT, EPOETIN ALFA-EPBX 2,000 UNIT SQ ONE (12:20)
[2024-04-26] MEDS: PEG 3350/NA SULF BICARB CL/KCL 4000 ML SOLN.RECON PO ONE (13:44)
[2024-04-26 15:47] VITALS: BMI 26.9
[2024-04-26] MEDS: BISACODYL 5 MG TABLET.DR (FP) PO ONE (21:12)
[2024-04-27 09:10] LABS: BASO % 0.9 % (0-2.0); EOS % 4.5 % (0-4.5); HEMOGLOBIN 9.2 GM/dL (11.7-16.9); LYMPH % 14.3 % (8-40); MCH 29.2 pg (25.7-33.7); MCHC 32.7 g/dl (32.0-35.9); MEAN CELL VOLUME 89.2 fl (80-96); MONO % 4.7 % (3.8-10.2); NEUT % 75.6 % (42.8-82.8); PLATELET COUNT 182 10^3/uL (134-434); RBC 3.13 M/mm3 (4.00-5.60); RDW 15.9 % (11.9-15.9); WHITE BLOOD COUNT 6.5 K/mm3 (4.0-10.0)
[2024-04-27 09:15] LABS: INR 1.37 (0.83-1.09); PROTHROMBIN TIME (PATIENT) 14.9 SEC (9.7-13.0)
[2024-04-27 09:38] LABS: POTASSIUM 3.9 mmol/L (3.5-5.1)
[2024-04-27 09:42] LABS: ALBUMIN 1.8 g/dl (3.4-5.0); BLOOD UREA NITROGEN 17.9 mg/dL (7-18); CALCIUM 8.3 mg/dL (8.5-10.1)
[2024-04-27 09:45] LABS: CREATININE 4.7 mg/dL (0.55-1.3)
[2024-04-27 09:47] LABS: BILIRUBIN,TOTAL 1.1 mg/dL (0.2-1); TOT PROT 6.2 g/dl (6.4-8.2)
[2024-04-28] MEDS ORDERED: SODIUM CHLORIDE 250 ML IV PRN (08:56)
[2024-04-28 09:15] LABS: HEMATOCRIT 28.6 % (35.4-49); HEMOGLOBIN 9.5 GM/dL (11.7-16.9); MCH 29.7 pg (25.7-33.7); PLATELET COUNT 190 10^3/uL (134-434); RBC 3.18 M/mm3 (4.00-5.60); RDW 17.7 % (11.9-15.9); WHITE BLOOD COUNT 5.7 K/mm3 (4.0-10.0)
[2024-04-28 09:32] LABS: POTASSIUM 3.7 mmol/L (3.5-5.1)
[2024-04-28 09:35] LABS: CALCIUM 8.3 mg/dL (8.5-10.1)
[2024-04-28 09:36] LABS: ALBUMIN 1.8 g/dl (3.4-5.0); BLOOD UREA NITROGEN 23.4 mg/dL (7-18)
[2024-04-28 09:39] LABS: CREATININE 5.9 mg/dL (0.55-1.3)
[2024-04-28 09:41] LABS: TOT PROT 6.5 g/dl (6.4-8.2)
[2024-04-28] MEDS: EPOETIN ALFA-EPBX 10,000 UNIT/ML VIAL SQ ONE (11:18)
[2024-04-30 06:41] VITALS: TEMP 98.5
[2024-04-30] MEDS ORDERED: SODIUM CHLORIDE 250 ML IV PRN (09:36)
[2024-04-30 09:43] LABS: HEMOGLOBIN 9.8 GM/dL (11.7-16.9); MCH 29.7 pg (25.7-33.7); MCHC 32.5 g/dl (32.0-35.9); MEAN CELL VOLUME 91.3 fl (80-96); PLATELET COUNT 164 10^3/uL (134-434); RBC 3.28 M/mm3 (4.00-5.60); WHITE BLOOD COUNT 7.3 K/mm3 (4.0-10.0)
[2024-04-30 10:02] LABS: POTASSIUM 3.6 mmol/L (3.5-5.1)
[2024-04-30 10:07] LABS: ALBUMIN 1.9 g/dl (3.4-5.0); CALCIUM 8.3 mg/dL (8.5-10.1)
[2024-04-30 10:08] LABS: BLOOD UREA NITROGEN 23.1 mg/dL (7-18)
[2024-04-30 10:10] LABS: CREATININE 6.1 mg/dL (0.55-1.3)
[2024-04-30 10:12] LABS: BILIRUBIN,TOTAL 1.2 mg/dL (0.2-1); TOT PROT 6.6 g/dl (6.4-8.2)
[2024-04-30] MEDS: EPOETIN ALFA-EPBX 10,000 UNIT/ML VIAL SQ ONE (10:20)
[2024-04-30 12:25] VITALS: BP 166/82; PULSE 89; RESP 17
[2024-04-30] MEDS: APIXABAN 2.5 MG TABLET PO SCH (13:06)
[2024-04-30] MEDS: CLOPIDOGREL BISULFATE 75 MG TABLET (FP) PO SCH (13:07)
== END 2024-04-30 14:26 | DRG 356 ==
LOC: JER 09:45 → JERBED 15:36 → J5S 04-21 13:51
PROVIDERS: ADMIT Family Medicine; ATTEND Family Medicine
PROC: 30233N1 Transfusion of Nonautologous Red Blood Cells into Peripheral Vein, Percutaneous Approach (ICD-10-PCS; 2024-04-19)
PROC: 5A1D70Z Performance of Urinary Filtration, Intermittent, Less than 6 Hours Per Day (ICD-10-PCS; 2024-04-21)
PROC: 0FT44ZZ Resection of Gallbladder, Percutaneous Endoscopic Approach (ICD-10-PCS; principal; 2024-04-23 09:30)
PROC: 5A1D70Z Performance of Urinary Filtration, Intermittent, Less than 6 Hours Per Day (ICD-10-PCS; 2024-04-26)
PROC: 3E0H8KZ Introduction of Other Diagnostic Substance into Lower GI, Via Natural or Artificial Opening Endoscopic (ICD-10-PCS; 2024-04-27)
PROC: 0DB98ZX Excision of Duodenum, Via Natural or Artificial Opening Endoscopic, Diagnostic (ICD-10-PCS; 2024-04-27)
PROC: 0DB68ZX Excision of Stomach, Via Natural or Artificial Opening Endoscopic, Diagnostic (ICD-10-PCS; 2024-04-27)
PROC: 0W3P8ZZ Control Bleeding in Gastrointestinal Tract, Via Natural or Artificial Opening Endoscopic (ICD-10-PCS; 2024-04-27)
PROC: 5A1D70Z Performance of Urinary Filtration, Intermittent, Less than 6 Hours Per Day (ICD-10-PCS; 2024-04-30)
DX: K92.2 Gastrointestinal hemorrhage, unspecified (principal); N18.6 End stage renal disease; E87.1 Hypo-osmolality and hyponatremia; I12.0 Hypertensive chronic kidney disease with stage 5 chronic kidney disease or end stage renal disease; I48.19 Other persistent atrial fibrillation; K80.00 Calculus of gallbladder with acute cholecystitis without obstruction; I45.2 Bifascicular block; K92.1 Melena; I25.10 Atherosclerotic heart disease of native coronary artery without angina pectoris; R94.5 Abnormal results of liver function studies; E78.5 Hyperlipidemia, unspecified; K80.20 Calculus of gallbladder without cholecystitis without obstruction; K55.20 Angiodysplasia of colon without hemorrhage; E11.51 Type 2 diabetes mellitus with diabetic peripheral angiopathy without gangrene; K64.8 Other hemorrhoids; D50.9 Iron deficiency anemia, unspecified; R16.1 Splenomegaly, not elsewhere classified; K76.0 Fatty (change of) liver, not elsewhere classified; D72.829 Elevated white blood cell count, unspecified; E11.22 Type 2 diabetes mellitus with diabetic chronic kidney disease; Z99.2 Dependence on renal dialysis; Z79.4 Long term (current) use of insulin
CPT/HCPCS: 0241U-QW; 36415; 36430; 36511; 71045-TC-FY; 74178-TC; 74181-TC; 76705-TC; 80053; 80076; 80307; 82248; 82272; 82550; 82728; 82803; 82962; 82977; 83516; 83540; 83550; 83605; 83690; 84466; 84484; 85025; 85027; 85045; 85610; 86038; 86704; 86803; 86850; 86900; 86901; 86922; 87040; 87340; 87517; 88304-TC; 88305-TC; 88342-TC; 93005; 93010; 94640; 94760; 97116-GP; 97162-GP; 99285-25; G0480; J0131; P9038; P9058; Q5106

== ENCOUNTER 2024-08-11 11:32 | Inpatient (IN) | payer OTHER, MEDICARE ==
[2024-08-11 13:54] LABS: HEMATOCRIT 31.1 % (40.1-51.0); HEMOGLOBIN 9.6 g/dL (13.7-17.5); MCHC 30.9 g/dl (32.3-36.5); MEAN CELL VOLUME 93.7 fl (79.0-92.2); MEAN PLT VOLUME 9.6 fl (9.4-12.4); PLATELET COUNT 141 x10^3/uL (163-337); RDW 15.4 % (12.2-16.4)
[2024-08-11 14:01] LABS: INR 1.91 (0.83-1.09)
[2024-08-11 14:16] LABS: ALBUMIN 2.1 g/dl (3.4-5.0); BLOOD UREA NITROGEN 34.4 mg/dL (7-18); CALCIUM 9.3 mg/dL (8.5-10.1)
[2024-08-11 14:20] LABS: BILIRUBIN,TOTAL 0.8 mg/dL (0.2-1); CREATININE 4.3 mg/dL (0.55-1.3)
[2024-08-11 14:22] LABS: TOT PROT 6.4 g/dl (6.4-8.2)
[2024-08-11 14:43] LABS: ERYTHROCYTE SEDIMENTATION RATE 96 mm/hr (0-20)
[2024-08-11] MEDS ORDERED: PIPERACILLIN/TAZOB 2.25 GM 2.25 GM/50 ML BAG IVPB ONE (15:07)
[2024-08-11] MEDS ORDERED: VANCOMYCIN/WATER 1250 MG 1,250 MG/250 ML BAG IVPB ONE (15:08)
[2024-08-11] MEDS: PIPERACILLIN/TAZOB 2.25 GM 2.25 GM in DEXTROSE 5%-WATER - 50 ML IVPB ONE (15:17)
[2024-08-11] MEDS: VANCOMYCIN/WATER 1250 MG 1,250 MG/250 ML BAG IVPB ONE (16:17)
[2024-08-11] MEDS: GABAPENTIN 100 MG CAPSULE PO SCH (22:00)
[2024-08-11] MEDS: INSULIN ASPART SLIDING SCALE (NOVOLOG) 1 VIAL SQ SCH (22:00)
[2024-08-11] MEDS: PIPERACILLIN/TAZOB 2.25 GM 2.25 GM in DEXTROSE 5%-WATER - 50 ML IVPB SCH (22:00)
[2024-08-12] MEDS: FUROSEMIDE 40 MG TABLET (FP) PO SCH (06:04)
[2024-08-12 08:22] LABS: ABSOLUTE IMMATURE GRANULOCYTES 0.17 x10^3/uL (0.0-0.031); BASOPHILS # 0.01 x10^3/uL (0.01-0.08); EOSINOPHIL % 1.1 % (0.8-7.0); EOSINOPHILS # 0.16 x10^3/uL (0.04-0.54); HEMATOCRIT 29.1 % (40.1-51.0); HEMOGLOBIN 9.1 g/dL (13.7-17.5); MCHC 31.3 g/dl (32.3-36.5); MEAN CELL VOLUME 93.6 fl (79.0-92.2); MEAN PLT VOLUME 10.7 fl (9.4-12.4); MONOCYTE # 0.47 x10^3/uL (0.30-0.82); MONOCYTE % 3.3 % (5.3-12.2); PLATELET COUNT 144 x10^3/uL (163-337); RDW 15.6 % (12.2-16.4)
[2024-08-12 08:41] LABS: POTASSIUM 3.8 mmol/L (3.5-5.1)
[2024-08-12 08:43] LABS: ALBUMIN 1.8 g/dl (3.4-5.0); CALCIUM 8.9 mg/dL (8.5-10.1)
[2024-08-12 08:45] LABS: BLOOD UREA NITROGEN 49.8 mg/dL (7-18); MAGNESIUM 1.8 mg/dL (1.8-2.4)
[2024-08-12 08:48] LABS: BILIRUBIN,TOTAL 0.7 mg/dL (0.2-1); CREATININE 5.5 mg/dL (0.55-1.3); PHOSPHOROUS 2.9 mg/dL (2.5-4.9); TOT PROT 5.7 g/dl (6.4-8.2)
[2024-08-12] MEDS: PANTOPRAZOLE 40 MG TABLET PO SCH (10:33)
[2024-08-12] MEDS: SERTRALINE HCL 25 MG TABLET (FP) PO SCH (10:33)
[2024-08-12] MEDS: VANCOMYCIN 1 GM PREMIX (F) 1 GM/200 ML BAG IVPB SCH (14:18)
[2024-08-12] MEDS ORDERED: SODIUM CHLORIDE 250 ML IV PRN (15:03)
[2024-08-13] MEDS: LIDOCAINE HCL 1%, 10 MG/ML (20ML VIAL) NR ONE
[2024-08-13] MEDS: ACETAMINOPHEN 1000 MG/100 ML BAG IVPB ONE (01:59)
[2024-08-13 08:20] LABS: HEMATOCRIT 30.2 % (40.1-51.0); HEMOGLOBIN 9.5 g/dL (13.7-17.5); MCHC 31.5 g/dl (32.3-36.5); MEAN CELL VOLUME 93.2 fl (79.0-92.2); MEAN PLT VOLUME 10.6 fl (9.4-12.4); PLATELET COUNT 138 x10^3/uL (163-337); RDW 15.7 % (12.2-16.4)
[2024-08-13 08:41] LABS: POTASSIUM 4.1 mmol/L (3.5-5.1)
[2024-08-13 08:44] LABS: CALCIUM 8.6 mg/dL (8.5-10.1)
[2024-08-13 08:45] LABS: ALBUMIN 1.8 g/dl (3.4-5.0)
[2024-08-13 08:49] LABS: BILIRUBIN,TOTAL 0.8 mg/dL (0.2-1); TOT PROT 5.8 g/dl (6.4-8.2)
[2024-08-13] MEDS: EPOETIN ALFA-EPBX 10,000 UNIT/ML VIAL IVPUSH ONE (09:58)
[2024-08-13] MEDS ORDERED: LIDOCAINE HCL 1%, 10 MG/ML (20ML VIAL) ONE (11:05)
[2024-08-13] MEDS ORDERED: DEXMEDETOMIDINE HCL 200 MCG/2 ML IVPB ONE (11:12)
[2024-08-13] MEDS ORDERED: PROPOFOL 20 ML ONE (11:29)
[2024-08-13] MEDS ORDERED: MIDAZOLAM HCL 2 MG/2 ML SINGLE DOSE VIAL ONE (11:29)
[2024-08-13] MEDS ORDERED: PROPOFOL 40 ML ONE (12:13)
[2024-08-13] MEDS ORDERED: ONDANSETRON 4 MG/2 ML VIAL ONE (12:22)
[2024-08-13] MEDS ORDERED: LIDOCAINE HCL/PF 2% SDV 5ML VIAL ONE (12:22)
[2024-08-13] MEDS ORDERED: GLYCOPYRROLATE 0.2 MG/1 ML VIAL ONE (12:22)
[2024-08-13] MEDS ORDERED: ONDANSETRON 4 MG/2 ML VIAL IVPUSH PRN (13:01)
[2024-08-13] MEDS ORDERED: SODIUM CHLORIDE 250 ML IV PRN (13:16)
[2024-08-13] MEDS: VANCOMYCIN 1 GM PREMIX (F) 1 GM/200 ML BAG IVPB SCH (14:07)
[2024-08-13] MEDS: GABAPENTIN 100 MG CAPSULE PO SCH (14:11)
[2024-08-13] MEDS: FUROSEMIDE 40 MG TABLET (FP) PO SCH (14:11)
[2024-08-13] MEDS: SODIUM CHLORIDE 1,000 ML IV SCH (14:12)
[2024-08-13] MEDS: INSULIN ASPART SLIDING SCALE (NOVOLOG) 1 VIAL SQ SCH (17:43)
[2024-08-13 18:35] LABS: HEPATITIS B SURF AG NON-MATERN NON-REACTIVE (NONREACTIVE)
[2024-08-13] MEDS: PIPERACILLIN/TAZOB 2.25 GM 2.25 GM in DEXTROSE 5%-WATER - 50 ML IVPB SCH (18:54)
[2024-08-14] MEDS ORDERED: VANCOMYCIN/WATER FOR INJ (PEG) 1 GM/200 ML BAG IVPB SCH (02:08)
[2024-08-14] MEDS: VANCOMYCIN/WATER FOR INJ (PEG) 1 GM/200 ML BAG IVPB SCH (04:05)
[2024-08-14] MEDS: oxyCODONE HCL 5 MG TABLET PO PRN (06:09)
[2024-08-14] MEDS: SERTRALINE HCL 25 MG TABLET (FP) PO SCH (09:38)
[2024-08-14] MEDS: PANTOPRAZOLE 40 MG TABLET PO SCH (09:38)
[2024-08-14] MEDS: SODIUM HYPOCHLORITE 0.25%- 473 ML BULK BOTTLE TP SCH (16:03)
[2024-08-15 08:16] LABS: BASOPHILS # 0.04 x10^3/uL (0.01-0.08); EOSINOPHIL % 0.8 % (0.8-7.0); EOSINOPHILS # 0.11 x10^3/uL (0.04-0.54); HEMATOCRIT 29.3 % (40.1-51.0); HEMOGLOBIN 8.9 g/dL (13.7-17.5); MCHC 30.4 g/dl (32.3-36.5); MEAN CELL VOLUME 95.4 fl (79.0-92.2); MEAN PLT VOLUME 10.5 fl (9.4-12.4); MONOCYTE # 0.36 x10^3/uL (0.30-0.82); MONOCYTE % 2.5 % (5.3-12.2); PLATELET COUNT 150 x10^3/uL (163-337); RDW 15.9 % (12.2-16.4)
[2024-08-15 08:39] LABS: ALBUMIN 1.6 g/dl (3.4-5.0); BLOOD UREA NITROGEN 50.2 mg/dL (7-18); CALCIUM 8.2 mg/dL (8.5-10.1)
[2024-08-15 08:43] LABS: CREATININE 6.5 mg/dL (0.55-1.3)
[2024-08-15 08:44] LABS: BILIRUBIN,TOTAL 0.7 mg/dL (0.2-1); TOT PROT 5.6 g/dl (6.4-8.2)
[2024-08-15] MEDS: ERTAPENEM SODIUM 1 GM in SODIUM CHLORIDE 50 ML IVPB ONE ×2 (18:39→18:51)
[2024-08-15] MEDS: INSULIN GLARGINE (LANTUS) 100 UNITS/ML UNITS SQ SCH (21:50)
[2024-08-16 08:09] LABS: HEMATOCRIT 27.6 % (40.1-51.0); HEMOGLOBIN 8.4 g/dL (13.7-17.5); MCHC 30.4 g/dl (32.3-36.5); MEAN CELL VOLUME 94.2 fl (79.0-92.2); MEAN PLT VOLUME 10.1 fl (9.4-12.4); PLATELET COUNT 134 x10^3/uL (163-337); RDW 16.4 % (12.2-16.4)
[2024-08-16 08:23] LABS: CHLORIDE 95 mmol/L (98-107); POTASSIUM 4.2 mmol/L (3.5-5.1); SODIUM 134 mmol/L (136-145)
[2024-08-16 08:26] LABS: ALBUMIN 1.6 g/dl (3.4-5.0); ANION GAP 11 mmol/L (4-13); BLOOD UREA NITROGEN 59.3 mg/dL (7-18); CO2 28 mmol/L (21-32); GLUCOSE,RANDOM 181 mg/dL (74-106)
[2024-08-16 08:29] LABS: SGOT/AST 56 U/L (15-37); SGPT/ALT 61 U/L (13-61)
[2024-08-16 08:31] LABS: BILIRUBIN,TOTAL 0.6 mg/dL (0.2-1); TOT PROT 5.8 g/dl (6.4-8.2)
[2024-08-16 08:57] LABS: ALK PHOS 286 U/L (45-117); CREATININE 7.8 mg/dL (0.55-1.3)
[2024-08-16] MEDS ORDERED: SODIUM CHLORIDE 250 ML IV PRN (09:05)
[2024-08-16] MEDS ORDERED: VANCOMYCIN 1 GM PREMIX (F) 1 GM/200 ML BAG IVPB SCH (10:00)
[2024-08-16] MEDS: EPOETIN ALFA-EPBX 10,000 UNIT/ML VIAL SQ ONE (10:11)
[2024-08-16] MEDS: ERTAPENEM SODIUM 1 GM in SODIUM CHLORIDE 50 ML IVPB SCH (13:22)
[2024-08-16] MEDS: VANCOMYCIN 1 GM PREMIX (F) 1 GM/200 ML BAG IVPB SCH (14:56)
[2024-08-16] MEDS: POLYETHYLENE GLYCOL (HEALTHYLAX) 3350 17 GM PACKET PO ONE (15:55)
[2024-08-16] MEDS: oxyCODONE HCL 5 MG TABLET PO PRN (22:16)
[2024-08-17] MEDS ORDERED: LIDOCAINE HCL 1%, 10 MG/ML (20ML VIAL) ONE (14:43)
[2024-08-17] MEDS ORDERED: BUPIVACAINE HCL/PF 0.5% (5MG/ML) 10 ML VIAL ONE (14:44)
[2024-08-17] MEDS ORDERED: SODIUM CHLORIDE 250 ML IV PRN (15:25)
[2024-08-17] MEDS: AMPICILLIN NA/SULBACTAM NA 1.5 GM VIAL IVPB ONE ×2 (16:00)
[2024-08-17] MEDS ORDERED: VANCOMYCIN 1,000 MG VIAL (RESTRICTED TO ID ONLY) ONE (16:06)
[2024-08-17] MEDS: VANCOMYCIN 1,000 MG VIAL (RESTRICTED TO ID ONLY) IVPB ONE (16:08)
[2024-08-17] MEDS: ACETAMINOPHEN 1000 MG/100 ML BAG IVPB ONE ×2 (17:46→19:54)
[2024-08-17] MEDS: LACTATED RINGERS SOLUTION 1,000 ML IV SCH ×2 (19:55→23:03)
[2024-08-17] MEDS: GABAPENTIN 100 MG CAPSULE PO SCH (21:30)
[2024-08-17] MEDS: INSULIN ASPART SLIDING SCALE (NOVOLOG) 1 VIAL SQ SCH (21:31)
[2024-08-17] MEDS: INSULIN GLARGINE (LANTUS) 100 UNITS/ML UNITS SQ SCH (21:31)
[2024-08-18] MEDS: oxyCODONE HCL 5 MG TABLET PO PRN (03:24)
[2024-08-18] MEDS: FUROSEMIDE 40 MG TABLET (FP) PO SCH (06:20)
[2024-08-18 08:26] LABS: HEMATOCRIT 30.9 % (40.1-51.0); HEMOGLOBIN 9.3 g/dL (13.7-17.5); MCHC 30.1 g/dl (32.3-36.5); MEAN CELL VOLUME 94.5 fl (79.0-92.2); MEAN PLT VOLUME 10.1 fl (9.4-12.4); PLATELET COUNT 155 x10^3/uL (163-337); RDW 16.3 % (12.2-16.4)
[2024-08-18 08:44] LABS: POTASSIUM 4.2 mmol/L (3.5-5.1)
[2024-08-18 08:49] LABS: ALBUMIN 1.6 g/dl (3.4-5.0); BLOOD UREA NITROGEN 41.7 mg/dL (7-18); CALCIUM 8.2 mg/dL (8.5-10.1)
[2024-08-18 08:51] LABS: BILIRUBIN,TOTAL 0.5 mg/dL (0.2-1); TOT PROT 5.9 g/dl (6.4-8.2)
[2024-08-18 08:52] LABS: CREATININE 6.3 mg/dL (0.55-1.3)
[2024-08-18] MEDS ORDERED: SODIUM CHLORIDE 250 ML IV PRN (09:43)
[2024-08-18] MEDS ORDERED: SERTRALINE HCL 50 MG TABLET (FP) PO SCH (10:00)
[2024-08-18] MEDS: EPOETIN ALFA-EPBX 10,000 UNIT/ML VIAL SQ ONE (10:48)
[2024-08-18] MEDS: VANCOMYCIN 1 GM PREMIX (F) 1 GM/200 ML BAG IVPB SCH (15:08)
[2024-08-18] MEDS: SERTRALINE HCL 50 MG TABLET (FP) PO SCH (15:09)
[2024-08-18] MEDS: PANTOPRAZOLE 40 MG TABLET PO SCH (15:09)
[2024-08-18] MEDS ORDERED: EPOETIN ALFA-EPBX 10,000 UNIT/ML VIAL SQ ONE (15:25)
[2024-08-18] MEDS ORDERED: ERTAPENEM SODIUM 1 GM in SODIUM CHLORIDE 50 ML IVPB SCH (15:45)
[2024-08-18] MEDS: ERTAPENEM SODIUM 1 GM in SODIUM CHLORIDE 50 ML IVPB SCH ×2 (16:35→19:59)
[2024-08-18] MEDS: SODIUM HYPOCHLORITE 0.25%- 473 ML BULK BOTTLE TP SCH (17:11)
[2024-08-20 08:01] LABS: POTASSIUM 3.8 mmol/L (3.5-5.1)
[2024-08-20 08:02] LABS: ABSOLUTE IMMATURE GRANULOCYTES 0.07 x10^3/uL (0.0-0.031); BASOPHILS # 0.02 x10^3/uL (0.01-0.08); CALCIUM 8.5 mg/dL (8.5-10.1); EOSINOPHIL % 0.6 % (0.8-7.0); EOSINOPHILS # 0.07 x10^3/uL (0.04-0.54); HEMATOCRIT 29.8 % (40.1-51.0); HEMOGLOBIN 8.7 g/dL (13.7-17.5); MCHC 29.2 g/dl (32.3-36.5); MEAN CELL VOLUME 95.8 fl (79.0-92.2); MEAN PLT VOLUME 9.8 fl (9.4-12.4); MONOCYTE # 0.44 x10^3/uL (0.30-0.82); MONOCYTE % 4.1 % (5.3-12.2); PLATELET COUNT 182 x10^3/uL (163-337); RDW 16.4 % (12.2-16.4)
[2024-08-20 08:03] LABS: BLOOD UREA NITROGEN 29.2 mg/dL (7-18)
[2024-08-20 08:06] LABS: CREATININE 5.7 mg/dL (0.55-1.3)
[2024-08-20 09:09] LABS: ALBUMIN 1.7 g/dl (3.4-5.0)
[2024-08-20] MEDS ORDERED: SODIUM CHLORIDE 250 ML IV PRN (09:10)
[2024-08-20 09:12] LABS: BILIRUBIN,DIRECT 0.2 mg/dL (0.0-0.2)
[2024-08-20 09:14] LABS: BILIRUBIN,TOTAL 0.5 mg/dL (0.2-1); TOT PROT 6.2 g/dl (6.4-8.2)
[2024-08-20] MEDS: EPOETIN ALFA-EPBX 10,000 UNIT/ML VIAL SQ ONE (10:51)
[2024-08-22 13:51] VITALS: BMI 23.3
[2024-08-22] MEDS: AMINO ACIDS/PROTEIN HYDROLYS 30 ML LIQUID.PKT PO SCH (17:28)
[2024-08-22] MEDS: HEPARIN NA (PORCINE) 5,000 UNITS/ML 1ML VIAL SQ SCH (21:26)
[2024-08-22] MEDS: LACTULOSE 20 GM/30 ML UDC (FOR ORAL USE ONLY) PO SCH (21:26)
[2024-08-23] MEDS ORDERED: SODIUM CHLORIDE 250 ML IV PRN (09:32)
[2024-08-23] MEDS: EPOETIN ALFA-EPBX 10,000 UNIT/ML VIAL IVPUSH ONE (10:52)
[2024-08-23] MEDS: ERTAPENEM SODIUM 1 GM in SODIUM CHLORIDE 50 ML IVPB SCH (13:48)
[2024-08-23] MEDS: VITAMIN B COMP W-C 1 EA TABLET (NEPHRO-VITE) PO SCH (13:48)
[2024-08-23] MEDS: VANCOMYCIN 1 GM PREMIX (F) 1 GM/200 ML BAG IVPB SCH (15:14)
[2024-08-25 07:14] LABS: HEMATOCRIT 28.4 % (40.1-51.0); HEMOGLOBIN 8.1 g/dL (13.7-17.5); MCHC 28.5 g/dl (32.3-36.5); MEAN CELL VOLUME 97.3 fl (79.0-92.2); MEAN PLT VOLUME 9.9 fl (9.4-12.4); PLATELET COUNT 172 x10^3/uL (163-337); RDW 16.9 % (12.2-16.4)
[2024-08-25] MEDS: INSULIN ASPART SLIDING SCALE (NOVOLOG) 1 VIAL SQ SCH (07:46)
[2024-08-25] MEDS ORDERED: SODIUM CHLORIDE 250 ML IV PRN (10:32)
[2024-08-25] MEDS: EPOETIN ALFA-EPBX 10,000 UNIT/ML VIAL IVPUSH ONE (12:08)
[2024-08-25 12:29] LABS: POTASSIUM 3.2 mmol/L (3.5-5.1)
[2024-08-25 12:33] LABS: ALBUMIN 1.7 g/dl (3.4-5.0); BLOOD UREA NITROGEN 28.9 mg/dL (7-18)
[2024-08-25 12:36] LABS: CREATININE 4.8 mg/dL (0.55-1.3)
[2024-08-25 12:38] LABS: BILIRUBIN,TOTAL 0.7 mg/dL (0.2-1); TOT PROT 6.3 g/dl (6.4-8.2)
[2024-08-25] MEDS: POTASSIUM CHLORIDE ORAL LIQUID 20 MEQ/15 ML PO ONE (13:59)
[2024-08-26] MEDS ORDERED: ONDANSETRON 4 MG/2 ML VIAL ONE (07:58)
[2024-08-26] MEDS ORDERED: DEXAMETHASONE SOD PHOSPHATE 4 MG/1 ML VIAL ONE (07:58)
[2024-08-26] MEDS ORDERED: GLYCOPYRROLATE 0.2 MG/1 ML VIAL ONE (07:58)
[2024-08-26] MEDS ORDERED: ROCURONIUM BROMIDE 50 MG/5 ML SYRINGE ONE (07:58)
[2024-08-26] MEDS ORDERED: PROPOFOL 80 ML ONE (08:02)
[2024-08-26] MEDS ORDERED: MIDAZOLAM HCL 2 MG/2 ML SINGLE DOSE VIAL ONE ×2 (08:23→10:10)
[2024-08-26] MEDS ORDERED: ALBUTEROL SO4 HFA INHALER IH ONE (08:26)
[2024-08-26 08:30] LABS: ABSOLUTE IMMATURE GRANULOCYTES 0.02 x10^3/uL (0.0-0.031); BASOPHILS # 0.04 x10^3/uL (0.01-0.08); EOSINOPHILS # 0.11 x10^3/uL (0.04-0.54); HEMATOCRIT 28.2 % (40.1-51.0); HEMOGLOBIN 8.4 g/dL (13.7-17.5); MCHC 29.8 g/dl (32.3-36.5); MEAN CELL VOLUME 96.9 fl (79.0-92.2); MEAN PLT VOLUME 9.9 fl (9.4-12.4); MONOCYTE # 0.26 x10^3/uL (0.30-0.82); MONOCYTE % 4.7 % (5.3-12.2); PLATELET COUNT 162 x10^3/uL (163-337); RDW 16.9 % (12.2-16.4)
[2024-08-26 08:40] LABS: INR 1.34 (0.83-1.09); PROTHROMBIN TIME (PATIENT) 14.6 SEC (9.7-13.0)
[2024-08-26 08:43] LABS: ACTIVATED PTT 37.8 SECONDS (25.2-36.5)
[2024-08-26 08:46] LABS: CALCIUM 8.4 mg/dL (8.5-10.1)
[2024-08-26 08:47] LABS: BLOOD UREA NITROGEN 25.8 mg/dL (7-18); POTASSIUM 3.6 mmol/L (3.5-5.1)
[2024-08-26 08:50] LABS: CREATININE 4.3 mg/dL (0.55-1.3)
[2024-08-26] MEDS ORDERED: KETAMINE HCL 200 MG/20 ML VIAL ONE (09:37)
[2024-08-26] MEDS ORDERED: MAGNESIUM SULF 50% (8.12 MEQ/2 ML-1 GM VIAL) ONE (09:45)
[2024-08-26] MEDS ORDERED: CALCIUM CHLORIDE 1 GM/10 ML *DISP.SYRIN ONE (11:28)
[2024-08-26] MEDS: VANCOMYCIN 1 GM PREMIX (F) 1 GM/200 ML BAG IVPB SCH (12:00)
[2024-08-26] MEDS ORDERED: HYDROmorphone HCl 2 MG/ML VIAL IVPB PRN (12:21)
[2024-08-26 12:35] LABS: HEMATOCRIT 26.4 % (40.1-51.0); MCHC 30.3 g/dl (32.3-36.5); MEAN CELL VOLUME 95.3 fl (79.0-92.2); MEAN PLT VOLUME 9.4 fl (9.4-12.4); PLATELET COUNT 144 x10^3/uL (163-337); RDW 16.4 % (12.2-16.4)
[2024-08-26] MEDS: ALBUMIN HUMAN 5% 500 ML IV SOLUTION IV ONE ×2 (12:37→13:47)
[2024-08-26 12:42] LABS: INR 1.42 (0.83-1.09); PROTHROMBIN TIME (PATIENT) 15.5 SEC (9.7-13.0)
[2024-08-26] MEDS ORDERED: HYDROmorphone HCL CARPU-JECT 2 MG/1 ML DISP.SYRIN IVPB PRN (12:43)
[2024-08-26 12:45] LABS: ACTIVATED PTT 39.4 SECONDS (25.2-36.5)
[2024-08-26] MEDS ORDERED: FUROSEMIDE 40 MG TABLET (FP) PO SCH (14:00)
[2024-08-26] MEDS: DOCUSATE SODIUM 100 MG CAPSULE (FP) PO SCH (14:04)
[2024-08-26] MEDS: GABAPENTIN 100 MG CAPSULE PO SCH (14:05)
[2024-08-26] MEDS: ERTAPENEM SODIUM 1 GM in SODIUM CHLORIDE 50 ML IVPB SCH (14:16)
[2024-08-26] MEDS: SODIUM HYPOCHLORITE 0.25%- 473 ML BULK BOTTLE TP SCH (15:29)
[2024-08-26] MEDS: INSULIN ASPART SLIDING SCALE (NOVOLOG) 1 VIAL SQ SCH (18:07)
[2024-08-26] MEDS: ACETAMINOPHEN 1000 MG/100 ML BAG IVPB SCH (18:10)
[2024-08-26] MEDS: AMINO ACIDS/PROTEIN HYDROLYS 30 ML LIQUID.PKT PO SCH (18:10)
[2024-08-26] MEDS: LACTULOSE 20 GM/30 ML UDC (FOR ORAL USE ONLY) PO SCH (22:22)
[2024-08-26] MEDS: oxyCODONE HCL 5 MG TABLET PO PRN (22:23)
[2024-08-26] MEDS: HEPARIN NA (PORCINE) 5,000 UNITS/ML 1ML VIAL SQ SCH (22:24)
[2024-08-26] MEDS: INSULIN GLARGINE (LANTUS) 100 UNITS/ML UNITS SQ SCH (22:25)
[2024-08-27] MEDS: oxyCODONE HCL 5 MG TABLET PO PRN (07:16)
[2024-08-27 08:05] LABS: HEMATOCRIT 24.1 % (40.1-51.0); HEMOGLOBIN 7.4 g/dL (13.7-17.5); MCHC 30.7 g/dl (32.3-36.5); MEAN CELL VOLUME 93.8 fl (79.0-92.2); MEAN PLT VOLUME 9.4 fl (9.4-12.4); PLATELET COUNT 140 x10^3/uL (163-337); RDW 17.2 % (12.2-16.4)
[2024-08-27 08:11] LABS: INR 1.24 (0.83-1.09); PROTHROMBIN TIME (PATIENT) 13.6 SEC (9.7-13.0)
[2024-08-27 08:14] LABS: ACTIVATED PTT 33.8 SECONDS (25.2-36.5)
[2024-08-27 08:25] LABS: POTASSIUM 4.1 mmol/L (3.5-5.1)
[2024-08-27 08:31] LABS: ALBUMIN 1.8 g/dl (3.4-5.0); CALCIUM 8.8 mg/dL (8.5-10.1)
[2024-08-27 08:32] LABS: BLOOD UREA NITROGEN 39.9 mg/dL (7-18)
[2024-08-27 08:33] LABS: CREATININE 5.7 mg/dL (0.55-1.3)
[2024-08-27 08:34] LABS: BILIRUBIN,TOTAL 0.6 mg/dL (0.2-1); TOT PROT 5.7 g/dl (6.4-8.2)
[2024-08-27] MEDS ORDERED: SODIUM CHLORIDE 250 ML IV PRN (08:40)
[2024-08-27] MEDS: EPOETIN ALFA-EPBX 10,000 UNIT, EPOETIN ALFA-EPBX 2,000 UNIT SQ ONE (09:36)
[2024-08-27] MEDS: SERTRALINE HCL 50 MG TABLET (FP) PO SCH (13:13)
[2024-08-27] MEDS: VITAMIN B COMP W-C 1 EA TABLET (NEPHRO-VITE) PO SCH (13:13)
[2024-08-27] MEDS: PANTOPRAZOLE 40 MG TABLET PO SCH (13:13)
[2024-08-27] MEDS ORDERED: EPOETIN ALFA-EPBX 4,000 UNIT/ML VIAL SQ ONE (14:49)
[2024-08-27] MEDS: HYDROmorphone HCl 2 MG/ML VIAL IVPB PRN (21:38)
[2024-08-28 08:21] LABS: ABSOLUTE IMMATURE GRANULOCYTES 0.04 x10^3/uL (0.0-0.031); BASOPHILS # 0.03 x10^3/uL (0.01-0.08); EOSINOPHIL % 0.6 % (0.8-7.0); EOSINOPHILS # 0.04 x10^3/uL (0.04-0.54); HEMATOCRIT 25.1 % (40.1-51.0); HEMOGLOBIN 7.5 g/dL (13.7-17.5); MCHC 29.9 g/dl (32.3-36.5); MEAN CELL VOLUME 96.2 fl (79.0-92.2); MEAN PLT VOLUME 9.8 fl (9.4-12.4); MONOCYTE # 0.37 x10^3/uL (0.30-0.82); MONOCYTE % 5.2 % (5.3-12.2); PLATELET COUNT 164 x10^3/uL (163-337); RDW 17.2 % (12.2-16.4)
[2024-08-28 08:35] LABS: INR 1.16 (0.83-1.09); POTASSIUM 3.9 mmol/L (3.5-5.1); PROTHROMBIN TIME (PATIENT) 12.6 SEC (9.7-13.0)
[2024-08-28 08:40] LABS: CALCIUM 8.8 mg/dL (8.5-10.1)
[2024-08-28 08:41] LABS: ALBUMIN 1.8 g/dl (3.4-5.0); BLOOD UREA NITROGEN 31.4 mg/dL (7-18)
[2024-08-28 08:45] LABS: BILIRUBIN,TOTAL 0.4 mg/dL (0.2-1)
[2024-08-28 08:46] LABS: TOT PROT 5.7 g/dl (6.4-8.2)
[2024-08-28] MEDS ORDERED: ACETAMINOPHEN 1000 MG/100 ML BAG IVPB PRN (10:30)
[2024-08-28 14:26] LABS: HEMOGLOBIN 7.7 g/dL (13.7-17.5); MCHC 29.6 g/dl (32.3-36.5); MEAN CELL VOLUME 97.4 fl (79.0-92.2); MEAN PLT VOLUME 9.3 fl (9.4-12.4); PLATELET COUNT 185 x10^3/uL (163-337); RDW 17.5 % (12.2-16.4)
[2024-08-28 14:49] LABS: POTASSIUM 4.5 mmol/L (3.5-5.1)
[2024-08-28 14:52] LABS: ALBUMIN 1.9 g/dl (3.4-5.0); BLOOD UREA NITROGEN 32.2 mg/dL (7-18)
[2024-08-28 14:55] LABS: CREATININE 4.4 mg/dL (0.55-1.3)
[2024-08-28 14:57] LABS: BILIRUBIN,TOTAL 0.4 mg/dL (0.2-1)
[2024-08-28] MEDS ORDERED: NALOXONE HCL 0.4 MG/ML VIAL IVPUSH PRN (16:20)
[2024-08-28] MEDS ORDERED: HYDROmorphone HCl 2 MG/ML VIAL IVPUSH PRN (16:59)
[2024-08-28] MEDS: HYDROmorphone HCl 2 MG/ML VIAL IVPUSH ONE (18:02)
[2024-08-29 08:05] LABS: HEMATOCRIT 23.5 % (40.1-51.0); MCHC 29.8 g/dl (32.3-36.5); MEAN CELL VOLUME 96.7 fl (79.0-92.2); PLATELET COUNT 163 x10^3/uL (163-337); RDW 17.2 % (12.2-16.4)
[2024-08-29 08:19] LABS: INR 1.19 (0.83-1.09); PROTHROMBIN TIME (PATIENT) 13.1 SEC (9.7-13.0)
[2024-08-29 08:22] LABS: ACTIVATED PTT 35.6 SECONDS (25.2-36.5)
[2024-08-29 08:29] LABS: CALCIUM 8.6 mg/dL (8.5-10.1)
[2024-08-29 08:32] LABS: ALBUMIN 1.7 g/dl (3.4-5.0); BLOOD UREA NITROGEN 44.2 mg/dL (7-18)
[2024-08-29 08:35] LABS: CREATININE 5.3 mg/dL (0.55-1.3)
[2024-08-29 08:37] LABS: BILIRUBIN,TOTAL 0.4 mg/dL (0.2-1); TOT PROT 5.5 g/dl (6.4-8.2)
[2024-08-29] MEDS: ACETAMINOPHEN 1000 MG/100 ML BAG IVPB PRN (09:45)
[2024-08-29] MEDS ORDERED: SODIUM CHLORIDE 250 ML IV PRN (15:00)
[2024-08-30 07:32] LABS: HEMATOCRIT 21.9 % (40.1-51.0); HEMOGLOBIN 6.4 g/dL (13.7-17.5); MCHC 29.2 g/dl (32.3-36.5); MEAN CELL VOLUME 97.8 fl (79.0-92.2); MEAN PLT VOLUME 9.8 fl (9.4-12.4); PLATELET COUNT 138 x10^3/uL (163-337); RDW 17.4 % (12.2-16.4)
[2024-08-30 07:51] LABS: POTASSIUM 3.8 mmol/L (3.5-5.1)
[2024-08-30 07:54] LABS: CALCIUM 8.1 mg/dL (8.5-10.1)
[2024-08-30 07:55] LABS: ALBUMIN 1.7 g/dl (3.4-5.0); BLOOD UREA NITROGEN 59.1 mg/dL (7-18)
[2024-08-30 07:58] LABS: CREATININE 6.6 mg/dL (0.55-1.3)
[2024-08-30 08:00] LABS: BILIRUBIN,TOTAL 0.6 mg/dL (0.2-1); TOT PROT 5.7 g/dl (6.4-8.2)
[2024-08-30] MEDS ORDERED: oxyCODONE HCL 5 MG TABLET PO PRN ×2 (08:17)
[2024-08-30] MEDS: EPOETIN ALFA-EPBX 4,000 UNIT/ML VIAL IVPUSH ONE (11:11)
[2024-08-30 14:02] VITALS: BP 167/62; PULSE 64; RESP 17; TEMP 97.7
== END 2024-08-30 18:24 | DRG 239 ==
LOC: JER 11:32 → JERBED 15:14 → J7W 19:30
PROVIDERS: ADMIT Internal Medicine; ATTEND Family Medicine
PROC: 0KBV0ZZ Excision of Right Foot Muscle, Open Approach (ICD-10-PCS; 2024-08-13)
PROC: 0QBN0ZZ Excision of Right Metatarsal, Open Approach (ICD-10-PCS; 2024-08-13)
PROC: 0KBV0ZZ Excision of Right Foot Muscle, Open Approach (ICD-10-PCS; 2024-08-17)
PROC: 30233N1 Transfusion of Nonautologous Red Blood Cells into Peripheral Vein, Percutaneous Approach (ICD-10-PCS; 2024-08-26)
PROC: 0Y6C0Z1 Detachment at Right Upper Leg, High, Open Approach (ICD-10-PCS; principal; 2024-08-26 11:00)
PROC: 5A1D70Z Performance of Urinary Filtration, Intermittent, Less than 6 Hours Per Day (ICD-10-PCS; 2024-08-30)
DX: E11.52 Type 2 diabetes mellitus with diabetic peripheral angiopathy with gangrene (principal); N18.6 End stage renal disease; I13.2 Hypertensive heart and chronic kidney disease with heart failure and with stage 5 chronic kidney disease, or end stage renal disease; R78.81 Bacteremia; L02.611 Cutaneous abscess of right foot; M86.8X7 Other osteomyelitis, ankle and foot; L02.415 Cutaneous abscess of right lower limb; E11.69 Type 2 diabetes mellitus with other specified complication; E11.621 Type 2 diabetes mellitus with foot ulcer; L03.031 Cellulitis of right toe; L97.519 Non-pressure chronic ulcer of other part of right foot with unspecified severity; J44.9 Chronic obstructive pulmonary disease, unspecified; E11.22 Type 2 diabetes mellitus with diabetic chronic kidney disease; I50.9 Heart failure, unspecified; Z99.2 Dependence on renal dialysis; D53.9 Nutritional anemia, unspecified; I48.91 Unspecified atrial fibrillation; I25.10 Atherosclerotic heart disease of native coronary artery without angina pectoris; E78.5 Hyperlipidemia, unspecified; D72.829 Elevated white blood cell count, unspecified; R74.01 Elevation of levels of liver transaminase levels; B95.61 Methicillin susceptible Staphylococcus aureus infection as the cause of diseases classified elsewhere; D63.1 Anemia in chronic kidney disease
CPT/HCPCS: 36415; 36430; 71045-TC-FY; 73630-TC-RT-FY; 76705-TC; 80048; 80053; 80076; 82140; 82550; 82962; 82977; 83735; 84100; 84443; 85025; 85027; 85610; 85651; 85730; 86140; 86704; 86850; 86900; 86901; 86922; 87040; 87070; 87205; 87340; 88304-TC; 88305-TC; 88307-TC; 88311-TC; 93005; 93010; 93926-TC; 94760; 97162-GP; 99285-25; E0186; G0277; G0463-25; G0480; J1100; P9058; Q5106

== ENCOUNTER 2024-11-23 13:14 | Day surgery (SDC) | payer OTHER, MEDICARE ==
[2024-11-23] MEDS ORDERED: MIDAZOLAM HCL 2 MG/2 ML SINGLE DOSE VIAL ONE (14:23)
[2024-11-23] MEDS: MIDAZOLAM HCL 2 MG/2 ML SINGLE DOSE VIAL IVPUSH ONE (14:28)
[2024-11-23 15:25] VITALS: RESP 16
[2024-11-23 15:27] VITALS: TEMP 98
[2024-11-23 15:30] VITALS: BP 146/76; PULSE 90
== END 2024-11-23 15:33 | disposition home or self-care (01) ==
LOC: JRADIR 13:14
PROVIDERS: ATTEND Surgery
PROC: 05763ZZ Dilation of Left Subclavian Vein, Percutaneous Approach (ICD-10-PCS; principal; 2024-11-23)
DX: T82.898A Other specified complication of vascular prosthetic devices, implants and grafts, initial encounter (principal)
CPT/HCPCS: 37248; 76000-TC-FY; C1725; C1769; C1894